=== PATIENT | female | born 1950 | race Caucasian/White ===

== ENCOUNTER 2017-01-19 21:18 | Emergency (ER) | payer BC ==
[2017-01-19 21:37] VITALS: BP 122/60
[2017-01-19] MEDS ORDERED: BSS OPTH.SOL* BTL OPHTHALMIC ONE (21:44)
[2017-01-19] MEDS ORDERED: Fluorescein Sodium TOPICAL* 1 MG TEST OPHTHALMIC ONE (21:44)
--- NOTE | 2017-01-19 21:54 | UC ---
Eye Complaint HPI - HPI Summary HPI Summary: left eye irritation, after working out in the garden today feels like a fb in eye - History of Current Complaint Chief Complaint: UCEye Stated Complaint: EYE IRRITATION Time Seen by Provider: 01/19/17 21:43 Hx Obtained From: Patient Hx Last Menstrual Period: n/a ?: No Onset/Duration: Sudden Onset, Lasting Hours, Still Present Timing: Constant Severity Initially: Moderate Severity Currently: Mild Location of Injury: Conjunctiva, Eye Lid (upper) Character: Foreign Body Sensation Aggravating Factor(s): Nothing Alleviating Factor(s): Nothing Associated Signs And Symptoms: Positive: Drainage (Clear) - Allergies/Home Medications Allergies/Adverse Reactions: Allergies Allergy/AdvReac Type Severity Reaction Status Date / Time Penicillins Allergy Intermediate Rash Verified 01/19/17 21:28 Sulfamethoxazole Allergy Intermediate Rash Verified 01/19/17 21:28 w/Trimethoprim [From Bactrim] Sulfa Antibiotics Allergy Unknown Verified 01/19/17 21:28 Reaction Details PMH/Surg Hx/FS Hx/Imm Hx Previously Healthy: No Endocrine History Of: Reports: Diabetes Denies: Thyroid Disease Cardiovascular History Of: Reports: Hypertension Denies: Cardiac Disorders Respiratory History Of: Reports: COPD Denies: Asthma GI/ History Of: Denies: Ulcer Cancer History Of: Denies: Breast Cancer - Surgical History Surgical History: Yes Surgery Procedure, Year, and Place: Knee Replacement X3Neck Fusion Hysterectomy 1986. Thyroid surgery - Family History Known Family History: Positive: None Family History: no cardio vascular issues in family lineage - Social History Occupation: Retired Lives: With Family Alcohol Use: None Substance Use Type: None Smoking Status (MU): Never Smoked Tobacco Household Exposure Type: Cigarettes - Immunization History Most Recent Influenza Vaccination: 2016 Most Recent Tetanus Shot: 07/02/14 [facility] [place] Review of Systems Constitutional: Negative Skin: Negative Eyes: Drainage - clae OS, Eye Redness - OS ENT: Negative Respiratory: Negative Cardiovascular: Negative Gastrointestinal: Negative Genitourinary: Negative Motor: Negative Neurovascular: Negative Musculoskeletal: Negative Neurological: Negative Psychological: Negative All Other Systems Reviewed And Are Negative: Yes Physical Exam Triage Information Reviewed: Yes Appearance: Well-Appearing, No Pain Distress, Well-Nourished Vital Signs: Initial Vital Signs Temp 98.2 F 01/19/17 21:30 Pulse 66 01/19/17 21:30 Resp 18 01/19/17 21:30 BP 122/60 01/19/17 21:30 Pulse Ox 97 01/19/17 21:30 Vital Signs Reviewed: Yes Eye Exam: Normal, Other Eyes: Positive: Conjunctiva Inflamed - os, Discharge - clear os ENT Exam: Normal ENT: Positive: Normal ENT inspection, Hearing grossly normal, Pharynx normal, TMs normal. Negative: Nasal congestion, Nasal drainage, Tonsillar swelling, Tonsillar exudate, Trismus, Other: Dental Exam: Normal Neck exam: Normal Neck: Positive: Supple, Nontender, No Lymphadenopathy Respiratory Exam: Normal Respiratory: Positive: Chest non-tender, Lungs clear, Normal breath sounds, No respiratory distress, No accessory muscle use Cardiovascular Exam: Normal Cardiovascular: Positive: RRR, No Murmur, Pulses Normal, Brisk Capillary Refill Musculoskeletal Exam: Normal Musculoskeletal: Positive: Strength Intact, ROM Intact, No Edema Neurological Exam: Normal Neurological: Positive: Alert, Muscle Tone Normal Psychological Exam: Normal Skin Exam: Normal Re-Evaluation - Re-Evaluation First Eval Change: Unchanged - small Laceration about 1 o'clock Eye Complaint Course/Dx - Course Course Of Treatment: erythromycin ointment, follow with pcp/opthom. prn - Differential Dx/Diagnosis Differential Diagnosis/HQI/PQRI: Corneal Abrasion, Periorbital Cellulitis, Orbital Cellulitis Provider Diagnoses: OS Corneal Abrasion Discharge - Discharge Plan Condition: Stable Disposition: HOME Patient Education Materials: Erythromycin (Into the eye), Corneal Abrasion (ED ) Referrals: Sarkis Oh MD [Medical Doctor] - If Needed
[2017-01-19] MEDS ORDERED: Erythromycin OPTH OINT* APPLIC OINT LEFT EYE ONE (21:55)
== END 2017-01-19 22:10 | disposition home or self-care (01) ==
LOC: UCCORT 21:18
DX: S05.02XA Injury of conjunctiva and corneal abrasion without foreign body, left eye, initial encounter (principal); X58.XXXA Exposure to other specified factors, initial encounter; Y93.9 Activity, unspecified; Y92.9 Unspecified place or not applicable; Y99.9 Unspecified external cause status
CPT/HCPCS: 99212; A9270-GY; G0463

== ENCOUNTER 2017-02-26 14:26 | Emergency (ER) | payer BC ==
[2017-02-26] MEDS ORDERED: NS 0.9% 1000 ML* 2,000 ML IV ONE (17:51)
[2017-02-26] MEDS ORDERED: Pantoprazole IV* 40 MG IV ONE (17:51)
[2017-02-26] MEDS ORDERED: Morphine INJ* 4 MG/ML 1 ML SYRINGE IV ONE (17:51)
[2017-02-26] MEDS ORDERED: Ondansetron INJ* 2 MG/ML VIAL IV ONE (17:51)
[2017-02-26 18:41] LABS: Mean Platelet Volume 9 um3 (7.4-10.4); Red Cell Distribution Width 15 % (10.5-15)
--- NOTE | 2017-02-26 18:41 | RAD ---
Indication: Upper abdominal pain. Real-time sonography of the right upper quadrant was performed. The liver is normal in size. No focal lesions or intrahepatic ductal dilatation is noted. The gallbladder demonstrates 6 mm gallbladder polyp. No pericholecystic fluid or wall thickening is identified. The common duct measures 4 mm. The right kidney measures 11.7 x 5.3 x 4.9 cm with no hydronephrosis. The pancreatic head, neck and proximal body demonstrates no mass or pancreatic duct dilatation. Aorta and inferior vena cava are unremarkable. IMPRESSION: Gallbladder polyp. No biliary duct dilatation is noted.
[2017-02-26 18:45] LABS: Hematocrit 41 % (35-47); Hemoglobin 13.6 g/dl (12.0-16.0); Mean Corpuscular HGB Conc 33 g/dl (31-36); Mean Corpuscular Hemoglobin 28 pg (27-31); Mean Corpuscular Volume 85 fL (80-97); Red Blood Count 4.81 10^6/ul (4.0-5.4); White Blood Count 11.1 10^3/ul (3.5-10.8)
[2017-02-26 19:00] LABS: Albumin 4.1 g/dL (3.2-5.2); BUN/Creatinine Ratio 23.9 (8-20); C Reactive Protein 7.79 mg/L (< 5.00); Calcium 9.7 mg/dL (8.6-10.3); EGFR African American 106.3 (>60); EGFR Non-African American 82.6 (>60); Globulin 3.2 g/dL (2-4); Magnesium 1.9 mg/dL (1.9-2.7); Potassium 3.6 mmol/L (3.5-5.0); Total Bilirubin 0.6 mg/dL (0.2-1.0); Total Protein 7.3 g/dL (6.4-8.9)
--- NOTE | 2017-02-26 19:08 | RAD ---
Indication: Epigastric pain. Single frontal view of the chest performed at 1830 hours was reviewed. Comparison is made with previous exam dated August 13, 2012. No mediastinal shift is noted. Heart is of normal size and configuration. Lung blanton appear clear. IMPRESSION: NO ACTIVE CARDIOPULMONARY DISEASE IS NOTED.
[2017-02-26] MEDS ORDERED: Al Hydrox/Mg Hydrox/Simet LIQ* 30 ML UDC PO ONE (19:16)
[2017-02-26] MEDS ORDERED: Lidocaine 2% VISCOUS* 15 ML UDC PO ONE (19:16)
[2017-02-26] MEDS ORDERED: Iodixanol* (CONTRAST) 320 MG/ML 100 ML SDV IV ONE (19:39)
--- NOTE | 2017-02-26 20:20 | RAD ---
Indication: Upper abdominal pain. Contrast: Administered 99.9 ml of VISAPAQUE 320 mgi/ml CT of the abdomen and pelvis was performed after oral and IV contrast demonstration. Coronal and sagittal reconstructed images were obtained. The lung bases demonstrate no pleural fluid, nodules or masses. Heart is of normal size without evidence of pericardial effusion. Liver is normal in size. No focal lesions or intrahepatic ductal dilatation is noted. The gallbladder demonstrates no calcific gallstones. No pericholecystic fluid or wall thickening is identified. The spleen is normal in size. The common duct is not dilated. The pancreas demonstrates no mass or pancreatic duct dilatation. No adrenal masses are noted. The kidneys demonstrate symmetric nephrograms without focal lesions or hydronephrosis. Aorta demonstrates no aneurysmal dilatation. Mild calcifications from atherosclerosis is noted. There is moderate degree of wall thickening in the gastric antrum. This is suspicious for antral gastritis. Clinical correlation is suggested. Small bowel demonstrates no abnormal dilatation. Colon is filled with stool. CT of the pelvis demonstrates no retroperitoneal or pelvic adenopathy. Scattered 5 to 7 mm common iliac and external iliac lymph nodes are scattered throughout the pelvis. The patient appears to be status post hysterectomy. A structure resembling the left ovary is noted. The urinary bladder demonstrates no focal thickening. No hernias are noted. IMPRESSION: THERE IS DIFFUSE SUBMUCOSAL EDEMA IN THE GASTRIC ANTRUM SUSPICIOUS FOR ANTRAL GASTRITIS. CLINICAL CORRELATION IS SUGGESTED. PATIENT IS STATUS POST HYSTERECTOMY. NO OTHER MASSES OR FLUID COLLECTIONS ARE NOTED.
[2017-02-26 20:33] LABS: TSH (Thyroid Stimulating Horm) 2.02 mcIU/mL (0.34-5.60)
[2017-02-27 07:37] VITALS: BP 177/65
--- NOTE | 2017-03-03 22:36 | ED ---
Shabana Schuster Alfonso, scribed for Joaquin Kasper MD on 02/26/17 at 1752 . Abdominal Pain/Female - HPI Summary HPI Summary: This patient is a 67 year old female presenting to [facility] c/o sharp upper abdominal pain since two days ago. The pain has been constant and does not radiate. She states I think I got a hernia at the top of my ribs. She rates the pain 8/10 in severity. Sx aggravated and alleviated by nothing. She reports loss of appetite and N/V. She denies heart burn, diarrhea, constipation, melena , urinary symptoms, and SOB. PMHx of hysterectomy. - History of Current Complaint Chief Complaint: EDAbdPain Stated Complaint: STOMACH PAIN Time Seen by Provider: 02/26/17 17:33 Hx Obtained From: Patient Onset/Duration: Sudden Onset, Lasting Days - 2 days, Still Present Pain Intensity: 8 Pain Scale Used: 0-10 Numeric Location: Other - Upper Radiates: No Character: Sharp Aggravating Factor(s): Nothing Alleviating Factor(s): Nothing Associated Signs and Symptoms: Positive: Other: - Positive loss of appetite and N/V; negative heart burn, diarrhea, constipation, melena, urinary symptoms, and SOB. Allergies/Adverse Reactions: Allergies Allergy/AdvReac Type Severity Reaction Status Date / Time Penicillins Allergy Intermediate Rash Verified 01/19/17 21:28 Sulfamethoxazole Allergy Intermediate Rash Verified 01/19/17 21:28 w/Trimethoprim [From Bactrim] Sulfa Antibiotics Allergy Unknown Verified 01/19/17 21:28 Reaction Details PMH/Surg Hx/FS Hx/Imm Hx Endocrine/Hematology History: Reports: Hx Diabetes Denies: Hx Thyroid Disease Cardiovascular History: Reports: Hx Angina, Hx Hypercholesterolemia, Hx Hypertension Respiratory History: Reports: Hx Chronic Obstructive Pulmonary Disease (COPD) Denies: Hx Asthma GI History: Denies: Hx Ulcer Musculoskeletal History: Reports: Hx Rheumatoid Arthritis - Cancer History Hx Radiation Therapy: No - Surgical History Surgery Procedure, Year, and Place: Knee Replacement X3Neck Fusion Hysterectomy 1986. Thyroid surgery Infectious Disease History: No Infectious Disease History: Denies: Hx Hepatitis, Hx Human Immunodeficiency Virus (HIV), History Other Infectious Disease, Traveled Outside the [place] in Last 30 Days - Family History Known Family History: Negative: Cardiac Disease Family History: no cardio vascular issues in family lineage - Social History Alcohol Use: None Substance Use Type: Reports: None Smoking Status (MU): Never Smoked Tobacco Review of Systems Positive: Other - Negative heart burn Negative: Shortness Of Breath Positive: Abdominal Pain - Sharp upper abd pain, Vomiting, Nausea, Other - Positive loss of appetite; negative constipation and melena. Negative: Diarrhea Positive: no symptoms reported All Other Systems Reviewed And Are Negative: Yes Physical Exam Triage Information Reviewed: Yes Vital Signs On Initial Exam: Initial Vitals Temp Pulse Resp BP Pulse Ox 98.8 F 63 18 168/105 99 02/26/17 14:45 02/26/17 14:45 02/26/17 14:45 02/26/17 14:45 02/26/17 14:45 Vital Signs Reviewed: Yes Appearance: Positive: Well-Appearing, Pain Distress - Moderate, Obese Skin: Positive: Warm, Skin Color Reflects Adequate Perfusion, Dry Head/Face: Positive: Normal Head/Face Inspection Eyes: Positive: EOMI, MEME ENT: Positive: Normal ENT inspection Neck: Positive: Supple, Nontender Respiratory/Lung Sounds: Positive: Clear to Auscultation, Breath Sounds Present Cardiovascular: Positive: RRR Abdomen Description: Positive: Other: - Tender in epigastrium Bowel Sounds: Positive: Hypoactive Musculoskeletal: Positive: Normal, Strength/ROM Intact Neurological: Positive: Normal, Sensory/Motor Intact, Alert, Oriented to Person Place, Time Psychiatric: Positive: Affect/Mood Appropriate - Joleen Coma Scale Coma Scale Total: 15 Diagnostics - Vital Signs Vital Signs Temp Pulse Resp BP Pulse Ox 02/26/17 17:24 98.1 F 58 18 161/56 98 02/26/17 16:24 98.7 F 68 16 171/85 99 02/26/17 14:45 98.8 F 63 18 168/105 99 - Laboratory Lab Results: Lab Results 02/26/17 02/26/17 02/26/17 Range/Units 18:32 18:32 18:32 WBC 11.1 H (3.5-10.8) 10^3/ul RBC 4.81 (4.0-5.4) 10^6/ul Hgb 13.6 (12.0-16.0) g/dl Hct 41 (35-47) % MCV 85 (80-97) fL MCH 28 (27-31) pg MCHC 33 (31-36) g/dl RDW 15 (10.5-15) % Plt Count 258 (150-450) 10^3/ul MPV 9 (7.4-10.4) um3 Neut % (Auto) 74.2 (38-83) % Lymph % (Auto) 18.1 L (25-47) % Clayton % (Auto) 6.2 (1-9) % Eos % (Auto) 0.7 (0-6) % Baso % (Auto) 0.8 (0-2) % Absolute Neuts (auto) 8.3 H (1.5-7.7) 10^3/ul Absolute Lymphs (auto) 2.0 (1.0-4.8) 10^3/ul Absolute Monos (auto) 0.7 (0-0.8) 10^3/ul Absolute Eos (auto) 0.1 (0-0.6) 10^3/ul Absolute Basos (auto) 0.1 (0-0.2) 10^3/ul Absolute Nucleated RBC 0 10^3/ul Nucleated RBC % 0 INR (Anticoag Therapy) 0.94 (0.89-1.11) APTT 28.4 (26.0-36.3) seconds Sodium 136 (133-145) mmol/L Potassium 3.6 (3.5-5.0) mmol/L Chloride 104 (101-111) mmol/L Carbon Dioxide 23 (22-32) mmol/L Anion Gap 9 (2-11) mmol/L BUN 17 (6-24) mg/dL Creatinine 0.71 (0.51-0.95) mg/dL Est GFR ( Amer) 106.3 (>60) Est GFR (Non-Af Amer) 82.6 (>60) BUN/Creatinine Ratio 23.9 H (8-20) Glucose 238 H (70-100) mg/dL Lactic Acid (0.5-2.0) mmol/L Calcium 9.7 (8.6-10.3) mg/dL Magnesium 1.9 (1.9-2.7) mg/dL Total Bilirubin 0.60 (0.2-1.0) mg/dL AST 12 L (13-39) U/L ALT 11 (7-52) U/L Alkaline Phosphatase 70 (34-104) U/L Total Creatine Kinase 30 (10-223) U/L CK-MB (CK-2) 0.9 (0.6-6.3) ng/mL Troponin I 0.00 (<0.04) ng/mL C-Reactive Protein 7.79 H (< 5.00) mg/L B-Natriuretic Peptide ( - 100) pg/mL Total Protein 7.3 (6.4-8.9) g/dL Albumin 4.1 (3.2-5.2) g/dL Globulin 3.2 (2-4) g/dL Albumin/Globulin Ratio 1.3 (1-3) Lipase 16 (11.0-82.0) U/L TSH 2.02 (0.34-5.60) mcIU/mL 02/26/17 02/26/17 Range/Units 18:32 18:32 WBC (3.5-10.8) 10^3/ul RBC (4.0-5.4) 10^6/ul Hgb (12.0-16.0) g/dl Hct (35-47) % MCV (80-97) fL MCH (27-31) pg MCHC (31-36) g/dl RDW (10.5-15) % Plt Count (150-450) 10^3/ul MPV (7.4-10.4) um3 Neut % (Auto) (38-83) % Lymph % (Auto) (25-47) % Clayton % (Auto) (1-9) % Eos % (Auto) (0-6) % Baso % (Auto) (0-2) % Absolute Neuts (auto) (1.5-7.7) 10^3/ul Absolute Lymphs (auto) (1.0-4.8) 10^3/ul Absolute Monos (auto) (0-0.8) 10^3/ul Absolute Eos (auto) (0-0.6) 10^3/ul Absolute Basos (auto) (0-0.2) 10^3/ul Absolute Nucleated RBC 10^3/ul Nucleated RBC % INR (Anticoag Therapy) (0.89-1.11) APTT (26.0-36.3) seconds Sodium (133-145) mmol/L Potassium (3.5-5.0) mmol/L Chloride (101-111) mmol/L Carbon Dioxide (22-32) mmol/L Anion Gap (2-11) mmol/L BUN (6-24) mg/dL Creatinine (0.51-0.95) mg/dL Est GFR ( Amer) (>60) Est GFR (Non-Af Amer) (>60) BUN/Creatinine Ratio (8-20) Glucose (70-100) mg/dL Lactic Acid 1.1 (0.5-2.0) mmol/L Calcium (8.6-10.3) mg/dL Magnesium (1.9-2.7) mg/dL Total Bilirubin (0.2-1.0) mg/dL AST (13-39) U/L ALT (7-52) U/L Alkaline Phosphatase (34-104) U/L Total Creatine Kinase (10-223) U/L CK-MB (CK-2) (0.6-6.3) ng/mL Troponin I (<0.04) ng/mL C-Reactive Protein (< 5.00) mg/L B-Natriuretic Peptide 79 ( - 100) pg/mL Total Protein (6.4-8.9) g/dL Albumin (3.2-5.2) g/dL Globulin (2-4) g/dL Albumin/Globulin Ratio (1-3) Lipase (11.0-82.0) U/L TSH (0.34-5.60) mcIU/mL Result Diagrams: 02/26/17 18:32 02/26/17 18:32 Lab Statement: Any lab studies that have been ordered have been reviewed, and results considered in the medical decision making process. - Radiology CXR Radiology Interpretation Completed By: Radiologist - Pending official radiologist interpretation. - CT CT A/P CT Interpretation Completed By: Radiologist - Pending official radiologist interpretation. - Additional Comments Diagnostic Additional Comments: US Gallbladder : Gallbladder polyp. No biliary duct dilatation is noted. Abdominal Pain Fem Course/Dx - Diagnoses Provider Diagnoses: Abdominal pain Discharge - Discharge Plan Condition: Stable Disposition: HOME Prescriptions: Famotidine TAB* [Pepcid 20 MG TAB*] 20 mg PO BID #20 tab Patient Education Materials: Famotidine (By mouth), Gastritis (ED), Abdominal Pain (ED) Referrals: Nikita Fairbanks MD [Primary Care Provider] - 2 Days The documentation as recorded by the Shabana goncalves Alfonso accurately reflects the service I personally performed and the decisions made by me, Joaquin Kasper MD.
--- NOTE | 2017-03-07 04:43 | ED ---
Geovany Schuster Claudia, scribed for Sarbjit Cruz MD on 02/26/17 at 1901 . Progress - Progress Note Progress Note: Sign-out received at [address] Kasper awaiting CXR and CT A/P. CXR: 1917 NO ACUTE CARDIOPULMONARY DISEASE IS NOTED. CT Abdomen/Pelvis: THERE IS DIFFUSE SUBMUCOSAL EDEMA IN THE GASTRIC ANTRUM SUSPICIOUS FOR ANTRAL GASTRITIS. CLINICAL CORRELATION IS SUGGESTED. PATIENT IS STATUS POST HYSTERECTOMY. NO OTHER MASSES OR FLUID COLLECTIONS ARE NOTED. Pt is informed of imaging. The pt is agreeable with the plan to be d/c home and follow-up instructions. Course/Dx - Diagnoses Provider Diagnoses: Abdominal pain The documentation as recorded by the Geovany goncalves Claudia accurately reflects the service I personally performed and the decisions made by Anthony silva David, MD.
== END 2017-02-26 21:11 | disposition home or self-care (01) ==
LOC: ED 14:26
DX: R10.9 Unspecified abdominal pain (principal)
CPT/HCPCS: 36415; 71010; 74177; 76705; 80053; 82550; 82553; 83605; 83690; 83735; 83880; 84443; 84484; 85025; 85610; 85730; 86140; 96374; 96375; 99283; A9270-GY; J2270; J2405; Q9967

== ENCOUNTER 2017-03-08 18:50 | Inpatient (IN) | payer BC, MEDICARE ==
[2017-03-08 19:37] LABS: Hematocrit 38 % (35-47); Hemoglobin 12.2 g/dl (12.0-16.0); Mean Corpuscular HGB Conc 32 g/dl (31-36); Mean Corpuscular Hemoglobin 28 pg (27-31); Mean Corpuscular Volume 86 fL (80-97); Mean Platelet Volume 9 um3 (7.4-10.4); Red Blood Count 4.35 10^6/ul (4.0-5.4); Red Cell Distribution Width 16 % (10.5-15); White Blood Count 11.4 10^3/ul (3.5-10.8)
[2017-03-08 19:47] LABS: BUN/Creatinine Ratio 26.5 (8-20); Calcium 9.2 mg/dL (8.6-10.3); EGFR African American 111.7 (>60); EGFR Non-African American 86.8 (>60); Globulin 2.7 g/dL (2-4); Magnesium 1.8 mg/dL (1.9-2.7); Potassium 3.2 mmol/L (3.5-5.0); Total Bilirubin 0.4 mg/dL (0.2-1.0); Total Protein 6.7 g/dL (6.4-8.9)
[2017-03-08] MEDS ORDERED: NS 0.9% 1000 ML* 1,000 ML IV ONE (20:38)
[2017-03-08] MEDS ORDERED: Dextrose 50% Syringe 50 ML* 25 GM/50 ML SYRINGE IV PUSH PRN (20:42)
[2017-03-08] MEDS ORDERED: Potassium Chlor TAB* 20 MEQ TAB.ER PO ONE (20:43)
[2017-03-08 20:54] LABS: TSH (Thyroid Stimulating Horm) 2.55 mcIU/mL (0.34-5.60)
[2017-03-08 21:03] LABS: Urine Bilirubin Negative (Negative); Urine Glucose 1+(50 mg/dL) (Negative); Urine Nitrite Negative (Negative)
[2017-03-08] MEDS: Enoxaparin(*) 40 MG/0.4 ML SYR SUBCUT SCH (22:19)
[2017-03-08] MEDS: Insulin LISPRO* 1 UNITS UNIT SUBCUT SCH (22:36)
[2017-03-09] MEDS: Magnesium Oxide TAB* 400 MG PO SCH ×3 (00:08→17:05)
[2017-03-09 01:30] LABS: Benzodiazepine Urine Screen None Detected (None Detect)
[2017-03-09 05:25] LABS: Hematocrit 36 % (35-47); Hemoglobin 11.6 g/dl (12.0-16.0); Mean Corpuscular HGB Conc 33 g/dl (31-36); Mean Corpuscular Hemoglobin 28 pg (27-31); Mean Corpuscular Volume 87 fL (80-97); Mean Platelet Volume 10 um3 (7.4-10.4); Red Blood Count 4.08 10^6/ul (4.0-5.4); Red Cell Distribution Width 16 % (10.5-15); White Blood Count 10.7 10^3/ul (3.5-10.8)
[2017-03-09 05:31] LABS: Anion Gap 4 mmol/L (2-11); BUN/Creatinine Ratio 20.3 (8-20); Blood Urea Nitrogen 13 mg/dL (6-24); CO2 Carbon Dioxide 27 mmol/L (22-32); Calcium 8.9 mg/dL (8.6-10.3); Chloride 108 mmol/L (101-111); EGFR African American 119.8 (>60); EGFR Non-African American 93.1 (>60); Glucose 150 mg/dL (70-100); Potassium 3.2 mmol/L (3.5-5.0); Sodium 139 mmol/L (133-145)
[2017-03-09] MEDS: Insulin LISPRO* 1 UNITS UNIT SUBCUT SCH ×4 (08:11→21:57)
[2017-03-09] MEDS: Valsartan TAB* 160 MG PO SCH (08:23)
[2017-03-09] MEDS: Repaglinide TAB* 1 MG PO SCH ×3 (08:24→17:05)
[2017-03-09] MEDS: Atenolol TAB* 25 MG PO SCH (08:24)
[2017-03-09] MEDS: Cholecalciferol TAB* 1000 UNITS PO SCH (08:24)
[2017-03-09] MEDS: amLODIPine TAB* 5 MG PO SCH (08:24)
[2017-03-09] MEDS: Hydroxychloroquine TAB* 200 MG PO SCH ×2 (08:25→21:46)
[2017-03-09] MEDS: CMCS:OMEGA-3 FATTY ACIDS (NF) 1,000 MG CAP PO SCH ×2 (08:25→21:46)
[2017-03-09] MEDS: Insulin GLARGINE(*) 1 UNITS UNIT SUBCUT SCH (08:25)
[2017-03-09] MEDS ORDERED: Prochlorperazine TAB* 10 MG ONE (09:04)
[2017-03-09] MEDS ORDERED: Prochlorperazine TAB* 10 MG PO PRN (09:28)
--- NOTE | 2017-03-09 09:55 | RAD ---
Indication: Syncope. Single frontal view of the chest performed at 2354 hours was reviewed. Comparison is made with previous exam dated February 26, 2017. Hyperinflated lung barber are noted. The heart is at the upper limits of normal size. No pleural fluid or pneumonia is identified. IMPRESSION: NO ACTIVE CARDIOPULMONARY DISEASE IS NOTED. LUNG BARBER APPEAR HYPERINFLATED.
[2017-03-09 10:39] LABS: Vitamin B12 > 1450 pg/mL (180-914)
[2017-03-09] MEDS: KCL 20 MEQ/100 ML IVPREMIX* 20 MEQ/100 ML BAG IV SCH ×2 (11:16→15:32)
[2017-03-09] MEDS ORDERED: Diazepam TAB(*) 5 MG PO ONE (13:00)
--- NOTE | 2017-03-09 13:22 | HP ---
CC: Dr. Fairbanks * ADMISSION HISTORY AND PHYSICAL: DATE OF ADMISSION: 03/09/17 CHIEF COMPLAINT: Syncope. HISTORY OF PRESENT ILLNESS: Ms. Diane is a 67-year-old woman with history of diabetes, who went through a parade today with her son and family. After the parade, she remembers being seated on her lawn in front of her house watching some of the people return from the parade. The sequence of events remain murky to her at this point, but she does remember being on the lawn and vomiting. She apparently was alone at this point. Then, she remembers waking up in the bathroom of her house on the floor. She could hear her son calling her name, but she could not get up. The son who came to look for her did find her in the bathroom unconscious for unclear amount of time. She has no memory of how she got from the front lawn of her house when she was vomiting into the bathroom. There was no injury. No apparent fall. No seizure activity is reported. No tongue biting or urinary incontinence. She denies the similar issues in the past. She denies any palpitations during this episode. PAST MEDICAL HISTORY: Includes type 2 diabetes and rheumatoid arthritis. She also has hypertension and vitamin B12 deficiency. PAST SURGICAL HISTORY: Hysterectomy, thyroglossal cyst removal, total knee replacement on 4 occasions, 2 on each side. MEDICATIONS ON ADMISSION: 1. Amlodipine 10 mg p.o. daily. 2. Atenolol 25 mg p.o. daily q.a.m. 3. Candesartan 32 mg p.o. daily. 4. Vitamin D 1000 units p.o. daily. 5. Cyanocobalamin 2500 mcg p.o. daily. 6. Plaquenil 200 mg p.o. b.i.d. 7. Insulin glargine 38 units subcutaneous daily. 8. Fish oil 1000 mg p.o. b.i.d. 9. Repaglinide 1 mg p.o. q.a.c. t.i.d. ALLERGIES: PENICILLIN, BACTRIM, AND SULFA. 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 The patient is , but then remarried. She has 3 kids from her first marriage. The patient never smoked. She drinks alcohol occasionally. No recreational drugs. FAMILY HISTORY: Notable for mother of heart disease, but also had diabetes. Father is unknown. REVIEW OF SYSTEMS: The patient denies any fevers, anorexia, or weight loss. The patient denies any chest pain or palpitations. The patient denies any shortness of breath, cough, or hemoptysis. The patient denies any diarrhea or abdominal pain, but she does remember vomiting. Remainder of her 14-point review of systems is negative other than that mentioned in the HPI. PHYSICAL EXAMINATION GENERAL: She is alert and in no acute distress. VITAL SIGNS: Her temperature is 95.5, pulse 64, respirations 14, blood pressure is 160/64, O2 saturation is 96%. HEENT: Head is normocephalic, atraumatic. Sclerae anicteric. Pupils are equal , round and reactive to light and accommodation. Oropharynx is moist, no lesions. NECK: No JVD. No carotid bruit. No thyromegaly. LUNGS: Clear to auscultation and percussion bilaterally. HEART: Regular rate and rhythm. No murmurs or gallops. ABDOMEN: Soft, nontender, positive bowel sounds. No hepatosplenomegaly. EXTREMITIES: No peripheral edema. Dorsalis pedis pulses are 1+ bilaterally. NEUROLOGIC: Cranial nerves II through XII are intact. Motor strength is 5/5 throughout. Deep tendon reflexes are symmetric. PSYCHIATRIC: She is alert and oriented x3. LABORATORY DATA: Sodium 138, potassium 3.2, chloride 106, bicarb 23, BUN 18, creatinine 0.68, glucose 139, calcium 9.2, magnesium 1.8. Lactic acid 2.9. Troponin 0.00 on 2 occasions. D-dimer is negative. White count is 11.4, hemoglobin 12.2, hematocrit is 38%, and platelets 256. DIAGNOSTIC DATA: EKG shows sinus bradycardia, ectopic pacemaker, diffuse T- wave flattening, inferior Q waves. Q waves are old compared with an EKG from June of 2015. Chest x-ray is pending. ASSESSMENT AND PLAN: A 67-year-old woman presenting with episode of alteration in consciousness and possible syncope. The differential would include seizure, hypoglycemic episode, cardiac arrhythmia, or less likely a transient ischemic attack. The patient will be admitted to the hospital and observed overnight on telemetry for arrhythmias and have serial troponins to look for cardiac ischemia. The patient should have as an outpatient MRI and EEG to look for possible seizure focus and seizure activity. She also may need an outpatient Holter monitor to look for cardiac arrhythmia if nothing is seen on telemetry. The patient does have low magnesium and low potassium. These will be repleted and rechecked. These low electrolyte abnormalities could lead to cardiac arrhythmias or could lead to weakness. Code status is full. Deep venous thrombosis prophylaxis will be with subcutaneous Lovenox while she is here in the hospital. [id number]/[facility] #: [id number] ROMA
--- NOTE | 2017-03-09 21:27 | ED ---
Jaswinder Schuster Alok, scribed for Sudarshan Borges MD on 03/08/17 at 1929 . Syncope/Near Syncope - HPI Summary HPI Summary: 67F presents to the ED BIBA following syncope event earlier today. Pt was reportedly sitting by the side of the road after participating in a memorial bike ride she does every year when she lost consciousness. Pt has not memory of the event and notes weakness/shakiness currently. PMHx includes IDDM. Pt's blood sugar was measured to be 144 by EMS [facility]. - History Of Current Complaint Chief Complaint: EDSyncope Time Seen by Provider: 03/08/17 18:55 Hx Obtained From: Patient Onset/Duration: Sudden Onset, Still Present Context: Witnessed Activity At Onset: At Rest Associated Head Trauma: No Aggravating Factor(s): Nothing Alleviating Factor(s): Nothing Associated Signs And Symptoms: Weakness - Allergies/Home Medications Allergies/Adverse Reactions: Allergies Allergy/AdvReac Type Severity Reaction Status Date / Time Penicillins Allergy Intermediate Rash Verified 01/19/17 21:28 Sulfamethoxazole Allergy Intermediate Rash Verified 01/19/17 21:28 w/Trimethoprim [From Bactrim] Sulfa Antibiotics Allergy Unknown Verified 01/19/17 21:28 Reaction Details Home Medications: Home Medications Cholecalciferol [D 1000] 1,000 unit PO DAILY 03/08/17 [History Confirmed ] Cyanocobalamin [B12] 2,500 mcg PO DAILY 03/08/17 [History Confirmed 03/08/17] Hydroxychloroquine TAB* [Plaquenil TAB*] 200 mg PO BID 03/08/17 [History Confirmed 03/08/17] [place]-3 Fatty Acids [Fish Oil] 1,000 mg PO BID 03/08/17 [History Confirmed 03/08] Repaglinide TAB* [Prandin TAB*] 1 mg PO AC 03/08/17 [History Confirmed 03/08/17] PMH/Surg Hx/FS Hx/Imm Hx Endocrine/Hematology History: Reports: Hx Diabetes Denies: Hx Thyroid Disease Cardiovascular History: Reports: Hx Angina, Hx Hypercholesterolemia, Hx Hypertension Respiratory History: Reports: Hx Chronic Obstructive Pulmonary Disease (COPD) Denies: Hx Asthma GI History: Denies: Hx Ulcer History: Denies: Hx Renal Disease Musculoskeletal History: Reports: Hx Rheumatoid Arthritis - Cancer History Hx Radiation Therapy: No - Surgical History Surgery Procedure, Year, and Place: Knee Replacement X3Neck Fusion Hysterectomy 1986. Thyroid surgery Infectious Disease History: No Infectious Disease History: Denies: Hx Hepatitis, Hx Human Immunodeficiency Virus (HIV), History Other Infectious Disease, Traveled Outside the [place] in Last 30 Days - Family History Known Family History: Negative: Cardiac Disease Family History: no cardio vascular issues in family lineage - Social History Occupation: Retired Lives: With Family Alcohol Use: None Substance Use Type: Reports: None Smoking Status (MU): Never Smoked Tobacco Review of Systems Negative: Fever Positive: Weakness, Syncope All Other Systems Reviewed And Are Negative: Yes Physical Exam Triage Information Reviewed: Yes Vital Signs On Initial Exam: Initial Vitals Temp Pulse Resp BP Pulse Ox 96 F 64 16 160/64 99 03/08/17 18:53 03/08/17 18:53 03/08/17 18:53 03/08/17 18:53 03/08/17 18:53 Vital Signs Reviewed: Yes Appearance: Positive: Well-Appearing, No Pain Distress Skin: Positive: Warm, Skin Color Reflects Adequate Perfusion, Dry Head/Face: Positive: Normal Head/Face Inspection Eyes: Positive: Normal ENT: Positive: Normal ENT inspection Neck: Positive: Supple, Nontender Respiratory/Lung Sounds: Positive: Clear to Auscultation, Breath Sounds Present Cardiovascular: Positive: RRR Abdomen Description: Positive: Nontender, Soft Bowel Sounds: Positive: Present Musculoskeletal: Positive: Normal Neurological: Positive: Normal Psychiatric: Positive: Normal, Affect/Mood Appropriate Diagnostics - Vital Signs Vital Signs Temp Pulse Resp BP Pulse Ox 03/08/17 18:53 96 F 64 16 160/64 99 - Laboratory Lab Results: Lab Results 03/08/17 03/08/17 03/08/17 Range/Units 19:20 19:20 19:20 WBC 11.4 H (3.5-10.8) 10^3/ul RBC 4.35 (4.0-5.4) 10^6/ul Hgb 12.2 (12.0-16.0) g/dl Hct 38 (35-47) % MCV 86 (80-97) fL MCH 28 (27-31) pg MCHC 32 (31-36) g/dl RDW 16 H (10.5-15) % Plt Count 256 (150-450) 10^3/ul MPV 9 (7.4-10.4) um3 Neut % (Auto) 76.4 (38-83) % Lymph % (Auto) 14.4 L (25-47) % [place] % (Auto) 6.5 (1-9) % Eos % (Auto) 2.1 (0-6) % Baso % (Auto) 0.6 (0-2) % Absolute Neuts (auto) 8.7 H (1.5-7.7) 10^3/ul Absolute Lymphs (auto) 1.7 (1.0-4.8) 10^3/ul Absolute Monos (auto) 0.7 (0-0.8) 10^3/ul Absolute Eos (auto) 0.2 (0-0.6) 10^3/ul Absolute Basos (auto) 0.1 (0-0.2) 10^3/ul Absolute Nucleated RBC 0.01 10^3/ul Nucleated RBC % 0.1 D-Dimer, Quantitative (Less Than 230) ng/mL Sodium 138 (133-145) mmol/L Potassium 3.2 L (3.5-5.0) mmol/L Chloride 106 (101-111) mmol/L Carbon Dioxide 23 (22-32) mmol/L Anion Gap 9 (2-11) mmol/L BUN 18 (6-24) mg/dL Creatinine 0.68 (0.51-0.95) mg/dL Est GFR ( Amer) 111.7 (>60) Est GFR (Non-Af Amer) 86.8 (>60) BUN/Creatinine Ratio 26.5 H (8-20) Glucose 139 H (70-100) mg/dL POC Glucose (mg/dL) (74-106) mg/dL Lactic Acid 2.9 H* (0.5-2.0) mmol/L Calcium 9.2 (8.6-10.3) mg/dL Magnesium 1.8 L (1.9-2.7) mg/dL Total Bilirubin 0.40 (0.2-1.0) mg/dL AST 13 (13-39) U/L ALT 12 (7-52) U/L Alkaline Phosphatase 54 (34-104) U/L Troponin I 0.00 (<0.04) ng/mL C-Reactive Protein (< 5.00) mg/L Total Protein 6.7 (6.4-8.9) g/dL Albumin 4.0 (3.2-5.2) g/dL Globulin 2.7 (2-4) g/dL Albumin/Globulin Ratio 1.5 (1-3) Vitamin B12 (180-914) pg/mL TSH 2.55 (0.34-5.60) mcIU/mL Urine Color Urine Appearance Urine pH (5-9) Ur Specific [place] (1.010-1.030) Urine Protein (Negative) Urine Ketones (Negative) Urine Blood (Negative) Urine Nitrate (Negative) Urine Bilirubin (Negative) Urine Urobilinogen (Negative) Ur Leukocyte Esterase (Negative) Urine Glucose (Negative) Urine Opiates Screen (None Detect) Ur Barbiturates Screen (None Detect) Ur Phencyclidine Scrn (None Detect) Ur Amphetamines Screen (None Detect) U Benzodiazepines Scrn (None Detect) Urine Cocaine Screen (None Detect) U Cannabinoids Screen (None Detect) 03/08/17 03/08/17 03/08/17 Range/Units 19:20 20:50 22:12 WBC (3.5-10.8) 10^3/ul RBC (4.0-5.4) 10^6/ul Hgb (12.0-16.0) g/dl Hct (35-47) % MCV (80-97) fL MCH (27-31) pg MCHC (31-36) g/dl RDW (10.5-15) % Plt Count (150-450) 10^3/ul MPV (7.4-10.4) um3 Neut % (Auto) (38-83) % Lymph % (Auto) (25-47) % Emery % (Auto) (1-9) % Eos % (Auto) (0-6) % Baso % (Auto) (0-2) % Absolute Neuts (auto) (1.5-7.7) 10^3/ul Absolute Lymphs (auto) (1.0-4.8) 10^3/ul Absolute Monos (auto) (0-0.8) 10^3/ul Absolute Eos (auto) (0-0.6) 10^3/ul Absolute Basos (auto) (0-0.2) 10^3/ul Absolute Nucleated RBC 10^3/ul Nucleated RBC % D-Dimer, Quantitative < 200 (Less Than 230) ng/mL Sodium (133-145) mmol/L Potassium (3.5-5.0) mmol/L Chloride (101-111) mmol/L Carbon Dioxide (22-32) mmol/L Anion Gap (2-11) mmol/L BUN (6-24) mg/dL Creatinine (0.51-0.95) mg/dL Est GFR ( Amer) (>60) Est GFR (Non-Af Amer) (>60) BUN/Creatinine Ratio (8-20) Glucose (70-100) mg/dL POC Glucose (mg/dL) 129 H (74-106) mg/dL Lactic Acid (0.5-2.0) mmol/L Calcium (8.6-10.3) mg/dL Magnesium (1.9-2.7) mg/dL Total Bilirubin (0.2-1.0) mg/dL AST (13-39) U/L ALT (7-52) U/L Alkaline Phosphatase (34-104) U/L Troponin I (<0.04) ng/mL C-Reactive Protein (< 5.00) mg/L Total Protein (6.4-8.9) g/dL Albumin (3.2-5.2) g/dL Globulin (2-4) g/dL Albumin/Globulin Ratio (1-3) Vitamin B12 (180-914) pg/mL TSH (0.34-5.60) mcIU/mL Urine Color Yellow Urine Appearance Clear Urine pH 5.0 (5-9) Ur Specific [place] 1.012 (1.010-1.030) Urine Protein Negative (Negative) Urine Ketones Negative (Negative) Urine Blood Negative (Negative) Urine Nitrate Negative (Negative) Urine Bilirubin Negative (Negative) Urine Urobilinogen Negative (Negative) Ur Leukocyte Esterase Negative (Negative) Urine Glucose 1+(50 mg/dl) H (Negative) Urine Opiates Screen (None Detect) Ur Barbiturates Screen (None Detect) Ur Phencyclidine Scrn (None Detect) Ur Amphetamines Screen (None Detect) U Benzodiazepines Scrn (None Detect) Urine Cocaine Screen (None Detect) U Cannabinoids Screen (None Detect) 03/08/17 03/09/1717 Range/Units 22:45 00:35 01:52 WBC (3.5-10.8) 10^3/ul RBC (4.0-5.4) 10^6/ul Hgb (12.0-16.0) g/dl Hct (35-47) % MCV (80-97) fL MCH (27-31) pg MCHC (31-36) g/dl RDW (10.5-15) % Plt Count (150-450) 10^3/ul MPV (7.4-10.4) um3 Neut % (Auto) (38-83) % Lymph % (Auto) (25-47) % [place]y % (Auto) (1-9) % Eos % (Auto) (0-6) % Baso % (Auto) (0-2) % Absolute Neuts (auto) (1.5-7.7) 10^3/ul Absolute Lymphs (auto) (1.0-4.8) 10^3/ul Absolute Monos (auto) (0-0.8) 10^3/ul Absolute Eos (auto) (0-0.6) 10^3/ul Absolute Basos (auto) (0-0.2) 10^3/ul Absolute Nucleated RBC 10^3/ul Nucleated RBC % D-Dimer, Quantitative (Less Than 230) ng/mL Sodium (133-145) mmol/L Potassium (3.5-5.0) mmol/L Chloride (101-111) mmol/L Carbon Dioxide (22-32) mmol/L Anion Gap (2-11) mmol/L BUN (6-24) mg/dL Creatinine (0.51-0.95) mg/dL Est GFR ( Amer) (>60) Est GFR (Non-Af Amer) (>60) BUN/Creatinine Ratio (8-20) Glucose (70-100) mg/dL POC Glucose (mg/dL) (74-106) mg/dL Lactic Acid (0.5-2.0) mmol/L Calcium (8.6-10.3) mg/dL Magnesium (1.9-2.7) mg/dL Total Bilirubin (0.2-1.0) mg/dL AST (13-39) U/L ALT (7-52) U/L Alkaline Phosphatase (34-104) U/L Troponin I 0.00 0.00 (<0.04) ng/mL C-Reactive Protein (< 5.00) mg/L Total Protein (6.4-8.9) g/dL Albumin (3.2-5.2) g/dL Globulin (2-4) g/dL Albumin/Globulin Ratio (1-3) Vitamin B12 (180-914) pg/mL TSH (0.34-5.60) mcIU/mL Urine Color Urine Appearance Urine pH (5-9) Ur Specific [place] (1.010-1.030) Urine Protein (Negative) Urine Ketones (Negative) Urine Blood (Negative) Urine Nitrate (Negative) Urine Bilirubin (Negative) Urine Urobilinogen (Negative) Ur Leukocyte Esterase (Negative) Urine Glucose (Negative) Urine Opiates Screen None detected (None Detect) Ur Barbiturates Screen None detected (None Detect) Ur Phencyclidine Scrn None detected (None Detect) Ur Amphetamines Screen None detected (None Detect) U Benzodiazepines Scrn None detected (None Detect) Urine Cocaine Screen None detected (None Detect) U Cannabinoids Screen Presumptive positive H (None Detect) 03/09/17 03/09/17 03/09/17 Range/Units 04:46 04:46 07:49 WBC 10.7 (3.5-10.8) 10^3/ul RBC 4.08 (4.0-5.4) 10^6/ul Hgb 11.6 L (12.0-16.0) g/dl Hct 36 (35-47) % MCV 87 (80-97) fL MCH 28 (27-31) pg MCHC 33 (31-36) g/dl RDW 16 H (10.5-15) % Plt Count 247 (150-450) 10^3/ul MPV 10 (7.4-10.4) um3 Neut % (Auto) 56.7 (38-83) % Lymph % (Auto) 31.4 (25-47) % [place]y % (Auto) 8.7 (1-9) % Eos % (Auto) 2.6 (0-6) % Baso % (Auto) 0.6 (0-2) % Absolute Neuts (auto) 6.1 (1.5-7.7) 10^3/ul Absolute Lymphs (auto) 3.4 (1.0-4.8) 10^3/ul Absolute Monos (auto) 0.9 H (0-0.8) 10^3/ul Absolute Eos (auto) 0.3 (0-0.6) 10^3/ul Absolute Basos (auto) 0.1 (0-0.2) 10^3/ul Absolute Nucleated RBC 0.01 10^3/ul Nucleated RBC % 0.1 D-Dimer, Quantitative (Less Than 230) ng/mL Sodium 139 (133-145) mmol/L Potassium 3.2 L (3.5-5.0) mmol/L Chloride 108 (101-111) mmol/L Carbon Dioxide 27 (22-32) mmol/L Anion Gap 4 (2-11) mmol/L BUN 13 (6-24) mg/dL Creatinine 0.64 (0.51-0.95) mg/dL Est GFR ( Amer) 119.8 (>60) Est GFR (Non-Af Amer) 93.1 (>60) BUN/Creatinine Ratio 20.3 H (8-20) Glucose 150 H (70-100) mg/dL POC Glucose (mg/dL) 103 (74-106) mg/dL Lactic Acid (0.5-2.0) mmol/L Calcium 8.9 (8.6-10.3) mg/dL Magnesium (1.9-2.7) mg/dL Total Bilirubin (0.2-1.0) mg/dL AST (13-39) U/L ALT (7-52) U/L Alkaline Phosphatase (34-104) U/L Troponin I (<0.04) ng/mL C-Reactive Protein 5.60 H (< 5.00) mg/L Total Protein (6.4-8.9) g/dL Albumin (3.2-5.2) g/dL Globulin (2-4) g/dL Albumin/Globulin Ratio (1-3) Vitamin B12 > 1450 H (180-914) pg/mL TSH (0.34-5.60) mcIU/mL Urine Color Urine Appearance Urine pH (5-9) Ur Specific [place] (1.010-1.030) Urine Protein (Negative) Urine Ketones (Negative) Urine Blood (Negative) Urine Nitrate (Negative) Urine Bilirubin (Negative) Urine Urobilinogen (Negative) Ur Leukocyte Esterase (Negative) Urine Glucose (Negative) Urine Opiates Screen (None Detect) Ur Barbiturates Screen (None Detect) Ur Phencyclidine Scrn (None Detect) Ur Amphetamines Screen (None Detect) U Benzodiazepines Scrn (None Detect) Urine Cocaine Screen (None Detect) U Cannabinoids Screen (None Detect) Result Diagrams: 03/09/17 04:46 03/09/17 04:46 Lab Statement: Any lab studies that have been ordered have been reviewed, and results considered in the medical decision making process. - EKG 1924 Cardiac Rate: Bradycardia - 52 bpm EKG Rhythm: Sinus Bradycardia Course/Dx Course Of Treatment: Ms. Diane had a sudden syncopal episode with no warning today while sitting on the grass. Her W/U and monitoring is WNL here and she will be admitted overnight for monitoring. - Diagnoses Provider Diagnoses: Syncope - Physician Notifications Discussed Care of Patient With: He Hunter - Will admit pt [place] [facility] [place] Time Discussed With Above Provider: 20:31 - Critical Care Time Critical Care Time: 30-74 min Discharge - Discharge Plan Condition: Stable Disposition: ADMITTED TO [facility] The documentation as recorded by the Jaswinder goncalves Alok accurately reflects the service I personally performed and the decisions made by me, Sudarshan Borges MD.
[2017-03-09] MEDS: Enoxaparin(*) 40 MG/0.4 ML SYR SUBCUT SCH (21:59)
[2017-03-10] MEDS: Magnesium Oxide TAB* 400 MG PO SCH ×2 (00:06→08:05)
[2017-03-10 05:57] LABS: Hematocrit 37 % (35-47); Hemoglobin 11.8 g/dl (12.0-16.0); Mean Corpuscular HGB Conc 32 g/dl (31-36); Mean Corpuscular Hemoglobin 28 pg (27-31); Mean Corpuscular Volume 87 fL (80-97); Mean Platelet Volume 9 um3 (7.4-10.4); Red Blood Count 4.19 10^6/ul (4.0-5.4); Red Cell Distribution Width 16 % (10.5-15); White Blood Count 9.2 10^3/ul (3.5-10.8)
[2017-03-10 06:12] LABS: BUN/Creatinine Ratio 17.5 (8-20); Calcium 8.8 mg/dL (8.6-10.3); EGFR African American 136.9 (>60); EGFR Non-African American 106.4 (>60); Magnesium 2.1 mg/dL (1.9-2.7); Potassium 3.6 mmol/L (3.5-5.0)
--- NOTE | 2017-03-10 07:25 | PN ---
Subjective - Subjective Reason for Note: Progress Note History: DISCHARGE SUMMARY I reviewed her presentation with the patient and her . I also reviewed Dr. He Hunter's H and P and discussed her case with Dr. Yuly Garza. She had an episode of nausea, vomiting, followed by syncope. She also had a few bowel movements with diarrhea. She had been to a parade. Today she is feeling recovered. She has had no further nausea, vomiting or diarrhea. She is walking independently. Her telemetry shows bradycardia. Her and the patient are concerned about a 1 year history of worsening memory. This morning she is oriented place/person, Time 2016, Summer, February ? date or day. Her states this is characteristic. She repeats the same stories repeatedly. Active Problems: Active Problems Electrolyte disturbance (Acute) E87.8 Vasovagal syncope (Acute) R55 Vomiting (Acute) R11.10 Essential hypertension (Chronic) I10 Gastritis (Chronic) K29.70 Hyperlipidemia (Chronic) E78.5 Memory impairment (Chronic) R41.3 Rheumatoid arthritis (Chronic) M06.9 Type 2 diabetes mellitus with insulin therapy (Chronic) E11.9, Z79.4 Current Medications: Current Medications Amlodipine Besylate (Norvasc Tab*) 10 mg PO DAILY PENDING SALE TO [facility] Last Admin: 03/09/17 08:24 Dose: 10 mg Atenolol (Tenormin Tab*) 25 mg PO QAM PENDING SALE TO [facility] Last Admin: 03/09/17 08:24 Dose: 25 mg Cholecalciferol (Vitamin D Tab*) 1,000 units PO DAILY PENDING S[facility] TO [facility] Last Admin: 03/09/17 08:24 Dose: 1,000 units Dextrose (D50w Syringe 50 Ml*) 12.5 gm IV PUSH .FOR FS < 60 - SS PRN PRN Reason: FS < 60 Enoxaparin Sodium (Lovenox(*)) 40 mg SUBCUT Q24H PENDING SALE TO [facility] Last Admin: 03/09/17 21:59 Dose: 40 mg Fish Oil (Fish Oil (Nf)) 1,000 mg PO BID PENDING SALE TO [facility] PRN Reason: Protocol Last Admin: 03/09/17 21:46 Dose: 1,000 mg Hydroxychloroquine Sulfate (Plaquenil Tab*) 200 mg PO BID PENDING SALE TO [facility] Last Admin: 03/09/17 21:46 Dose: 200 mg Insulin Glargine (Lantus(*)) 38 units SUBCUT QAM PENDING SALE TO [facility] Last Admin: 03/09/17 08:25 Dose: 38 units Insulin Human Lispro (Humalog*) 0 units SUBCUT ACHS PENDING SALE TO [facility] PRN Reason: Protocol Last Admin: 03/09/17 21:57 Dose: 2 units Magnesium Oxide (Magox 400 Tab*) 400 mg PO Q8H PENDING SALE TO [facility] Last Admin: 03/10/17 00:06 Dose: 400 mg Prochlorperazine (Compazine Tab*) 10 mg PO Q6H PRN PRN Reason: NAUSEA Last Admin: 03/09/17 09:30 Dose: 10 mg Repaglinide (Prandin Tab*) 1 mg PO AC PENDING SALE TO [facility] Last Admin: 03/09/17 17:05 Dose: 1 mg Valsartan (Diovan Tab*) 160 mg PO DAILY PEND[facility] S[facility] Last Admin: 03/09/17 08:23 Dose: 160 mg Home Medications: Home Medications Medication Instructions Recorded Confirmed Type Atenolol TAB* [Tenormin TAB* 50 MG] 25 mg PO [facility] 04/08/13 03/08/17 History Insulin Glargine [Lantus] 38 units SUBCUT [facility] 04/08/13 03/08/17 History Amlodipine Besylate [Norvasc-] 10 mg PO DAILY 02/07/15 03/08/17 History Candesartan Cilexetil [Atacand] 32 mg PO DAILY 02/07/15 03/08/17 History Cholecalciferol [D 1000] 1,000 unit PO DAILY 03/08/17 03/08/17 History Cyanocobalamin [B12] 2,500 mcg PO DAILY 03/08/17 03/08/17 History Hydroxychloroquine TAB* [Plaquenil 200 mg PO BID 03/08/17 03/08/17 History TAB*] [place]-3 Fatty Acids [Fish Oil] 1,000 mg PO BID 03/08/17 03/08/17 History Repaglinide TAB* [Prandin TAB*] 1 mg PO AC 03/08/17 03/08/17 History Allergies: Allergies Allergy/AdvReac Type Severity Reaction Status Date / Time Penicillins Allergy Intermediate Rash Verified 01/19/17 21:28 Sulfamethoxazole Allergy Intermediate Rash Verified 01/19/17 21:28 w/Trimethoprim [From Bactrim] Sulfa Antibiotics Allergy Unknown Verified 01/19/17 21:28 Reaction Details Objective - Vital Signs Vital Signs: Vital Signs 03/09/17 03/09/17 03/09/17 10:05 13:31 16:48 Temperature 98.0 F 97.9 F Pulse Rate 56 55 65 Respiratory 16 18 Rate Blood Pressure 151/71 140/69 140/68 (mmHg) O2 Sat by Pulse 96 95 Oximetry 03/09/17 03/09/17 03/10/17 20:00 20:02 00:23 Temperature 97.9 F 97.8 F Pulse Rate 56 62 Respiratory 16 16 20 Rate Blood Pressure 141/61 141/51 (mmHg) O2 Sat by Pulse 96 98 Oximetry 03/10/17 03:10 Temperature 97.8 F Pulse Rate 56 Respiratory 20 Rate Blood Pressure 121/53 (mmHg) O2 Sat by Pulse 99 Oximetry - Intake and Output Intake and Output: Intake & Output 03/07/17 03/08/17 03/09/17 03/10/17 11:59 11:59 11:59 11:59 Intake Total 110 1864 Output Total 1500 Balance 110 364 Intake: IV Fluids 110 663 NS (0.9%) 414 potassium chloride 249 IVPB 101 potassium chloride 101 Oral 1100 Output: Urine 1500 Other: # Bowel Movements 0 # Voids 1 ADLs: Meal Record Start: 03/08/17 21: 05 Freq: DAILY@0900,1400,1800 Status: Active Document 03/09/17 09:00 [id number] (Rec: 03/09/17 17:24 [id number] [id number]) Document 03/09/17 14:00 [id number] (Rec: 03/09/17 17:26 [id number] TELE-C01) Document 03/09/17 18:00 [id number] (Rec: 03/09/17 18:46 [id number] [id number]) Intake and Output Start: 03/08/17 21: 05 Freq: DAILY@0600,1400,2200 Status: Active Document 03/08/17 22:00 [id number] (Rec: 03/08/17 22:46 [id number] TELE-C10) Document 03/09/17 06:00 [id number] (Rec: 03/09/17 06:18 [id number] TELE-C32) Document 03/09/17 14:00 [id number] (Rec: 03/09/17 17:26 [id number] TELE-C01) Document 03/09/17 14:00 [id number] (Rec: 03/09/17 17:13 [id number] TELE-C11) Document 03/09/17 21:34 [id number] (Rec: 03/09/17 21:36 [id number] TELE-C08) Document 03/10/17 06:00 [id number] (Rec: 03/10/17 06:10 [id number] TELE-C32) - Physical Exam General Physical Exam Comment: Warm and well perfused and in no distress General: No Cyanosis, No Anemia, No Jaundice, No Clubbing Eye Exam: bilateral: PERRLA, EOMI Skin: Normal: Rash Lungs and Chest: Yes: Chest Expansion Full, Chest Expansion Symetrica, Percussion Note Resonant, Vessicular Breath Sounds. No: Crackles, Wheezes Heart Rate and Rhythm: Regular JVP: Not Elevated Additional Cardiovascular: Yes: Normal Heart Sounds. No: Heart Murmur, Pedal Edema Abdominal Exam: Yes: Soft, Abdominal Tenderness - mild generalize tenderness central abdo, Bowel Sounds Present. No: Distention, Abdominal Mass, Hepatomegaly, Guarding, Rebound Tenderness - Extremities Cranial Nerves II-XII Intact: Yes Limbs: Normal Power, Normal Tone, Normal Coordination - Neuro Orientation: Other - Place/person - time - 2016, Summer, February Psychiatric: Normal Speech: Normal Results - Results Lab Results: Laboratory Results - last 24 hr 03/09/17 03/09/17 03/09/17 11:50 16:45 20:35 WBC RBC Hgb Hct MCV MCH MCHC RDW Plt Count MPV Neut % (Auto) Lymph % (Auto) [place] % (Auto) Eos % (Auto) Baso % (Auto) Absolute Neuts (auto) Absolute Lymphs (auto) Absolute Monos (auto) Absolute Eos (auto) Absolute Basos (auto) Absolute Nucleated RBC Nucleated RBC % Sodium Potassium Chloride Carbon Dioxide Anion Gap BUN Creatinine Est GFR ( Amer) Est GFR (Non-Af Amer) BUN/Creatinine Ratio Glucose POC Glucose (mg/dL) 104 107 H 172 H Calcium Magnesium 03/10/17 03/10/17 05:16 05:16 WBC 9.2 RBC 4.19 Hgb 11.8 L Hct 37 MCV 87 MCH 28 MCHC 32 RDW 16 H Plt Count 245 MPV 9 Neut % (Auto) 50.2 Lymph % (Auto) 36.6 [place] % (Auto) 8.4 Eos % (Auto) 4.0 Baso % (Auto) 0.8 Absolute Neuts (auto) 4.6 Absolute Lymphs (auto) 3.4 Absolute Monos (auto) 0.8 Absolute Eos (auto) 0.4 Absolute Basos (auto) 0.1 Absolute Nucleated RBC 0 Nucleated RBC % 0 Sodium 140 Potassium 3.6 Chloride 110 Carbon Dioxide 25 Anion Gap 5 BUN 10 Creatinine 0.57 Est GFR ( Amer) 136.9 Est GFR (Non-Af Amer) 106.4 BUN/Creatinine Ratio 17.5 Glucose 92 POC Glucose (mg/dL) Calcium 8.8 Magnesium 2.1 Assessment - Problem List Assessment: Patient Problems Electrolyte disturbance (Acute) Vasovagal syncope (Acute) Vomiting (Acute) Essential hypertension (Chronic) Gastritis (Chronic) Hyperlipidemia (Chronic) Memory impairment (Chronic) Rheumatoid arthritis (Chronic) Type 2 diabetes mellitus with insulin therapy (Chronic) Plan: Electrolyte disturbance (Acute)Vasovagal syncope (Acute)Vomiting (Acute) I think she developed acute food poisoning at the [facility]. This was associated with nausea and vomiting. She had a vasovagal episode. Her telemetry, BP, electrolytes are all now normal. She has had no indication of hypoglycemia being part of this presentation. Other possibilities include seizure. I will check an EEG as an outpatient. Essential hypertension (Chronic) I will stop atenolol as she has a bradycardia and atenolol shows no use as an antihypertensive agent. This is a heritage medication Gastritis (Chronic) She had an episode February 25. It was associated with severe epigastric pain. I will continue her on ranitidine for 1 month or so Hyperlipidemia (Chronic) continue current Rx Memory impairment (Chronic) This is a chronic, but worsening problem. Her is very concerned. I will obtain an MRI brain with contrast as an outpatient Rheumatoid arthritis (Chronic) ongoing secondary diagnosis Type 2 diabetes mellitus with insulin therapy (Chronic) controlled I explained the above with the patient and her and they agree with the plan Action items as an outpatient: MRI brain and EEG.
[2017-03-10 08:04] VITALS: BP 156/71
[2017-03-10] MEDS: Repaglinide TAB* 1 MG PO SCH (08:04)
[2017-03-10] MEDS: amLODIPine TAB* 5 MG PO SCH (08:05)
[2017-03-10] MEDS: Hydroxychloroquine TAB* 200 MG PO SCH (08:06)
[2017-03-10] MEDS: Valsartan TAB* 160 MG PO SCH (08:06)
[2017-03-10] MEDS: CMCS:OMEGA-3 FATTY ACIDS (NF) 1,000 MG CAP PO SCH (08:06)
[2017-03-10] MEDS: Insulin GLARGINE(*) 1 UNITS UNIT SUBCUT SCH (08:06)
[2017-03-10] MEDS: Cholecalciferol TAB* 1000 UNITS PO SCH (08:06)
[2017-03-10] MEDS: Atenolol TAB* 25 MG PO SCH (08:07)
[2017-03-10] MEDS: Insulin LISPRO* 1 UNITS UNIT SUBCUT SCH (08:09)
[2017-03-10] MEDS ORDERED: Famotidine TAB* 20 MG PO SCH (09:00)
== END 2017-03-10 10:30 | disposition home or self-care (01) | DRG 425 ==
LOC: ED 18:50 → MEDTELE 20:40 → OBSVTOIN 03-09 09:00
PROVIDERS: ADMIT Internal Medicine; ATTEND Internal Medicine
DX: E87.6 Hypokalemia (principal); E83.42 Hypomagnesemia; I10 Essential (primary) hypertension; T62.91XA Toxic effect of unspecified noxious substance eaten as food, accidental (unintentional), initial encounter; Y92.009 Unspecified place in unspecified non-institutional (private) residence as the place of occurrence of the external cause; X58.XXXA Exposure to other specified factors, initial encounter; M06.9 Rheumatoid arthritis, unspecified; E11.9 Type 2 diabetes mellitus without complications; E78.5 Hyperlipidemia, unspecified; E53.8 Deficiency of other specified B group vitamins; K29.50 Unspecified chronic gastritis without bleeding; Z79.4 Long term (current) use of insulin; Z79.899 Other long term (current) drug therapy; Z88.1 Allergy status to other antibiotic agents; Z88.0 Allergy status to penicillin; Z88.2 Allergy status to sulfonamides; Z82.49 Family history of ischemic heart disease and other diseases of the circulatory system; Z83.3 Family history of diabetes mellitus
CPT/HCPCS: 36415; 71010; 80048; 80053; 80307; 81003; 82607; 83605; 83735; 83921; 84443; 84484; 85025; 85379; 86140; 93005; 93306; A9270-GY; J1650; J3480; Q0164

== ENCOUNTER 2018-05-26 06:16 | Day surgery (SDC) | payer MEDICARE, BC ==
[~2018-05-26 06:16] MED LIST: Buffered Lidocaine 0.9% SYRIN* 5 ML/SYR SYRINGE INTRADERM ONE; DiMENhydriNATE IV* 50 MG/ML VIAL IV PUSH PRN; Famotidine IV* 10 MG/ML 2 ML (20 mg) IV ONE; Naloxone* 0.4 MG/ML 1 ML VIAL IV PRN; Ondansetron TAB* 4 MG PO ONE; PROCHLORPERAZINE INJ 5 MG/ML 2 ML VIAL IV PRN; oxyCODONE/Acetamin 5/325 MG* TAB PO PRN
[2018-05-26] MEDS ORDERED: Lidocain 1% EPI 1:100,000 * 30 ML MDV ONE (06:56)
[2018-05-26] MEDS ORDERED: Bacitracin IV* 50,000 UNITS INJ ONE (06:57)
[2018-05-26] MEDS ORDERED: Famotidine IV* 10 MG/ML 2 ML (20 mg) ONE (07:03)
[2018-05-26] MEDS ORDERED: Ondansetron ODT TAB* 4 MG ONE (07:03)
[2018-05-26] MEDS ORDERED: Clindamycin 900 MG/D5W BAG(*) 900 MG/50 ML BAG IVPB ONE (07:04)
[2018-05-26] MEDS ORDERED: Lidocaine 1% INJ* 10 MG/ML 30 ML SDV ONE (07:09)
[2018-05-26] MEDS ORDERED: fentaNYL* 50 MCG/ML 2 ML VIAL (100 MCG VIAL) ONE (07:16)
[2018-05-26] MEDS ORDERED: Midazolam* 1 MG/ML 5 ML VIAL (5 MG) ONE (07:16)
[2018-05-26] MEDS ORDERED: hydrALAZINE IV* 20 MG/ML VIAL ONE (08:00)
[2018-05-26] MEDS ORDERED: Clindamycin 900 MG IVPREMIX(* 900 MG/50 ML SDV IV ONE (08:00)
[2018-05-26] MEDS ORDERED: Labetalol IV* 5 MG/ML 20 ML VIAL ONE (08:00)
[2018-05-26] MEDS ORDERED: Lidocaine 2% PF * 5 ML VIAL ONE (08:00)
[2018-05-26] MEDS ORDERED: Insulin REGULAR(*) 1 UNITS UNIT ONE (09:43)
[2018-05-26 10:05] VITALS: BP 157/96
--- NOTE | 2018-06-01 08:01 | OP ---
DATE OF OPERATION: 05/26/18 - SDS DATE OF : 54 SURGEON: Sorin Thakur MD ANESTHESIA: Local with monitored anesthesia care. PRE-OP DIAGNOSIS: Right carpal tunnel syndrome. POST-OP DIAGNOSIS: Right carpal tunnel syndrome. OPERATIVE PROCEDURE: Right carpal tunnel release. DESCRIPTION OF PROCEDURE: After satisfactory IV sedation had been obtained, the right upper extremity was clipped, prepped and draped in a sterile manner for carpal tunnel release. A skin incision was outlined beginning at the transverse carpal crease and extending into the palm approximately 3 cm. At the transverse carpal crease, this was turned in an ulnar direction for 1 cm and then turned approximately for an additional centimeter making a Z-shaped incision. This incision was infiltrated with 1% Xylocaine plain after which it was turned down sharply to the subcutaneous tissues. The palmaris brevis muscle was divided identification of the transverse carpal ligament. The transverse carpal ligament was then divided sharply utilizing a 15-blade scalpel. After an open wound was made in the transverse carpal ligament, a Helix 4 dissector was used to protect the nerve and sharp dissection carried out on top of the Helix 4 dissector until palmar fat was encountered. The proximal portion of the transverse carpal ligament was then dissected free and divided utilizing Metzenbaum scissors. Hemostasis was obtained with a bipolar forceps. After assuring adequate hemostasis, the wound was thoroughly irrigated after which the subcutaneous tissues were reapproximated with 3-0 Vicryl suture and the skin closed in a running locking nylon suture. The estimated blood loss was less than 10 cc. The final sponge, padding, and needle counts were correct. The patient was taken to the recovery room in stable condition. [id number]/[facility] #: [id number] MTDD
== END 2018-05-26 10:16 | disposition home or self-care (01) ==
LOC: OR 06:16
PROVIDERS: ATTEND Neurological Surgery
DX: G56.01 Carpal tunnel syndrome, right upper limb (principal); I10 Essential (primary) hypertension; E11.9 Type 2 diabetes mellitus without complications; M06.9 Rheumatoid arthritis, unspecified; Z79.4 Long term (current) use of insulin
CPT/HCPCS: 36415; 86803; A9270-GY; J0360; J2250; J3010

== ENCOUNTER 2018-06-04 10:32 | Emergency (ER) | payer BC, MEDICARE ==
--- OUTSIDE RECORDS SUMMARY | 2018-06-04 10:39 | XMS REPORT ---
:1950 External Reference #:[id number] Author Organization [facility] Address [address] [place] [address] Phone [phone] Care Team Providers Name Role Phone Nikita Fairbanks MD Primary Care Physician Unavailable Payers Type Date Identification Numbers Payment Provider Subscriber Health Maintenance Policy Number: Medicare Blue o Stacia Winn Mancuso Organization (O) [id number] PayID: [id number] [address] [address] [place] [address] Medigap Part B Effective: 11/24/2011 Policy Number: Jeniffer Corky Mancuso [id number] Expires: 04/24/2018 PayID: [id number] [address] [address] [place] [address] Medigap Part B Expires: 04/24/2018 Policy Number: Medicare Staciamarilou Mancuso [id number] PayID: [id number] [address] [place] [address] Problems Date Description Provider Status Onset: 11/02/2012 Rheumatoid arthritis Kwasi Lind M.D. Active Onset: 11/02/2012 Immunological Findings Nonspec Other Kwasi Lind M.D. 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 Active Encounter Onset: 02/09/2013 Inflammatory spondylopathy Kwasi Lind M.D. Active Onset: 05/05/2013 Osteomyelitis of lower leg Kwasi Lind M.D. Active Onset: 04/19/2015 Taking medication JOAO Marx Active Onset: 05/09/2017 Amnesia Fredrick Tijerina M.D. Active Onset: 05/09/2017 Altered mental status Fredrick Tijerina M.D. Active Onset: 04/23/2018 Carpal tunnel syndrome of right wrist Fredrick Tijerina M.D. Active Onset: 02/09/2018 Skin sensation disturbance Fredrick Tijerina M.D. Active Onset: 10/30/2017 Hypersomnia Fredrick Tijerina M.D. Active Onset: 10/30/2017 Chronic fatigue syndrome Fredrick Tijerina M.D. Active Onset: 10/30/2017 Minimal cognitive impairment Fredrick Tijerina M.D. Active Family History Date Family Member(s) Problem(s) Comments Father Hypertension Father Coronary Artery Disease (CAD) Mother Arthritis Siblings 4 Social History Type Date Description Comments Marital Status Lives With Occupation Currently Working Has [employer] ETOH Use Rarely consumes alcohol Smoking Patient has never smoked Daily Caffeine Consumes on average 1 cup of hot tea per day Exercise Type/Frequency Exercises regularly Allergies, Adverse Reactions, Alerts Date Description Reaction Status Severity Comments 11/02/2012 Sulfa Antibiotics active 11/02/2012 Bactrim active 01/31/2016 Penicillin active 01/31/2016 Clonazepam active Medications Medication Date Status Form Strength Qnty SIG Indications Ordering Provider Rivastigmine 04/23 Active Capsules 3mg 180ca 1 by asha ps mouth Thea Tijerina twice a day Memantine HCL 01/09 Active Tablets 10mg 60tab one s tablet Thea Tijerina twice a day Hydroxychloroquin 10/27 Active Tablets 200mg 180ta Take One bs Tablet By Thea Riley Mouth Two Times A Day Sertraline HCL 08/14 Active Tablets 50mg 30tab 1 by s mouth Thea Riley bid every day D3 High Potency 08/14 Active Capsules 2000Unit 90cap take one s capsule/t Thea Riley ablet daily by mouth Voltaren 08/14 Active Gel 1% 200un apply 2 its grams Thea Riley twice daily as needed for pain to the hands Insulin 07/28 Active Misc 28G X 12uni sc weekly Kwasi Syringe/1ML/28G X 08/26" 1 ML ts for mtx Endo, M.D. 08/26" as directed Amlodipine Active Tablets 10mg 1 by Unknown Besylate /0000 mouth every day Repaglinide Active Tablets 1mg 1 by Unknown /0000 mouth before all meals Candesartan Active Tablets 32mg 1 by Unknown Cilexetil /0000 mouth every day Fish Oil Active Capsules 1000mg bid by Unknown /0000 mouth every day B Complete Active Tablets once a Unknown /0000 day Gabapentin Active Capsules 300mg 1 by Martín, /0000 mouth two JOAO Nuñez times a day.. Basaglar Kwikpen Active Solution 100Unit/M As Nikita Fairbanks, / Pen-Injec L directed MD cowan Rivastigmine 02/09 Hx Capsules 1.5mg 60cap take one G31.84 Christopher Tartrate s capsule Thea Tijerina - by mouth 04/23 twice a day Donepezil HCL 10/30 Hx Tablets 10mg 30tab take 1 G31.84 Christopher s pill by Thea Tijerina - mouth in 01/07 in the morning Hydroxxchloroquin 10/27 Hx 200mg one tab by mouth Thea Riley - twice a Enbrel 04/22 Hx Soln 50mg/ml 4unit 50mg sq M05.79 Prefill s every Thea Riley - Syringe week 07/01 Cyanocobalamin 02/06 Hx Tablets 2500mcg 60tab take one Sub s capsule/chapo Riley M.D. - ablet 05/08 daily 2017 sublingua l Plaquenil 01/30 Hx Tablets 200mg 180ta Take one Z79.899 bs capsule/chapo Riley M.D. - ablet by 05/08 twice daily Methotrexate 07/21 Hx Solution 25mg/ml 4cc 0.4cc/wee 714.0 Kwasi Sodium roger Lind M.D. - 01/19 Methotrexate 06/15 Hx Tablets 2.5mg 3 tbs po 714.0 Zsofia /2012 JOAO Mercer - week 07/21 Voltaren 06/15 Hx Gel 1% 1tube apply to M05.79 Zsofi s affected Ke [employer] - area bid, 02/12 prn Methotrexate 12/14 Hx Tablets 2.5mg 20tab 4 tabs 1x 714.0 s per week Thea Lind - 06/15 Folic Acid 12/14 Hx Tablets 1mg 90tab 1 po qd 714.0 matt Lind M.D. - 01/19 Atenolol 11/02 Hx Tablets 50mg 30tab 1/2 po s qd Ordering - Provider 05/08 Atacand 11/02 Hx Tablets 32mg 90tab 1 po qd s Ordering - Provider 01/30 Diltiazem CD 11/02 Hx Caps ER 240mg 90cap 1 po qd 24HR s Ordering - Provider 01/30 Vitamin D 11/02 Hx Tablets 2000Unit 1 tab by mouth Ordering - daily Provider 11/12 Lantus 11/02 Hx Solution 100Unit/M 6Vial sliding L s scale Ordering - Provider 01/30 Diclofenac Sodium 11/02 Hx Tablets 75mg 60tab 1 tab by 714.[address] matt Lind M.D. - twice a Sertraline HCL Hx Tablets 50mg 1 by Unknown /0000 mouth - every day 05/08 B12 Fast Dissolve Hx Tablets 5000mcg sl daily / Dispers - 10/29 Famotidine Hx Tablets 10mg one by Unknown /0000 mouth - twice a Lantus Hx Solution 38-40Unit inject Unknown /0000 s 38-40 - units 04/22 subQ /2017 every day in in the morning Hydroxxchloroquin Hx 200mg one tab Sarkis e /0000 by mouth Thea Riley - twice a Vital Signs Date Vital Result Comment 05/11/2018 Height 68 inches 5'8" Weight 200.00 lb BP Systolic Sitting 126 mmHg BP Diastolic Sitting 78 mmHg Pain Level 1 BMI (Body Mass Index) 30.4 kg/m2 04/23/2018 Height 68 inches 5'8" Weight 200.00 lb Heart Rate 76 /min BP Systolic 128 mmHg BP Diastolic 74 mmHg Respiratory Rate 16 /min BMI (Body Mass Index) 30.4 kg/m2 02/19/2018 Height 68 inches 5'8" Weight 202.38 lb Heart Rate 90 /min BP Systolic Sitting 150 mmHg BP Diastolic Sitting 72 mmHg Respiratory Rate 14 /min Pain Level 1 BMI (Body Mass Index) 30.8 kg/m2 02/09/2018 Height 68 inches 5'8" Weight 192.00 lb Heart Rate 80 /min BP Systolic Sitting 124 mmHg BP Diastolic Sitting 68 mmHg Respiratory Rate 16 /min BMI (Body Mass Index) 29.2 kg/m2 01/09/2018 Height 68 inches 5'8" Weight 197.00 lb Heart Rate 74 /min BP Systolic 128 mmHg BP Diastolic 72 mmHg Respiratory Rate 16 /min BMI (Body Mass Index) 30.0 kg/m2 10/30/2017 Height 68 inches 5'8" Weight 202.50 lb Heart Rate 84 /min BP Systolic 136 mmHg BP Diastolic 98 mmHg BMI (Body Mass Index) 30.8 kg/m2 08/14/2017 Height 68 inches 5'8" Weight 198.00 lb Heart Rate 68 /min BP Systolic Sitting 181 mmHg BP Diastolic Sitting 75 mmHg Respiratory Rate 14 /min Pain Level 3 BMI (Body Mass Index) 30.1 kg/m2 05/23/2017 Height 68 inches 5'8" Weight 190.00 lb Heart Rate 84 /min BP Systolic Sitting 140 mmHg BP Diastolic Sitting 78 mmHg Respiratory Rate 16 /min BMI (Body Mass Index) 28.9 kg/m2 05/09/2017 Height 68 inches 5'8" Weight 194.00 lb Heart Rate 84 /min BP Systolic 112 mmHg BP Diastolic 78 mmHg BMI (Body Mass Index) 29.5 kg/m2 02/12/2017 Height 68 inches 5'8" Weight 205.00 lb Heart Rate 58 /min BP Systolic Sitting 150 mmHg BP Diastolic Sitting 70 mmHg Respiratory Rate 14 /min Pain Level 6 BMI (Body Mass Index) 31.2 kg/m2 11/12/2016 Height 68 inches 5'8" Weight 209.00 lb Heart Rate 55 /min BP Systolic Sitting 142 mmHg BP Diastolic Sitting 80 mmHg Respiratory Rate 14 /min Body Temperature 97.2 F Pain Level 3 BMI (Body Mass Index) 31.8 kg/m2 08/12/2016 Height 68 inches 5'8" Weight 205.38 lb Heart Rate 68 /min BP Systolic Sitting 140 mmHg BP Diastolic Sitting 70 mmHg Respiratory Rate 14 /min Body Temperature 96.1 F Pain Level 2 BMI (Body Mass Index) 31.2 kg/m2 05/13/2016 Height 68 inches 5'8" Weight 203.00 lb Heart Rate 72 /min BP Systolic Sitting 130 mmHg BP Diastolic Sitting 74 mmHg Respiratory Rate 14 /min Body Temperature 96.4 F Pain Level 3 BMI (Body Mass Index) 30.9 kg/m2 04/22/2016 Height 68 inches 5'8" Weight 202.38 lb Heart Rate 64 /min BP Systolic Sitting 134 mmHg BP Diastolic Sitting 70 mmHg Respiratory Rate 14 /min Body Temperature 97.1 F Pain Level 3 BMI (Body Mass Index) 30.8 kg/m2 02/21/2016 Height 68 inches 5'8" Weight 203.50 lb Heart Rate 80 /min BP Systolic Sitting 130 mmHg BP Diastolic Sitting 70 mmHg Respiratory Rate 14 /min Body Temperature 96.3 F Pain Level 0 BMI (Body Mass Index) 30.9 kg/m2 01/31/2016 Height 68 inches 5'8" Weight 206.00 lb Heart Rate 60 /min BP Systolic Sitting 140 mmHg BP Diastolic Sitting 70 mmHg Respiratory Rate 14 /min Body Temperature 96.5 F Pain Level 2 BMI (Body Mass Index) 31.3 kg/m2 07/21/2013 Height 68 inches 5'8" Weight 209.00 lb Heart Rate 82 /min BP Systolic Sitting 146 mmHg BP Diastolic Sitting 84 mmHg BMI (Body Mass Index) 31.8 kg/m2 06/15/2013 Height 68 inches 5'8" Weight 212.25 lb Heart Rate 80 /min BP Systolic Sitting 156 mmHg BP Diastolic Sitting 88 mmHg BMI (Body Mass Index) 32.3 kg/m2 05/05/2013 Height 68 inches 5'8" Weight 215.00 lb Heart Rate 84 /min BP Systolic Sitting 130 mmHg BP Diastolic Sitting 70 mmHg BMI (Body Mass Index) 32.7 kg/m2 02/09/2013 Height 68 inches 5'8" Weight 211.00 lb Heart Rate 80 /min BP Systolic Sitting 132 mmHg BP Diastolic Sitting 70 mmHg BMI (Body Mass Index) 32.1 kg/m2 12/14/2012 Height 68 inches 5'8" Weight 207.00 lb Heart Rate 77 /min BP Systolic Sitting 136 mmHg BP Diastolic Sitting 72 mmHg BMI (Body Mass Index) 31.5 kg/m2 11/02/2012 Height 68 inches 5'8" Weight 213.00 lb Heart Rate 82 /min BP Systolic Sitting 127 mmHg BP Diastolic Sitting 71 mmHg BMI (Body Mass Index) 32.4 kg/m2 Results Test Date Test Result H/L Range Note Comp Metabolic Panel 01/06/2018 Sodium 139 mmol/L 139-145 Potassium 4.1 mmol/L 3.5-5.0 Chloride 109 mmol/L 101-111 Co2 Carbon Dioxide 22 mmol/L 22-32 Anion Gap 8 mmol/L 2-11 Glucose 188 mg/dL High 70-100 Blood Urea Nitrogen 25 mg/dL High 6-24 Creatinine 0.68 mg/dL 0.51-0.95 BUN/Creatinine Ratio 36.8 High 8-20 Calcium 9.6 mg/dL 8.6-10.3 Total Protein 6.3 g/dL Low 6.4-8.9 Albumin 3.9 g/dL 3.2-5.2 Globulin 2.4 g/dL 2-4 Albumin/Globulin Ratio 1.6 1-3 Total Bilirubin 0.30 mg/dL 0.2-1.0 Alkaline Phosphatase 75 U/L 34-104 Alt 24 U/L 7-52 Ast 25 U/L 13-39 Egfr Non- 86.8 >60 Egfr 111.7 >60 1 Laboratory test finding 01/06/2018 Vitamin B12 695 pg/mL 180-914 2 Folic Acid (Folate) 8.47 ng/mL >3.99 3 C Reactive Protein 6.50 mg/L High < 5.00 4 TSH (Thyroid Stim Horm) 3.83 mcIU/mL 0.34-5.60 5 Free T4 (Free Thyroxine) 0.77 ng/dL 0.61-1.12 6 Laboratory test finding 08/08/2017 C Reactive Protein 8.18 mg/L High < 5.00 7 Erythrocyte Sed Rate 29 mm/Hr 0-40 8 CBC Auto Diff 08/08/2017 White Blood Count 6.5 10^3/uL 3.5-10.8 Red Blood Count 4.40 10^6/uL 4.0-5.4 Hemoglobin 12.3 g/dL 12.0-16.0 Hematocrit 37 % 35-47 Mean Corpuscular Volume 84 fL 80-97 Mean Corpuscular Hemoglobin 28 pg 27-31 Mean Corpuscular HGB Conc 33 g/dL 31-36 Red Cell Distribution Width 16 % High 10.5-15 Platelet Count 278 10^3/uL 150-450 Mean Platelet Volume 9 um3 7.4-10.4 Abs Neutrophils 3.4 10^3/uL 1.5-7.7 Abs Lymphocytes 1.8 10^3/uL 1.0-4.8 Abs Monocytes 0.8 10^3/uL 0-0.8 Abs Eosinophils 0.3 10^3/uL 0-0.6 Abs Basophils 0.1 10^3/uL 0-0.2 Abs Nucleated RBC 0 10^3/uL Granulocyte % 53.3 % 38-83 Lymphocyte % 28.4 % 25-47 Monocyte % 12.9 % High 1-9 Eosinophil % 4.5 % 0-6 Basophil % 0.9 % 0-2 Nucleated Red Blood Cells % 0 Comp Metabolic Panel 08/08/2017 Sodium 137 mmol/L 133-145 Potassium 4.3 mmol/L 3.5-5.0 Chloride 108 mmol/L 101-111 Co2 Carbon Dioxide 25 mmol/L 22-32 Anion Gap 4 mmol/L 2-11 Glucose 167 mg/dL High 70-100 Blood Urea Nitrogen 22 mg/dL 6-24 Creatinine 0.69 mg/dL 0.51-0.95 BUN/Creatinine Ratio 31.9 High 8-20 Calcium 9.5 mg/dL 8.6-10.3 Total Protein 6.4 g/dL 6.4-8.9 Albumin 4.0 g/dL 3.2-5.2 Globulin 2.4 g/dL 2-4 Albumin/Globulin Ratio 1.7 1-3 Total Bilirubin 0.30 mg/dL 0.2-1.0 Alkaline Phosphatase 74 U/L 34-104 Alt 14 U/L 7-52 Ast 17 U/L 13-39 Egfr Non- 85.4 >60 Egfr 109.8 >60 9 Laboratory test finding 02/10/2017 Erythrocyte Sed Rate 26 mm/Hr 0-40 10 C Reactive Protein 8.96 mg/L High < 5.00 11 CBC Auto Diff 02/10/2017 White Blood Count 9.1 10^3/uL 3.5-10.8 Red Blood Count 4.63 10^6/uL 4.0-5.4 Hemoglobin 12.6 g/dL 12.0-16.0 Hematocrit 39 % 35-47 Mean Corpuscular Volume 83 fL 80-97 Mean Corpuscular Hemoglobin 27 pg 27-31 Mean Corpuscular HGB Conc 33 g/dL 31-36 Red Cell Distribution Width 15 % 10.5-15 Platelet Count 262 10^3/uL 150-450 Mean Platelet Volume 10 um3 7.4-10.4 Abs Neutrophils 5.2 10^3/uL 1.5-7.7 Abs Lymphocytes 2.7 10^3/uL 1.0-4.8 Abs Monocytes 0.7 10^3/uL 0-0.8 Abs Eosinophils 0.4 10^3/uL 0-0.6 Abs Basophils 0.1 10^3/uL 0-0.2 Abs Nucleated RBC 0 10^3/uL Granulocyte % 57.1 % 38-83 Lymphocyte % 29.9 % 25-47 Monocyte % 7.8 % 1-9 Eosinophil % 4.5 % 0-6 Basophil % 0.7 % 0-2 Nucleated Red Blood Cells % 0 Comp Metabolic Panel 02/10/2017 Sodium 138 mmol/L 133-145 Potassium 3.9 mmol/L 3.5-5.0 Chloride 108 mmol/L 101-111 Co2 Carbon Dioxide 26 mmol/L 22-32 Anion Gap 4 mmol/L 2-11 Glucose 162 mg/dL High 70-100 Blood Urea Nitrogen 13 mg/dL 6-24 Creatinine 0.63 mg/dL 0.51-0.95 BUN/Creatinine Ratio 20.6 High 8-20 Calcium 9.2 mg/dL 8.6-10.3 Total Protein 6.3 g/dL Low 6.4-8.9 Albumin 3.8 g/dL 3.2-5.2 Globulin 2.5 g/dL 2-4 Albumin/Globulin Ratio 1.5 1-3 Total Bilirubin 0.50 mg/dL 0.2-1.0 Alkaline Phosphatase 66 U/L 34-104 Alt 10 U/L 7-52 Ast 12 U/L Low 13-39 Egfr Non- 94.8 >60 Egfr 122.0 >60 12 Laboratory test finding 08/29/2016 C Reactive Protein 12.85 mg/L High < 5.00 13 Erythrocyte Sed Rate 27 mm/Hr 0-30 14 CBC Auto Diff 08/29/2016 White Blood Count 10.4 10^3/uL 3.5-10.8 Red Blood Count 4.40 10^6/uL 4.0-5.4 Hemoglobin 12.6 g/dL 12.0-16.0 Hematocrit 38 % 35-47 Mean Corpuscular Volume 86 fL 80-97 Mean Corpuscular Hemoglobin 29 pg 27-31 Mean Corpuscular HGB Conc 33 g/dL 31-36 Red Cell Distribution Width 14 % 10.5-15 Platelet Count 259 10^3/uL 150-450 Mean Platelet Volume 9 um3 7.4-10.4 Abs Neutrophils 6.9 10^3/uL 1.5-7.7 Abs Lymphocytes 2.3 10^3/uL 1.0-4.8 Abs Monocytes 0.9 10^3/uL High 0-0.8 Abs Eosinophils 0.2 10^3/uL 0-0.6 Abs Basophils 0.1 10^3/uL 0-0.2 Abs Nucleated RBC 0 10^3/uL Granulocyte % 65.7 % 38-83 Lymphocyte % 22.5 % Low 25-47 Monocyte % 9.1 % High 1-9 Eosinophil % 2.1 % 0-6 Basophil % 0.6 % 0-2 Nucleated Red Blood Cells % 0 Quantiferon Gold TB 04/22/2016 M tuberculosis by Quantiferon Negative Negative 15 TB Ag minus Nil Result 0 IU/mL TB Mitogen minus Nil Result > 10.00 IU/mL TB Nil Result 0.02 IU/mL 16 Laboratory test finding 02/01/2016 C Reactive Protein 10.54 mg/L High < 5.00 17 Erythrocyte Sed Rate 35 mm/Hr High 0-30 18 Rheumatoid Factor 16 IU/mL <15 19 Cyclic Citrullinated Pep Igg 75.0 U 20 CBC Auto Diff 02/01/2016 White Blood Count 8.6 10^3/uL 3.5-10.8 Red Blood Count 4.70 10^6/uL 4.0-5.4 Hemoglobin 13.0 g/dL 12.0-16.0 Hematocrit 40 % 35-47 Mean Corpuscular Volume 84 fL 80-97 Mean Corpuscular Hemoglobin 28 pg 27-31 Mean Corpuscular HGB Conc 33 g/dL 31-36 Red Cell Distribution Width 16 % High 10.5-15 Platelet Count 250 10^3/uL 150-450 Mean Platelet Volume 9 um3 7.4-10.4 Abs Neutrophils 5.6 10^3/uL 1.5-7.7 Abs Lymphocytes 2.1 10^3/uL 1.0-4.8 Abs Monocytes 0.7 10^3/uL 0-0.8 Abs Eosinophils 0.1 10^3/uL 0-0.6 Abs Basophils 0 10^3/uL 0-0.2 Abs Nucleated RBC 0.01 10^3/uL Granulocyte % 65.3 % 38-83 Lymphocyte % 24.8 % Low 25-47 Monocyte % 8.0 % 1-9 Eosinophil % 1.4 % 0-6 Basophil % 0.5 % 0-2 Nucleated Red Blood Cells % 0.1 Comp Metabolic Panel 02/01/2016 Sodium 138 mmol/L 133-145 Potassium 3.9 mmol/L 3.5-5.0 Chloride 107 mmol/L 101-111 Co2 Carbon Dioxide 25 mmol/L 22-32 Anion Gap 6 mmol/L 2-11 Glucose 178 mg/dL High 70-100 Blood Urea Nitrogen 17 mg/dL 6-24 Creatinine 0.61 mg/dL 0.51-0.95 BUN/Creatinine Ratio 27.9 High 8-20 Calcium 9.5 mg/dL 8.6-10.3 Total Protein 6.6 g/dL 6.4-8.9 Albumin 3.9 g/dL 3.2-5.2 Globulin 2.7 g/dL 2-4 Albumin/Globulin Ratio 1.4 1-3 Total Bilirubin 0.40 mg/dL 0.2-1.0 Alkaline Phosphatase 85 U/L 34-104 Alt 10 U/L 7-52 Ast 11 U/L Low 13-39 Egfr Non- 99.1 >60 Egfr 127.4 >60 21 Laboratory test finding 02/01/2016 Creatine Kinase(CK) 35 U/L 10-223 22 TSH (Thyroid Stim Horm) 1.74 ?IU/mL 0.34-5.60 23 Vitamin B12 233 pg/mL 180-914 24 Vitamin D 1,25 And Vitamin 02/01/2016 Vitamin D Total 25(Oh) 19.0 ng/mL Low 30-50 25 D,2 Vitamin D, 1,25 Dihydroxy 88 pg/mL 18-78 26 CBC Auto Diff 04/11/2015 White Blood Count 8.6 10^3/uL 4.8-10.8 Red Blood Count 4.79 10^6/uL 4.0-5.4 Hemoglobin 13.8 g/dL 12.0-16.0 Hematocrit 42 % 35-47 Mean Corpuscular Volume 88 fL 80-97 Mean Corpuscular Hemoglobin 29 pg 27-31 Mean Corpuscular HGB Conc 33 g/dL 31-36 Red Cell Distribution Width 15 % 10.5-15 Platelet Count 232 10^3/uL 150-450 Mean Platelet Volume 9 um3 7.4-10.4 Abs Neutrophils 5.3 10^3/uL 1.5-7.7 Abs Lymphocytes 2.4 10^3/uL 1.0-4.8 Abs Monocytes 0.6 10^3/uL 0-0.8 Abs Eosinophils 0.2 10^3/uL 0-0.6 Abs Basophils 0.1 10^3/uL 0-0.2 Abs Nucleated RBC 0.01 10^3/uL Granulocyte % 61.1 % 38-83 Lymphocyte % 28.5 % 25-47 Monocyte % 7.5 % 1-9 Eosinophil % 1.8 % 0-6 Basophil % 1.1 % 0-2 Nucleated Red Blood Cells % 0.1 Laboratory test finding 04/11/2015 C Reactive Protein 9.02 mg/L High < 5.00 27 Erythrocyte Sed Rate 17 mm/Hr 0-30 28 Comp Metabolic Panel 04/11/2015 Sodium 135 mmol/L 133-145 Potassium 4.4 mmol/L 3.5-5.0 Chloride 104 mmol/L 101-111 Co2 Carbon Dioxide 26 mmol/L 22-32 Anion Gap 5 mmol/L 2-11 Glucose 298 mg/dL High 70-100 Blood Urea Nitrogen 16 mg/dL 6-24 Creatinine 0.61 mg/dL 0.51-0.95 BUN/Creatinine Ratio 26.2 High 8-20 Calcium 9.2 mg/dL 8.6-10.3 Total Protein 6.3 g/dL Low 6.4-8.9 Albumin 3.9 g/dL 3.2-5.2 Globulin 2.4 g/dL 2-4 Albumin/Globulin Ratio 1.6 1-3 Total Bilirubin 0.40 mg/dL 0.2-1.0 Alkaline Phosphatase 131 U/L High 34-104 Alt 74 U/L High 7-52 Ast 64 U/L High 13-39 Egfr Non- 99.1 >60 Egfr 127.4 >60 29 CBC Auto Diff 02/24/2014 White Blood Count 9.8 10^3/uL 4.8-10.8 Red Blood Count 4.63 10^6/uL 4.0-5.4 Hemoglobin 13.5 g/dL 12.0-16.0 Hematocrit 40 % 35-47 Mean Corpuscular Volume 86 fL 80-97 Mean Corpuscular Hemoglobin 29 pg 27-31 Mean Corpuscular HGB Conc 34 g/dL 31-36 Red Cell Distribution Width 15 % 10.5-15 Platelet Count 250 10^3/uL 150-450 Mean Platelet Volume 10 um3 7.4-10.4 Abs Neutrophils 6.4 10^3/uL 1.5-7.7 Abs Lymphocytes 2.6 10^3/uL 1.0-4.8 Abs Monocytes 0.6 10^3/uL 0-0.8 Abs Eosinophils 0 10^3/uL 0-0.6 Abs Basophils 0 10^3/uL 0-0.2 Abs Nucleated RBC 0.01 10^3/uL Granulocyte % 65.9 % 38-83 Lymphocyte % 26.7 % 25-47 Monocyte % 6.5 % 1-9 Eosinophil % 0.5 % 0-6 Basophil % 0.4 % 0-2 Nucleated Red Blood Cells % 0.1 Laboratory test finding 02/24/2014 C Reactive Protein 7.23 mg/L High < 5.00 30 Erythrocyte Sed Rate 20 mm/Hr 0-30 Comp Metabolic Panel 02/24/2014 Sodium 140 mmol/L 133-145 Potassium 3.7 mmol/L 3.7-5.6 Chloride 108 mmol/L 101-111 Co2 Carbon Dioxide 26 mmol/L 22-32 Anion Gap 6 mmol/L 2-11 Glucose 103 mg/dL High 70-100 Blood Urea Nitrogen 12 mg/dL 6-24 Creatinine 0.60 mg/dL 0.51-0.95 BUN/Creatinine Ratio 20.0 8-20 Calcium 9.4 mg/dL 8.6-10.3 Total Protein 6.2 g/dL Low 6.4-8.9 Albumin 3.9 g/dL 3.2-5.2 Globulin 2.3 g/dL 2-4 Albumin/Globulin Ratio 1.7 1-3 Total Bilirubin 0.50 mg/dL 0.2-1.0 Alkaline Phosphatase 97 U/L 34-104 Alt 11 U/L 7-52 Ast 13 U/L 13-39 Egfr Non- 101.3 >60 Egfr 130.3 >60 31 Comp Metabolic Panel 10/06/2013 Sodium 135 mmol/L 133-145 Potassium 4.3 mmol/L 3.7-5.6 Chloride 104 mmol/L 101-111 Co2 Carbon Dioxide 24 mmol/L 22-32 Anion Gap 7 mmol/L 2-11 Glucose 328 mg/dL High 70-100 Blood Urea Nitrogen 12 mg/dL 6-24 Creatinine 0.63 mg/dL 0.51-0.95 BUN/Creatinine Ratio 19.0 8-20 Calcium 9.3 mg/dL 8.6-10.3 Total Protein 6.4 g/dL 6.4-8.9 Albumin 4.0 g/dL 3.2-5.2 Globulin 2.4 g/dL 2-4 Albumin/Globulin Ratio 1.7 1-3 Total Bilirubin 0.20 mg/dL 0.2-1.0 Alkaline Phosphatase 125 U/L High 34-104 Alt 20 U/L 7-52 Ast 19 U/L 13-39 Egfr Non- 96.1 >60 Egfr 123.6 >60 32 Lipid Profile (Trig/Chol/HDL) 10/06/2013 Triglycerides 103 mg/dL 33 Cholesterol 225 mg/dL 34 HDL Cholesterol 56.9 mg/dL 35 LDL Cholesterol 148 mg/dL 36 Lipid Profile (Trig/Chol/HDL) 06/30/2013 Triglycerides 62 mg/dL 40-200 Cholesterol 213 mg/dL High Less than 200 HDL Cholesterol 53 mg/dL 40-60 37 Cholesterol/HDL Ratio 4.0 Average 1-4.44 LDL Cholesterol 147.6 High Less Than 100 38 Liver Function Panel 06/30/2013 Total Protein 5.6 g/dL Low 6.2-8.1 Albumin 3.6 g/dL 3.2-5.2 Globulin 2.0 g/dL 2-4 Albumin/Globulin Ratio 1.8 1-3 Total Bilirubin 0.5 mg/dL 0.4-1.5 Direct Bilirubin 0.1 mg/dL 0.1-0.5 Indirect Bilirubin 0.4 mg/dL 0.3-1.0 Alkaline Phosphatase 90 U/L 30-110 Alt 18 U/L 14-54 Ast 18 U/L 12-42 Urine Microalbumin Random 06/30/2013 Ur Microalbumin (mg/L) 18.0 mg/L 39 Urine Creatinine 85.8 mg/dL Urine Microalbumin/Creatinine 21.0 Less Than 31 Comp Metabolic Panel 06/30/2013 Sodium 137 mmol/L 133-145 Potassium 4.1 mmol/L 3.5-5.0 Chloride 107 mmol/L 101-111 Co2 Carbon Dioxide 24.0 mmol/L 22-32 Anion Gap 6.0 mmol/L 2-11 Glucose 193 mg/dL High 70-100 Blood Urea Nitrogen 16 mg/dL 6-24 Creatinine 0.60 mg/dL 0.50-1.40 BUN/Creatinine Ratio 26.7 High 8-20 Calcium 9.1 mg/dL 8.1-9.9 Total Protein 6.3 g/dL 6.2-8.1 Albumin 3.6 g/dL 3.2-5.2 Globulin 2.7 g/dL 2-4 Albumin/Globulin Ratio 1.3 1-3 Total Bilirubin 0.6 mg/dL 0.4-1.5 Alkaline Phosphatase 87 U/L 30-110 Alt 17 U/L 14-54 Ast 18 U/L 12-42 Egfr Non- 101.6 >60 Egfr 130.7 >60 40 Laboratory test 06/30/2013 C Reactive Protein 1.0 mg/dL High Less than 0.5 finding CBC Auto Diff 06/30/2013 White Blood Count 7.7 10^3/uL 4.8-10.8 Red Blood Count 4.46 10^6/uL 4.0-5.4 Hemoglobin 13.7 g/dL 12.0-16.0 Hematocrit 40 % 35-47 Mean Corpuscular Volume 89 fL 80-97 Mean Corpuscular Hemoglobin 31 pg 27-31 Mean Corpuscular HGB Conc 35 g/dL 31-36 Red Cell Distribution Width 15 % 10.5-15 Platelet Count 256 10^3/uL 150-450 Mean Platelet Volume 10 um3 7.4-10.4 Abs Neutrophils 4.7 10^3/uL 1.5-7.7 Abs Lymphocytes 2.3 10^3/uL 1.0-4.8 Abs Monocytes 0.5 10^3/uL 0-0.8 Abs Eosinophils 0.1 10^3/uL 0-0.6 Abs Basophils 0.1 10^3/uL 0-0.2 Abs Nucleated RBC 0.01 10^3/uL Granulocyte % 60.8 % 38-83 Lymphocyte % 29.6 % 25-47 Monocyte % 7.1 % 1-9 Eosinophil % 1.7 % 0-6 Basophil % 0.8 % 0-2 Nucleated Red Blood Cells % 0.1 Laboratory test finding 06/30/2013 Erythrocyte Sed Rate 23 mm/Hr 0-30 CBC W/Auto Diff 06/09/2013 White Blood Count 9.0 10^3/uL 4.8-10.8 Red Blood Count 4.67 10^6/uL 4.0-5.4 Hemoglobin 14.2 g/dL 12.0-16.0 Hematocrit 42 % 35-47 Mean Corpuscular Volume 90 fL 80-97 Mean Corpuscular Hemoglobin 30 pg 27-31 Mean Corpuscular HGB Conc 34 g/dL 31-36 Red Cell Distribution Width 16 % High 10.5-15 Platelet Count 265 10^3/uL 150-450 Mean Platelet Volume 10 um3 7.4-10.4 Abs Neutrophils 5.6 10^3/uL 1.5-7.7 Abs Lymphocytes 2.6 10^3/uL 1.0-4.8 Abs Monocytes 0.7 10^3/uL 0-0.8 Abs Eosinophils 0.1 10^3/uL 0-0.6 Abs Basophils 0.1 10^3/uL 0-0.2 Abs Nucleated RBC 0 10^3/uL Granulocyte % 61.7 % 38-83 Lymphocyte % 28.7 % 25-47 Monocyte % 7.9 % 1-9 Eosinophil % 1.0 % 0-6 Basophil % 0.7 % 0-2 Nucleated Red Blood Cells % 0 Laboratory test finding 06/09/2013 C Reactive Protein 1.7 mg/dL High Less than 0.5 Erythrocyte Sed Rate 25 mm/Hr 0-30 CMP Panel 06/09/2013 Sodium 139 mmol/L 133-145 Potassium 3.8 mmol/L 3.5-5.0 Chloride 106 mmol/L 101-111 Co2 Carbon Dioxide 25.0 mmol/L 22-32 Anion Gap 8.0 mmol/L 2-11 Glucose 195 mg/dL High 70-100 Blood Urea Nitrogen 13 mg/dL 6-24 Creatinine 0.70 mg/dL 0.50-1.40 BUN/Creatinine Ratio 18.6 8-20 Calcium 9.6 mg/dL 8.1-9.9 Total Protein 6.7 g/dL 6.2-8.1 Albumin 3.8 g/dL 3.2-5.2 Globulin 2.9 g/dL 2-4 Albumin/Globulin Ratio 1.3 1-3 Total Bilirubin 0.8 mg/dL 0.4-1.5 Alkaline Phosphatase 93 U/L 30-110 Alt 16 U/L 14-54 Ast 18 U/L 12-42 Egfr Non- 85.1 >60 Egfr 109.4 >60 41 Comp Metabolic Panel 05/26/2013 Sodium 138 mmol/L 133-145 Potassium 4.0 mmol/L 3.5-5.0 Chloride 106 mmol/L 101-111 Co2 Carbon Dioxide 28.0 mmol/L 22-32 Anion Gap 4.0 mmol/L 2-11 Glucose 132 mg/dL High 70-100 Blood Urea Nitrogen 13 mg/dL 6-24 Creatinine 0.80 mg/dL 0.50-1.40 BUN/Creatinine Ratio 16.3 8-20 Calcium 9.6 mg/dL 8.1-9.9 Total Protein 5.8 g/dL Low 6.2-8.1 Albumin 3.6 g/dL 3.2-5.2 Globulin 2.2 g/dL 2-4 Albumin/Globulin Ratio 1.6 1-3 Total Bilirubin 0.8 mg/dL 0.4-1.5 Alkaline Phosphatase 96 U/L 30-110 Alt 20 U/L 14-54 Ast 21 U/L 12-42 Egfr Non- 72.9 >60 Egfr 93.8 >60 42 Laboratory test 05/26/2013 C Reactive Protein 1.7 mg/dL High Less than 0.5 finding CBC Auto Diff 05/26/2013 White Blood Count 10.5 10^3/uL 4.8-10.8 Red Blood Count 4.72 10^6/uL 4.0-5.4 Hemoglobin 13.5 g/dL 12.0-16.0 Hematocrit 43 % 35-47 Mean Corpuscular Volume 91 fL 80-97 Mean Corpuscular Hemoglobin 29 pg 27-31 Mean Corpuscular HGB Conc 32 g/dL 31-36 Red Cell Distribution Width 15 % 10.5-15 Platelet Count 283 10^3/uL 150-450 Mean Platelet Volume 10 um3 7.4-10.4 Abs Neutrophils 6.2 10^3/uL 1.5-7.7 Abs Lymphocytes 3.1 10^3/uL 1.0-4.8 Abs Monocytes 0.9 10^3/uL High 0-0.8 Abs Eosinophils 0.2 10^3/uL 0-0.6 Abs Basophils 0.1 10^3/uL 0-0.2 Abs Nucleated RBC 0.01 10^3/uL Granulocyte % 59.5 % 38-83 Lymphocyte % 29.9 % 25-47 Monocyte % 8.4 % 1-9 Eosinophil % 1.5 % 0-6 Basophil % 0.7 % 0-2 Nucleated Red Blood Cells % 0.1 Laboratory test finding 05/26/2013 Erythrocyte Sed Rate 24 mm/Hr 0-30 Comp Metabolic Panel 04/14/2013 Sodium 138 mmol/L 133-145 Potassium 4.4 mmol/L 3.5-5.0 Chloride 106 mmol/L 101-111 Co2 Carbon Dioxide 27.0 mmol/L 22-32 Anion Gap 5.0 mmol/L 2-11 Glucose 352 mg/dL High 70-100 Blood Urea Nitrogen 15 mg/dL 6-24 Creatinine 0.70 mg/dL 0.50-1.40 BUN/Creatinine Ratio 21.4 High 8-20 Calcium 9.3 mg/dL 8.1-9.9 Total Protein 6.2 g/dL 6.2-8.1 Albumin 3.5 g/dL 3.2-5.2 Globulin 2.7 g/dL 2-4 Albumin/Globulin Ratio 1.3 1-3 Total Bilirubin 0.6 mg/dL 0.4-1.5 Alkaline Phosphatase 85 U/L 30-110 Alt 17 U/L 14-54 Ast 18 U/L 12-42 Egfr Non- 85.1 >60 Egfr 109.4 >60 43 Laboratory test 04/14/2013 C Reactive Protein 0.9 mg/dL High Less than 0.5 finding CBC Auto Diff 04/14/2013 White Blood Count 9.1 10^3/uL 4.8-10.8 Red Blood Count 4.25 10^6/uL 4.0-5.4 Hemoglobin 12.7 g/dL 12.0-16.0 Hematocrit 38 % 35-47 Mean Corpuscular Volume 90 fL 80-97 Mean Corpuscular Hemoglobin 30 pg 27-31 Mean Corpuscular HGB Conc 33 g/dL 31-36 Red Cell Distribution Width 15 % 10.5-15 Platelet Count 249 10^3/uL 150-450 Mean Platelet Volume 9 um3 7.4-10.4 Abs Neutrophils 5.6 10^3/uL 1.5-7.7 Abs Lymphocytes 2.6 10^3/uL 1.0-4.8 Abs Monocytes 0.7 10^3/uL 0-0.8 Abs Eosinophils 0.1 10^3/uL 0-0.6 Abs Basophils 0.1 10^3/uL 0-0.2 Abs Nucleated RBC 0.01 10^3/uL Granulocyte % 61.5 % 38-83 Lymphocyte % 29.0 % 25-47 Monocyte % 7.7 % 1-9 Eosinophil % 1.2 % 0-6 Basophil % 0.6 % 0-2 Nucleated Red Blood Cells % 0.1 Laboratory test finding 04/14/2013 Erythrocyte Sed Rate 21 mm/Hr 0-30 Comp Metabolic Panel 03/17/2013 Sodium 133 mmol/L 133-145 Potassium 4.2 mmol/L 3.5-5.0 Chloride 105 mmol/L 101-111 Co2 Carbon Dioxide 24.0 mmol/L 22-32 Anion Gap 4.0 mmol/L 2-11 Glucose 365 mg/dL High 70-100 Blood Urea Nitrogen 13 mg/dL 6-24 Creatinine 0.70 mg/dL 0.50-1.40 BUN/Creatinine Ratio 18.6 8-20 Calcium 9.2 mg/dL 8.1-9.9 Total Protein 5.6 g/dL Low 6.2-8.1 Albumin 3.6 g/dL 3.2-5.2 Globulin 2.0 g/dL 2-4 Albumin/Globulin Ratio 1.8 1-3 Total Bilirubin 0.9 mg/dL 0.4-1.5 Alkaline Phosphatase 118 U/L High 30-110 Alt 42 U/L 14-54 Ast 24 U/L 12-42 Egfr Non- 85.1 >60 Egfr 109.4 >60 44 Laboratory test 03/17/2013 C Reactive Protein 1.5 mg/dL High Less than 0.5 finding CBC Auto Diff 03/17/2013 White Blood Count 9.2 10^3/uL 4.8-10.8 Red Blood Count 4.23 10^6/uL 4.0-5.4 Hemoglobin 13.0 g/dL 12.0-16.0 Hematocrit 38 % 35-47 Mean Corpuscular Volume 89 fL 80-97 Mean Corpuscular Hemoglobin 31 pg 27-31 Mean Corpuscular HGB Conc 35 g/dL 31-36 Red Cell Distribution Width 15 % 10.5-15 Platelet Count 256 10^3/uL 150-450 Mean Platelet Volume 9 um3 7.4-10.4 Abs Neutrophils 6.4 10^3/uL 1.5-7.7 Abs Lymphocytes 2.0 10^3/uL 1.0-4.8 Abs Monocytes 0.6 10^3/uL 0-0.8 Abs Eosinophils 0.1 10^3/uL 0-0.6 Abs Basophils 0.1 10^3/uL 0-0.2 Abs Nucleated RBC 0 10^3/uL Granulocyte % 69.6 % 38-83 Lymphocyte % 21.6 % Low 25-47 Monocyte % 7.0 % 1-9 Eosinophil % 1.1 % 0-6 Basophil % 0.7 % 0-2 Nucleated Red Blood Cells % 0 Laboratory test finding 03/17/2013 Erythrocyte Sed Rate 22 mm/Hr 0-30 Comp Metabolic Panel 02/12/2013 Sodium 139 mmol/L 133-145 Potassium 4.3 mmol/L 3.5-5.0 Chloride 108 mmol/L 101-111 Co2 Carbon Dioxide 25.0 mmol/L 22-32 Anion Gap 6.0 mmol/L 2-11 Glucose 218 mg/dL High 70-100 Blood Urea Nitrogen 12 mg/dL 6-24 Creatinine 0.50 mg/dL 0.50-1.40 BUN/Creatinine Ratio 24.0 High 8-20 Calcium 9.8 mg/dL 8.1-9.9 Total Protein 6.2 g/dL 6.2-8.1 Albumin 3.8 g/dL 3.2-5.2 Globulin 2.4 g/dL 2-4 Albumin/Globulin Ratio 1.6 1-3 Total Bilirubin 0.7 mg/dL 0.4-1.5 Alkaline Phosphatase 83 U/L 30-110 Alt 16 U/L 14-54 Ast 18 U/L 12-42 Egfr Non- 125.4 >60 Egfr 161.3 >60 45 Laboratory test 02/12/2013 C Reactive Protein 0.8 mg/dL High Less than 0.5 finding CBC Auto Diff 02/12/2013 White Blood Count 11.2 10^3/uL High 4.8-10.8 Red Blood Count 4.60 10^6/uL 4.0-5.4 Hemoglobin 13.7 g/dL 12.0-16.0 Hematocrit 41 % 35-47 Mean Corpuscular Volume 88 fL 80-97 Mean Corpuscular Hemoglobin 30 pg 27-31 Mean Corpuscular HGB Conc 34 g/dL 31-36 Red Cell Distribution Width 16 % High 10.5-15 Platelet Count 270 10^3/uL 150-450 Mean Platelet Volume 10 um3 7.4-10.4 Abs Neutrophils 7.6 10^3/uL 1.5-7.7 Abs Lymphocytes 2.8 10^3/uL 1.0-4.8 Abs Monocytes 0.7 10^3/uL 0-0.8 Abs Eosinophils 0 10^3/uL 0-0.6 Abs Basophils 0.1 10^3/uL 0-0.2 Abs Nucleated RBC 0.01 10^3/uL Granulocyte % 68.1 % 38-83 Lymphocyte % 24.7 % Low 25-47 Monocyte % 6.3 % 1-9 Eosinophil % 0.3 % 0-6 Basophil % 0.6 % 0-2 Nucleated Red Blood Cells % 0.1 Laboratory test finding 02/12/2013 Erythrocyte Sed Rate 24 mm/Hr 0-30 CBC Auto Diff 01/13/2013 White Blood Count 9.3 10^3/uL 4.8-10.8 Red Blood Count 4.49 10^6/uL 4.0-5.4 Hemoglobin 13.1 g/dL 12.0-16.0 Hematocrit 40 % 35-47 Mean Corpuscular Volume 88 fL 80-97 Mean Corpuscular Hemoglobin 29 pg 27-31 Mean Corpuscular HGB Conc 33 g/dL 31-36 Red Cell Distribution Width 16 % High 10.5-15 Platelet Count 256 10^3/uL 150-450 Mean Platelet Volume 10 um3 7.4-10.4 Abs Neutrophils 5.9 10^3/uL 1.5-7.7 Abs Lymphocytes 2.6 10^3/uL 1.0-4.8 Abs Monocytes 0.7 10^3/uL 0-0.8 Abs Eosinophils 0.1 10^3/uL 0-0.6 Abs Basophils 0.1 10^3/uL 0-0.2 Abs Nucleated RBC 0.01 10^3/uL Granulocyte % 63.6 % 38-83 Lymphocyte % 27.5 % 25-47 Monocyte % 7.4 % 1-9 Eosinophil % 0.9 % 0-6 Basophil % 0.6 % 0-2 Nucleated Red Blood Cells % 0.1 Laboratory test finding 01/13/2013 C Reactive Protein 1.2 mg/dL High Less than 0.5 Erythrocyte Sed Rate 29 mm/Hr 0-30 Comp Metabolic Panel 01/13/2013 Sodium 138 mmol/L 133-145 Potassium 4.2 mmol/L 3.5-5.0 Chloride 107 mmol/L 101-111 Co2 Carbon Dioxide 23.0 mmol/L 22-32 Anion Gap 8.0 mmol/L 2-11 Glucose 288 mg/dL High 70-100 Blood Urea Nitrogen 20 mg/dL 6-24 Creatinine 0.90 mg/dL 0.50-1.40 BUN/Creatinine Ratio 22.2 High 8-20 Calcium 9.5 mg/dL 8.1-9.9 Total Protein 6.0 g/dL Low 6.2-8.1 Albumin 3.5 g/dL 3.2-5.2 Globulin 2.5 g/dL 2-4 Albumin/Globulin Ratio 1.4 1-3 Total Bilirubin 0.6 mg/dL 0.4-1.5 Alkaline Phosphatase 103 U/L 30-110 Alt 25 U/L 14-54 Ast 24 U/L 12-42 Egfr Non- 63.9 >60 Egfr 82.1 >60 46 CBC With Manual Diff 11/30/2012 White Blood Count 8.8 10^3/uL 4.8-10.8 Red Blood Count 4.98 10^6/uL 4.0-5.4 Hemoglobin 14.0 g/dL 12.0-16.0 Hematocrit 43 % 35-47 Mean Corpuscular Volume 87 fL 80-97 Mean Corpuscular Hemoglobin 28 pg 27-31 Mean Corpuscular HGB Conc 32 g/dL 31-36 Red Cell Distribution Width 15 % 10.5-15 Platelet Count 241 10^3/uL 150-450 Mean Platelet Volume 9 um3 7.4-10.4 Abs Neutrophils 5.3 10^3/uL 1.5-7.7 Abs Lymphocytes 2.7 10^3/uL 1.0-4.8 Abs Monocytes 0.6 10^3/uL 0-0.8 Abs Eosinophils 0.1 10^3/uL 0-0.6 Abs Basophils 0.1 10^3/uL 0-0.2 Abs Nucleated RBC 0 10^3/uL Neutrophil % 56 % 38-83 Lymphocytes % 34 % 25-47 Monocytes % 8 % 0-13 Eosinophils % 1 % 0-6 Reactive Lymph % 1 % 0-6 RBC Morphology Normal Normal Comp Metabolic Panel 11/30/2012 Sodium 139 mmol/L 133-145 Potassium 4.6 mmol/L 3.5-5.0 Chloride 109 mmol/L 101-111 Co2 Carbon Dioxide 23.0 mmol/L 22-32 Anion Gap 7.0 mmol/L 2-11 Glucose 212 mg/dL High 70-100 Blood Urea Nitrogen 13 mg/dL 6-24 Creatinine 0.60 mg/dL 0.50-1.40 BUN/Creatinine Ratio 21.7 High 8-20 Calcium 9.8 mg/dL 8.1-9.9 Total Protein 6.6 g/dL 6.2-8.1 Albumin 3.7 g/dL 3.2-5.2 Globulin 2.9 g/dL 2-4 Albumin/Globulin Ratio 1.3 1-3 Total Bilirubin 0.7 mg/dL 0.4-1.5 Alkaline Phosphatase 122 U/L High 30-110 Alt 33 U/L 14-54 Ast 22 U/L 12-42 Egfr Non- 102.0 >60 Egfr 131.1 >60 47 Laboratory test finding 11/30/2012 Erythrocyte Sed Rate 22 mm/Hr 0-30 Cyclic Citrullinated Pept IgG 78.6 U 48 C Reactive Protein 0.6 mg/dL High Less than 0.5 Rheumatoid Factor <15 IU/mL <15 49 Hla B27 11/30/2012 Hla B27 Positive 50 Hla B27 Interp See Comment 51 Basic Metabolic Panel 07/19/2008 Sodium 141 mmol/L 135-145 52 Potassium 4.3 mmol/L 3.5-5.0 52 Chloride 107 mmol/L 101-111 52 Co2 (Carbon Dioxide) 29.0 mmol/L 22-32 52 Anion Gap 5.0 mmol/L 2-11 52, 53 Glucose 227 mg/dL High 70-100 52, 54 BUN 5 mg/dL Low 6-24 52 Creatinine 0.60 mg/dL 0.50-1.40 52 One Over Creatinine 1.60 52 BUN/Creatinine Ratio 8.3 8-20 52 Calcium 8.9 mg/dL 8.1-9.9 52, 55 CBC With Manual Diff 07/19/2008 White Blood Count 14.3 CUMM High 4.8-10.8 52 Red Cell Count 4.44 CUMM 4.2-5.4 52 Hemoglobin 12.4 g/dL 12.0-16.0 52 Hematocrit 37 % 35-47 52 Mean Corpuscular Volume 84 um3 79-97 52 Mean Corpuscular Hemoglob 28 pg 27-31 52 Mean Corpuscular HGB Cone 33 g/dL 32-36 52 Redcell Distribution WDTH 16 % High 10.5-15 52 Platelet Count 272 CUMM 150-450 52 Mean Platelet Volume 9.3 um3 7.4-10.4 52 Polysegmented Neutrophil 82 % 38-83 52 Band Neutrophil 3 % 0-8 52 Lymphocyte 11 % Low 25-47 52 Monocyte 3 % 0-13 52 Atypical Lymph 1 % 0-6 52 Absolute Neutrophil Count 12.1 52 Anisocytosis SLIGHT 52 Ovalocytes FEW 52 Surgical Pathology 07/18/2008 Surgical Pathology <SEE 56 NOTE> Basic Metabolic 07/13/2008 Sodium 137 mmol/L 135-145 Panel Potassium 3.9 mmol/L 3.5-5.0 Chloride 104 mmol/L 101-111 Co2 (Carbon Dioxide) 25.0 mmol/L 22-32 Anion Gap 8.0 mmol/L 2-11 57 Glucose 218 mg/dL High 70-100 58 BUN 11 mg/dL 6-24 Creatinine 0.60 mg/dL 0.50-1.40 One Over Creatinine 1.60 BUN/Creatinine Ratio 18.3 8-20 Calcium 9.5 mg/dL 8.1-9.9 59 Type And Screen 07/13/2008 Patient Blood Type A NEGATIVE Antibody Screen NEGATIVE Specimen Discard Date 07/27/08 60 Laboratory test finding 07/13/2008 PTT (Aptt) 21.1 20.1-28.2 61 CBC With Electronic Diff 07/13/2008 White Blood Count 10.9 CUMM High 4.8- 10.8 Red Cell Count 4.90 CUMM 4.2-5.4 Hemoglobin 13.8 g/dL 12.0-16.0 Hematocrit 41 % 35-47 Mean Corpuscular Volume 84 um3 79-97 Mean Corpuscular Hemoglob 28 pg 27-31 Mean Corpuscular HGB Cone 34 g/dL 32-36 Redcell Distribution WDTH 16 % High 10.5-15 Platelet Count 317 CUMM 150-450 Mean Platelet Volume 9.3 um3 7.4-10.4 Gran % 64.6 % 38-83 Lymph % 27.8 % 25-47 Mononuclear % 6.2 % 1-9 Eosinophil % 0.8 % 0-6 Basophil % 0.6 % 0-2 Abs Lymphs 3.0 1.0-4.8 Abs Mononuclear 0.7 0-0.8 Absolute Neutrophil Count 7.1 1.5-7.7 Abs Eosinophils 0.1 0-0.6 Abs Basophils 0.1 0-0.2 1 Because ethnic data is not always readily available, this report includes an eGFR for both -Americans and non- Americans. The National Kidney Disease Education Program (NKDEP) does not endorse the use of the MDRD equation for patients that are not between the ages of 18 and 70, are , have extremes of body size, muscle mass, or nutritional status, or are non- or non-. According to the National Kidney Foundation, irrespective of diagnosis, the stage of the disease is based on the level of kidney function: Stage Description GFR(mL/min/1.73 m(2)) 1 Kidney damage with normal or decreased GFR 90 2 Kidney damage with mild decrease in GFR 60-89 3 Moderate decrease in GFR 30-59 4 Severe decrease in GFR 15-29 5 Kidney failure <15 (or dialysis) 2 Normal Range 180 to 914 Indeterminate Range 145 to 180 Deficient Range <145 3 Copy Result to: NIKITA FAIRBANKS ([id number]) 4 Acute inflammation: >10.00 5 Copy Result to: NIKITA FAIRBANKS ([id number]) 6 Copy Result to: NIKITA FAIRBANKS ([id number]) 7 Acute inflammation: >10.00 8 Please check labs one week before follow up 9 Because ethnic data is not always readily available, this report includes an eGFR for both -Americans and non- Americans. The National Kidney Disease Education Program (NKDEP) does not endorse the use of the MDRD equation for patients that are not between the ages of 18 and 70, are , have extremes of body size, muscle mass, or nutritional status, or are non- or non-. According to the National Kidney Foundation, irrespective of diagnosis, the stage of the disease is based on the level of kidney function: Stage Description GFR(mL/min/1.73 m(2)) 1 Kidney damage with normal or decreased GFR 90 2 Kidney damage with mild decrease in GFR 60-89 3 Moderate decrease in GFR 30-59 4 Severe decrease in GFR 15-29 5 Kidney failure <15 (or dialysis) 10 Please check labs one week before follow up 11 Acute inflammation: >10.00 12 Because ethnic data is not always readily available, this report includes an eGFR for both -Americans and non- Americans. The National Kidney Disease Education Program (NKDEP) does not endorse the use of the MDRD equation for patients that are not between the ages of 18 and 70, are , have extremes of body size, muscle mass, or nutritional status, or are non- or non-. According to the National Kidney Foundation, irrespective of diagnosis, the stage of the disease is based on the level of kidney function: Stage Description GFR(mL/min/1.73 m(2)) 1 Kidney damage with normal or decreased GFR 90 2 Kidney damage with mild decrease in GFR 60-89 3 Moderate decrease in GFR 30-59 4 Severe decrease in GFR 15-29 5 Kidney failure <15 (or dialysis) 13 Acute inflammation: >10.00 14 Please check labs this month 15 No interferon-gamma response to M. tuberculosis antigens was detected. Infection with M. tuberculosis is unlikely. A negative result alone does not exclude infection with M. tuberculosis. For detailed information regarding test interpretation see: [email or web address]/test-catalog/ [email or web address] 16 Test Performed by: [place] [address] Technical Professional: Joaquin Desir II, M.D., Ph.D. 17 Acute inflammation: >10.00 18 Please check this week 19 Test Performed by: [facility] [address] [place] [address] Technical Professional: Joaquin Desir II, M.D., Ph.D. 20 Interpretation: Strong Positive (>=60.0) REFERENCE VALUE <20.0 (Negative) Test Performed by: [facility] [address] [place] [address] Technical Professional: Joaquin Desir II, M.D., Ph.D. 21 Because ethnic data is not always readily available, this report includes an eGFR for both -Americans and non- Americans. The National Kidney Disease Education Program (NKDEP) does not endorse the use of the MDRD equation for patients that are not between the ages of 18 and 70, are , have extremes of body size, muscle mass, or nutritional status, or are non- or non-. According to the National Kidney Foundation, irrespective of diagnosis, the stage of the disease is based on the level of kidney function: Stage Description GFR(mL/min/1.73 m(2)) 1 Kidney damage with normal or decreased GFR 90 2 Kidney damage with mild decrease in GFR 60-89 3 Moderate decrease in GFR 30-59 4 Severe decrease in GFR 15-29 5 Kidney failure <15 (or dialysis) 22 Please check this week 23 Please check this week 24 Normal Range 180 to 914 Indeterminate Range 145 to 180 Deficient Range <145 25 Please check this week 26 Test Performed by: [facility] [address] [place] [address] Technical Professional: Joaquin Desir II, M.D., Ph.D. 27 Acute inflammation: >10.00 28 Standing orders q6-8 weeks or as directed 29 Because ethnic data is not always readily available, this report includes an eGFR for both -Americans and non- Americans. The National Kidney Disease Education Program (NKDEP) does not endorse the use of the MDRD equation for patients that are not between the ages of 18 and 70, are , have extremes of body size, muscle mass, or nutritional status, or are non- or non-. According to the National Kidney Foundation, irrespective of diagnosis, the stage of the disease is based on the level of kidney function: Stage Description GFR(mL/min/1.73 m(2)) 1 Kidney damage with normal or decreased GFR 90 2 Kidney damage with mild decrease in GFR 60-89 3 Moderate decrease in GFR 30-59 4 Severe decrease in GFR 15-29 5 Kidney failure <15 (or dialysis) 30 Acute inflammation: >10.00 31 Because ethnic data is not always readily available, this report includes an eGFR for both -Americans and non- Americans. The National Kidney Disease Education Program (NKDEP) does not endorse the use of the MDRD equation for patients that are not between the ages of 18 and 70, are , have extremes of body size, muscle mass, or nutritional status, or are non- or non-. According to the National Kidney Foundation, irrespective of diagnosis, the stage of the disease is based on the level of kidney function: Stage Description GFR(mL/min/1.73 m(2)) 1 Kidney damage with normal or decreased GFR 90 2 Kidney damage with mild decrease in GFR 60-89 3 Moderate decrease in GFR 30-59 4 Severe decrease in GFR 15-29 5 Kidney failure <15 (or dialysis) 32 Because ethnic data is not always readily available, this report includes an eGFR for both -Americans and non- Americans. The National Kidney Disease Education Program (NKDEP) does not endorse the use of the MDRD equation for patients that are not between the ages of 18 and 70, are , have extremes of body size, muscle mass, or nutritional status, or are non- or non-. According to the National Kidney Foundation, irrespective of diagnosis, the stage of the disease is based on the level of kidney function: Stage Description GFR(mL/min/1.73 m(2)) 1 Kidney damage with normal or decreased GFR 90 2 Kidney damage with mild decrease in GFR 60-89 3 Moderate decrease in GFR 30-59 4 Severe decrease in GFR 15-29 5 Kidney failure <15 (or dialysis) 33 Desirable <150 Borderline high 150-199 High 200-499 Very High >500 34 Desirable <200 Borderline high 200-239 High >239 35 Low <40 Desirable: 40-60 High: >60 36 Desirable <100 Near Optimal 100-129 Borderline high 130-159 High 160-189 Very High >189 37 HDL Interpretation: Undesirable: High Risk: Less than 40 mg/dL Desirable: Low Risk: Greater than 60 mg/dL 38 LDL Interpretation: Low Risk Optimal Level: LDL Less than 100 mg/dL Near or Above Optimal: LDL 100-129 mg/dL Borderline High Risk: LDL 130-159 mg/dL High Risk: LDL 160-189 mg/dL Very High Risk: LDL Greater than 189 mg/dL 39 Microalbuminuria in a random sample is defined as: Microalbumin/Creatinine ratio of 30-299 ug/mg. 40 Because ethnic data is not always readily available, this report includes an eGFR for both -Americans and non- Americans. The National Kidney Disease Education Program (NKDEP) does not endorse the use of the MDRD equation for patients that are not between the ages of 18 and 70, are , have extremes of body size, muscle mass, or nutritional status, or are non- or non-. According to the National Kidney Foundation, irrespective of diagnosis, the stage of the disease is based on the level of kidney function: Stage Description GFR(mL/min/1.73 m(2)) 1 Kidney damage with normal or decreased GFR 90 2 Kidney damage with mild decrease in GFR 60-89 3 Moderate decrease in GFR 30-59 4 Severe decrease in GFR 15-29 5 Kidney failure <15 (or dialysis) 41 Because ethnic data is not always readily available, this report includes an eGFR for both -Americans and non- Americans. The National Kidney Disease Education Program (NKDEP) does not endorse the use of the MDRD equation for patients that are not between the ages of 18 and 70, are , have extremes of body size, muscle mass, or nutritional status, or are non- or non-. According to the National Kidney Foundation, irrespective of diagnosis, the stage of the disease is based on the level of kidney function: Stage Description GFR(mL/min/1.73 m(2)) 1 Kidney damage with normal or decreased GFR 90 2 Kidney damage with mild decrease in GFR 60-89 3 Moderate decrease in GFR 30-59 4 Severe decrease in GFR 15-29 5 Kidney failure <15 (or dialysis) 42 Because ethnic data is not always readily available, this report includes an eGFR for both -Americans and non- Americans. The National Kidney Disease Education Program (NKDEP) does not endorse the use of the MDRD equation for patients that are not between the ages of 18 and 70, are , have extremes of body size, muscle mass, or nutritional status, or are non- or non-. According to the National Kidney Foundation, irrespective of diagnosis, the stage of the disease is based on the level of kidney function: Stage Description GFR(mL/min/1.73 m(2)) 1 Kidney damage with normal or decreased GFR 90 2 Kidney damage with mild decrease in GFR 60-89 3 Moderate decrease in GFR 30-59 4 Severe decrease in GFR 15-29 5 Kidney failure <15 (or dialysis) 43 Because ethnic data is not always readily available, this report includes an eGFR for both -Americans and non- Americans. The National Kidney Disease Education Program (NKDEP) does not endorse the use of the MDRD equation for patients that are not between the ages of 18 and 70, are , have extremes of body size, muscle mass, or nutritional status, or are non- or non-. According to the National Kidney Foundation, irrespective of diagnosis, the stage of the disease is based on the level of kidney function: Stage Description GFR(mL/min/1.73 m(2)) 1 Kidney damage with normal or decreased GFR 90 2 Kidney damage with mild decrease in GFR 60-89 3 Moderate decrease in GFR 30-59 4 Severe decrease in GFR 15-29 5 Kidney failure <15 (or dialysis) 44 Because ethnic data is not always readily available, this report includes an eGFR for both -Americans and non- Americans. The National Kidney Disease Education Program (NKDEP) does not endorse the use of the MDRD equation for patients that are not between the ages of 18 and 70, are , have extremes of body size, muscle mass, or nutritional status, or are non- or non-. According to the National Kidney Foundation, irrespective of diagnosis, the stage of the disease is based on the level of kidney function: Stage Description GFR(mL/min/1.73 m(2)) 1 Kidney damage with normal or decreased GFR 90 2 Kidney damage with mild decrease in GFR 60-89 3 Moderate decrease in GFR 30-59 4 Severe decrease in GFR 15-29 5 Kidney failure <15 (or dialysis) 45 Because ethnic data is not always readily available, this report includes an eGFR for both -Americans and non- Americans. The National Kidney Disease Education Program (NKDEP) does not endorse the use of the MDRD equation for patients that are not between the ages of 18 and 70, are , have extremes of body size, muscle mass, or nutritional status, or are non- or non-. According to the National Kidney Foundation, irrespective of diagnosis, the stage of the disease is based on the level of kidney function: Stage Description GFR(mL/min/1.73 m(2)) 1 Kidney damage with normal or decreased GFR 90 2 Kidney damage with mild decrease in GFR 60-89 3 Moderate decrease in GFR 30-59 4 Severe decrease in GFR 15-29 5 Kidney failure <15 (or dialysis) 46 Because ethnic data is not always readily available, this report includes an eGFR for both -Americans and non- Americans. The National Kidney Disease Education Program (NKDEP) does not endorse the use of the MDRD equation for patients that are not between the ages of 18 and 70, are , have extremes of body size, muscle mass, or nutritional status, or are non- or non-. According to the National Kidney Foundation, irrespective of diagnosis, the stage of the disease is based on the level of kidney function: Stage Description GFR(mL/min/1.73 m(2)) 1 Kidney damage with normal or decreased GFR 90 2 Kidney damage with mild decrease in GFR 60-89 3 Moderate decrease in GFR 30-59 4 Severe decrease in GFR 15-29 5 Kidney failure <15 (or dialysis) 47 Because ethnic data is not always readily available, this report includes an eGFR for both -Americans and non- Americans. The National Kidney Disease Education Program (NKDEP) does not endorse the use of the MDRD equation for patients that are not between the ages of 18 and 70, are , have extremes of body size, muscle mass, or nutritional status, or are non- or non-. According to the [employer], irrespective of diagnosis, the stage of the disease is based on the level of kidney function: Stage Description GFR(mL/min/1.73 m(2)) 1 Kidney damage with normal or decreased GFR 90 2 Kidney damage with mild decrease in GFR 60-89 3 Moderate decrease in GFR 30-59 4 Severe decrease in GFR 15-29 5 Kidney failure <15 (or dialysis) 48 Interpretation: Strong Positive (>=60.0) -- REFERENCE VALUE -- <20.0 (Negative) Test Performed by: [place] [address] Technical Professional: Ricardo Fernandez III, M.D. 49 Test Performed by: [place] [address] Technical Professional: Ricardo Fernandez III, M.D. 50 -- REFERENCE VALUE -- Not Applicable 51 HLA-B27 antigen was detected. Approximately 8% of the normal population carries the HLA-B27 antigen. HLA-B27 is present in approximately 89% of patients with ankylosing spondylitis, 79% of patients with Maria Luisa's syndrome and 42% of patients with juvenile rheumatoid arthritis. However, lacking other data, it is not diagnostic for these disorders. Method: Flow Cytometry Test Performed by: [place] [address] Technical Professional: Ricardo Fernandez III, M.D. 52 COMMENTS? N 53 Anion gap measurement may be of limited value in the presence of any alkalosis, especially in a combined acid base disorder. . 54 Note change in reference range as of 04/14/08. The change was based on recommendations from the [place] [employer]. 55 Please note change in reference range effective 08 . 56 ---- RUN DATE: 07/20/08 [facility] NMI LIVE PAGE 1 RUN TIME: 1556 Specimen Inquiry RUN USER: INTERFACE -- Name: STACIA MANCUSO Accchapo#: [id number] Status: 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 Sterilization Specialist sections, one cassette. 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 Signed Electronically by: SORAYA DAS 07/20/08 1556 -- -- DEPARTMENT OF PATHOLOGY, [address] [place] [address] [facility] Permit #[id number] Dhaval Horowitz M.D. Director Soraya Das M.D. Associate Financial Planner Dir kyung -- 57 Anion gap measurement may be of limited value in the presence of any alkalosis, especially in a combined acid base disorder. . 58 Note change in reference range as of 04/14/08. The change was based on recommendations from the [place] [employer]. 59 Please note change in reference range effective 08 . 60 PREADMISSION TESTING SAMPLES FOR BLOOD BANK WILL BE HELD FOR 14 DAYS FROM THE DATE OF COLLECTION *IF* THE FOLLOWING CRITERIA ARE MET: 1) THE PATIENT HAS *NOT* BEEN IN THE LAST 3 MONTHS. 2) THE PATIENT HAS *NOT* BEEN TRANSFUSED IN THE LAST 3 MONTHS. PREADMISSION TESTING SAMPLES WILL *NOT* BE HELD FOR 14 DAYS FROM PATIENTS WHO IN THE LAST 3 MONTHS: 1) HAVE BEEN 2) HAVE BEEN TRANSFUSED THESE PATIENTS *MUST* BE COLLECTED WITHIN 3 DAYS OF THE SURGERY DATE. 61 PLEASE NOTE NEW REFERENCE RANGE EFFECTIVE 08. Procedures Date CPT Code Description Status 03/13/2018 71942 Nerve Conduction 03-04 Studies Completed 05/12/2017 12781 EEG Recording Awake & Drowsy Completed 03/10/2017 31168 ECHO Transthorasic Realtime 2D W Doppler & Color Flow Completed Hosp 04/08/2013 55591 Treadmill Interp/Report Only Completed 04/08/2013 02079 Stress Test Supervsn W/Out I/R Completed 01/29/2011 92274 Treadmill Interp/Report Only Completed 01/29/2011 22124 Stress Test Supervsn W/Out I/R Completed 07/18/2008 33358 Discectomy,W/Decomp SP Cord/Nerve Root;Cervical Single Completed Interspace 07/18/2008 65330 Discectomy,W/Decomp SP Cord/Nerve Root;Cervical Single Completed Interspace 07/18/2008 45424 Application Of Spinal Device Completed 07/18/2008 49463 Arthrodesis, Anterior Cervical C2 And Below Completed 04/21/2007 25767 Stress ECHO Interpretation/Report Hospital Completed 04/21/2007 34602 Stress ECHO Interpretation/Report Hospital Completed 04/21/2007 65999 Treadmill Interp/Report Only Completed 04/21/2007 92065 Stress Test Supervsn W/Out I/R Completed 04/21/2007 61434 Stress Test Supervsn W/Out I/R Completed Encounters Type Date Location Provider CPT E/M Dx Office Visit 04/23/2018 Marcos Tijerina 72560 G56.01 10:00a Services Of Rubina Sidhu G31.84 Office Visit 02/19/2018 11:00a Rheumatology Services Sarkis Riley 90618 M05.79 Of Rubina Sidhu Z79.899 M17.0 R20.8 Office Visit 02/09/2018 3:30p Marcos Tijerina 62804 G31.84 Services Of Youth Support Worker M.D. G47.10 R20.2 Office Visit 01/09/2018 11:00a [facility] Fredrick Tijerina, 18815 G31.84 Services Of Youth Support Worker M.D. Office Visit 10/30/2017 10:15a [facility] Fredrick Tijerina, 38589 G31.84 M.D. R53.82 G47.10 Office Visit 08/14/2017 10:00a Rheumatology Services Sarkis Riley 45607 M05.79 Of Youth Support Worker M.D. Z79.899 M17.0 R20.8 Office Visit 05/23/2017 4:00p [facility] Fredrick Tijerina, 90890 R41.1 Services Of Youth Support Worker M.D. Office Visit 05/09/2017 11:15a [facility] Fredrick Tijerina, 22235 R41.1 Services Of Youth Support Worker M.D. R41.82 Office Visit 03/08/2017 2:30p [facility], He Hunter, 31961 R55 Hospitalists Thea,FACP E11.8 Z79.4 Office Visit 02/12/2017 10:00a Rheumatology Services Sarkis Riley 01489 M05.79 Of Youth Support Worker M.D. Z79.899 M46.90 M17.0 Office Visit 11/12/2016 9:40a Rheumatology Services Sarkis Riley 67025 M05.79 Of Youth Support Worker M.D. Z79.899 M46.90 M46.1 Office Visit 08/12/2016 9:40a Rheumatology Services Sarkis Riley 77728 M05.79 Of Youth Support Worker M.D. Z79.899 M46.90 Office Visit 05/13/2016 11:40a Rheumatology Services Sarkis Riley 11336 M05.79 Of Youth Support Worker M.D. Z79.899 M46.90 Office Visit 04/22/2016 9:40a Rheumatology Services Sarkis Riley 43391 M05.79 Of Youth Support Worker M.D. Z79.899 M46.1 M54.5 Office Visit 02/21/2016 11:40a Rheumatology Services Sarkis Riley 73472 M05.79 Of Youth Support Worker M.D. Z79.899 R20.8 Office Visit 01/31/2016 10:20a Rheumatology Services Sarkis Riley, 23301 M05.79 Of [facility] M.DJarett Z79.899 R20.8 M46.1 M54.5 M89.419 E11.9 Office Visit 07/21/2013 1:20p Rheumatology Services Kwasi Lind M.D. 09880 714.0 Of [facility] 730.26 720.9 V58.69 Office Visit 06/15/2013 9:40a Rheumatology Services Of Carlos Dempsey, [facility] 66656 714.0 Youth Support Worker 720.9 730.26 V58.69 Office Visit 05/05/2013 1:20p Rheumatology Services Kwasi Lind M.D. 30758 714.0 Of Youth Support Worker 720.9 V58.69 730.26 Office Visit 04/08/2013 1:30p [facility] Rei Santillan, 78411 786.50 MJarettDJarett 250.00 Office Visit 02/09/2013 1:40p Rheumatology Services Kwasi Lind M.D. 59809 714.0 Of Youth Support Worker 720.9 V58.69 Office Visit 12/14/2012 1:00p Rheumatology Services Kwasi Lind M.D. 01186 714.0 Of Youth Support Worker V58.69 Office Visit 11/02/2012 3:00p Rheumatology Services Kwasi Lind M.D. 53830 714.0 Of [facility] 795.79 V58.69 Office Visit 01/08/2012 1:40p Neurosurgery Services Gary Matias, 13042 724.2 Of [facility] AT Lilly Thea 724.3 Office Visit 01/30/2009 10:40a Neurosurgery Services Gary Matias, 22066 722.71 Of [facility] M.DJarett Office Visit 07/01/2008 11:00a Neurosurgery Services Gary Matias 53710 722.0 Of [facility] M.D. Office Visit 04/21/2007 11:00a [facility] Juliatalaxmi S. 78127 401.0 Thea Sauceda 272.4 V72.81 Plan of Care Future Appointment(s):06/03/2018 1:10 pm - Sorin Thakur M.D. at [facility]07/27/2018 9:15 am - Fredrick Tijerina M.D. at [facility]11/19/2018 10:00 am - Sarkis Riley M.D. at [facility]05/11/2018 - Sorin Thakur M.D.G56.01 Carpal tunnel syndrome, right upper limbG56.01 Carpal tunnel syndrome, right upper limb
--- OUTSIDE RECORDS SUMMARY | 2018-06-04 10:39 | XMS REPORT ---
:1950 External Reference #:[id number] Author Organization [facility] Address [address] [place] [address] Phone [phone] Care Team Providers Name Role Phone Fredrick Tijerina M.D. 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 Nikita Fairbanks MD Primary Care Physician Unavailable Payers Type Date Identification Payment Subscriber Numbers Provider Health Maintenance Effective: Policy Number: Medicare Blue Stacia Mancuso Organization (O) 03/25/2018 [id number] Pp PayID: [id number] [address] [address] MARSHA June [address] Medigap Part B Effective: 11/24/2011 Policy Number: Jeniffer Corky Mancuso [id number] Expires: 04/24/2018 PayID: [id number] [address] [place] [address] MARSHA June [address] Medigap Part B Expires: 04/24/2018 Policy Number: Medicare Stacia Mancuso [id number] PayID: [id number] [address] [place] [address] Problems Date Description Provider Status Onset: 11/02/2012 Rheumatoid arthritis Kwasi Lind M.D. Active Onset: 11/02/2012 Immunological Findings Nonspec Other Kwasi Lind M.D. Active & Unspec Onset: 11/02/2012 Medications Prison (Current) Use Kwasi Lind M.D. Active Encounter Onset: 02/09/2013 Inflammatory spondylopathy Kwasi Lind M.D. Active Onset: 05/05/2013 Osteomyelitis of lower leg Kwasi Lind M.D. Active Onset: 04/19/2015 Taking medication JOAO Marx Active Onset: 05/09/2017 Amnesia Fredrick Tijerina M.D. Active Onset: 05/09/2017 Altered mental status Fredrick Tijerina M.D. Active Onset: 10/30/2017 Minimal cognitive impairment Fredrick Tijerina M.D. Active Onset: 10/30/2017 Chronic fatigue syndrome Fredrick Tijerina M.D. Active Onset: 10/30/2017 Hypersomnia Fredrick Tijerina M.D. Active Onset: 02/09/2018 Skin sensation disturbance Fredrick Tijerina M.D. Active Onset: 04/23/2018 Carpal tunnel syndrome of right wrist Fredrick Tijerina M.D. Active Onset: 06/03/2018 Convalescence after surgery Sorin Thakur M.D. Active Family History Date Family Member(s) Problem(s) Comments Father Hypertension Father Coronary Artery Disease (CAD) Mother Arthritis Siblings 4 Social History Type Date Description Comments Marital Status Lives With Occupation Currently Working Has a [employer] ETOH Use Rarely consumes alcohol Smoking Patient has never smoked Daily Caffeine Consumes on average 1 cup of hot tea per day Exercise Type/Frequency Exercises regularly Allergies, Adverse Reactions, Alerts Date Description Reaction Status Severity Comments 11/02/2012 Sulfa Antibiotics active 11/02/2012 Bactrim active 01/31/2016 Penicillin active 01/31/2016 Clonazepam active Medications Medication Date Status Form Strength Qnty SIG Indications Ordering Provider Levofloxacin 06/03 Active Tablets 500mg 10tab 1 PO Z48.89 s daily x Ofe, 10 days M.DJarett Rivastigmine 04/23 Active Capsules 3mg 180ca 1 by Ruiz ps mouth Thea Tijerina twice a day Memantine HCL 01/09 Active Tablets 10mg 60tab one G384 s tablet Thea Tijerina twice a day Hydroxychloroquin 10/27 Active Tablets 200mg 180ta Take One bs Tablet By Thea Riley Mouth Two Times A Day Sertraline HCL 08/14 Active Tablets 50mg 30tab 1 by s mouth Thea Riley bid every day D3 High Potency 08/14 Active Capsules 2000Unit 90cap take one s capsule/chapo Riley M.D. ablet daily by mouth Voltaren 08/14 Active Gel 1% 200un apply 2 its grams Thea Riley twice daily as needed for pain to the hands Insulin 07/28 Active Misc 28G X 12uni sc weekly Kwasi Syringe/1ML/28G 08/26" 1 ML ts for mtx Thea Lind 08/26" as directed Amlodipine Active Tablets 10mg [...] Gabapentin Active Capsules 300mg 1 by Martín, / mouth two FAMILIA NuñezP times a day.. Basaglar Kwikpen Active Solution 100Unit/M As Nikita Fairbanks, / Pen-Injec L екатерина cowan Rivastigmine 02/09 Hx Capsules 1.5mg 60cap take one G31.84 Christopher Tartrate s capsule Thea Tijerina - by mouth 04/23 twice a day Donepezil HCL 10/30 Hx Tablets 10mg 30tab take 1 G31.84 Christoph s pill by Thea Tijerina - mouth in 01/07 in morning Hydroxxchloroquin 10/27 Hx 200mg one tab by mouth Thea Riley - twice a 2018 Enbrel 04/22 Hx Soln 50mg/ml 4unit 50mg sq M05.79 Prefill s every Thea Riley - Syringe week 07/01 Cyanocobalamin 02/06 Hx Tablets 2500mcg 60tab take one Sub s capsule/chapo Riley M.D. - ablet 05/08 sublingua l Plaquenil 01/30 Hx Tablets 200mg 180ta Take one Z79.899 bs capsule/chapo Riley M.D. - ablet by 05/08 twice daily Methotrexate 07/21 Hx Solution 25mg/ml 4cc 0.4cc/wee 714.0 Kwasi roger Lind M.D. - 01/19 Methotrexate 06/15 Hx Tablets 2.5mg 3 tbs po 714.0 Zsofi every JOAO Dempsey - week 07/21 Voltaren 06/15 Hx Gel 1% 1tube apply to M05.79 s affected JOAO Dempsey - area bid, 02/12 prn Methotrexate 12/14 Hx Tablets 2.5mg 20tab 4 tabs 1x 714.0 s per week Thea Lind - 06/15 Folic Acid 12/14 Hx Tablets 1mg 90tab 1 po qd 714.0 matt Lind M.D. - 01/19 Atenolol 11/02 Hx Tablets 50mg 30tab 1/2 po Other s qd Ordering - Provider 05/08 Atacand [...] Fast Dissolve Hx Tablets 5000mcg sl daily Unknown /0000 Dispers - 10/29 Famotidine Hx Tablets 10mg one by Unknown /0000 mouth - twice a Lantus Hx Solution 38-40Unit inject Unknown /0000 s 38-40 - units 04/22 sub every day in in the morning Hydroxxchloroquin 00/00 Hx 200mg one tab Sarkis e /0000 by rene Riley M.D. - twice a /2017 Vital Signs Date Vital Result Comment 06/03/2018 Height 68 inches 5'8" Weight 200.00 lb BP Systolic 150 mmHg BP Diastolic 80 mmHg Body Temperature 97.8 F Pain Level 6 BMI (Body Mass Index) 30.4 kg/m2 05/11/2018 Height 68 inches 5'8" Weight 200.00 [...] Test Date Test Result H/L Range Note Laboratory test finding 05/26/2018 Hepatitis C Antibody <pending> Hepatitis C Ab - Self Ref Nonreactive Nonreactive Laboratory test finding 05/26/2018 Point of Care Glucose 194 mg/dL High 70 -100 1 CBC No Diff 05/19/2018 White Blood Count 8.5 10^3/uL 3.5-10.8 Red Blood Count 4.53 10^6/uL 4.00-5.40 Hemoglobin 13.1 g/dL 12.0-16.0 Hematocrit 39 % 35-47 Mean Corpuscular Volume 87 fL 80-97 Mean Corpuscular Hemoglobin 29 pg 27-31 Mean Corpuscular HGB Conc 33 g/dL 31-36 Red Cell Distribution Width 15 % 10.5-15 Platelet Count 307 10^3/uL 150-450 Mean Platelet Volume 8.4 um3 7.4-10.4 Basic Metabolic Panel 05/19/2018 Sodium 141 mmol/L 135-145 Potassium 4.2 mmol/L 3.5-5.0 Chloride 109 mmol/L 101-111 Co2 Carbon Dioxide 25 mmol/L 22-32 Anion Gap 7 mmol/L 2-11 Glucose 141 mg/dL High 70-100 Blood Urea Nitrogen 17 mg/dL 6-24 Creatinine 0.64 mg/dL 0.51-0.95 BUN/Creatinine Ratio 26.6 High 8-20 Calcium 9.9 mg/dL 8.6-10.3 Egfr Non- 92.8 >60 Egfr 112.3 >60 2 Laboratory test finding 05/19/2018 TSH (Thyroid Stim Horm) 1.58 mcIU/mL 0.34-5.60 Comp Metabolic Panel 01/06/2018 Sodium 139 mmol/L [...] Egfr Non- 86.8 >60 Egfr 111.7 >60 3 Laboratory test finding 01/06/2018 Vitamin B12 695 pg/mL 180-914 4 Folic Acid (Folate) 8.47 ng/mL >3.99 5 C Reactive Protein 6.50 mg/L High < 5.00 6 TSH (Thyroid Stim Horm) 3.83 mcIU/mL 0.34-5.60 7 Free T4 (Free Thyroxine) 0.77 ng/dL 0.61-1.12 8 Laboratory test finding 08/08/2017 C Reactive Protein 8.18 mg/L High < 5.00 9 Erythrocyte Sed Rate 29 mm/Hr 0-40 10 CBC Auto Diff 08/08/2017 White Blood Count [...] Egfr Non- 85.4 >60 Egfr 109.8 >60 11 Laboratory test finding 02/10/2017 Erythrocyte Sed Rate 26 mm/Hr 0-40 12 C Reactive Protein 8.96 mg/L High < 5.00 13 CBC Auto Diff 02/10/2017 White Blood Count [...] Egfr Non- 94.8 >60 Egfr 122.0 >60 14 Laboratory test finding 08/29/2016 C Reactive Protein 12.85 mg/L High < 5.00 15 Erythrocyte Sed Rate 27 mm/Hr 0-30 16 CBC Auto Diff 08/29/2016 White Blood Count [...] 04/22/2016 M tuberculosis by Quantiferon Negative Negative 17 TB Ag minus Nil Result 0 IU/mL TB Mitogen minus Nil Result > 10.00 IU/mL TB Nil Result 0.02 IU/mL 18 Laboratory test finding 02/01/2016 C Reactive Protein 10.54 mg/L High < 5.00 19 Erythrocyte Sed Rate 35 mm/Hr High 0-30 20 Rheumatoid Factor 16 IU/mL <15 21 Cyclic Citrullinated Pep Igg 75.0 U 22 CBC Auto Diff 02/01/2016 White Blood Count [...] Egfr Non- 99.1 >60 Egfr 127.4 >60 23 Laboratory test finding 02/01/2016 Creatine Kinase(CK) 35 U/L 10-223 24 TSH (Thyroid Stim Horm) 1.74 ?IU/mL 0.34-5.60 25 Vitamin B12 233 pg/mL 180-914 26 Vitamin D 1,25 And Vitamin 02/01/2016 Vitamin D Total 25(Oh) 19.0 ng/mL Low 30-50 27 D,2 Vitamin D, 1,25 Dihydroxy 88 pg/mL 18-78 28 CBC Auto Diff 04/11/2015 White Blood Count [...] Reactive Protein 9.02 mg/L High < 5.00 29 Erythrocyte Sed Rate 17 mm/Hr 0-30 30 Comp Metabolic Panel 04/11/2015 Sodium 135 mmol/L [...] Egfr Non- 99.1 >60 Egfr 127.4 >60 31 CBC Auto Diff 02/24/2014 White Blood Count [...] Reactive Protein 7.23 mg/L High < 5.00 32 Erythrocyte Sed Rate 20 mm/Hr 0-30 Comp [...] Egfr Non- 101.3 >60 Egfr 130.3 >60 33 Comp Metabolic Panel 10/06/2013 Sodium 135 mmol/L [...] Egfr Non- 96.1 >60 Egfr 123.6 >60 34 Lipid Profile (Trig/Chol/HDL) 10/06/2013 Triglycerides 103 mg/dL 35 Cholesterol 225 mg/dL 36 HDL Cholesterol 56.9 mg/dL 37 LDL Cholesterol 148 mg/dL 38 Lipid Profile (Trig/Chol/HDL) 06/30/2013 Triglycerides 62 mg/dL 40-200 Cholesterol 213 mg/dL High Less than 200 HDL Cholesterol 53 mg/dL 40-60 39 Cholesterol/HDL Ratio 4.0 Average 1-4.44 LDL Cholesterol 147.6 High Less Than 100 40 Liver Function Panel 06/30/2013 Total Protein 5.6 g/dL Low 6.2-8.1 Albumin 3.6 g/dL 3.2-5.2 Globulin 2.0 g/dL 2-4 Albumin/Globulin Ratio 1.8 1-3 Total Bilirubin 0.5 mg/dL 0.4-1.5 Direct Bilirubin 0.1 mg/dL 0.1-0.5 Indirect Bilirubin 0.4 mg/dL 0.3-1.0 Alkaline Phosphatase 90 U/L 30-110 Alt 18 U/L 14-54 Ast 18 U/L 12-42 Urine Microalbumin Random 06/30/2013 Ur Microalbumin (mg/L) 18.0 mg/L 41 Urine Creatinine 85.8 mg/dL Urine Microalbumin/Creatinine 21.0 [...] Egfr Non- 101.6 >60 Egfr 130.7 >60 42 Laboratory test 06/30/2013 C Reactive Protein 1.0 [...] Non- 85.1 >60 Egfr 109.4 >60 43 Comp Metabolic Panel 05/26/2013 Sodium 138 mmol/L [...] Egfr Non- 72.9 >60 Egfr 93.8 >60 44 Laboratory test 05/26/2013 C Reactive Protein 1.7 [...] Egfr Non- 85.1 >60 Egfr 109.4 >60 45 Laboratory test 04/14/2013 C Reactive Protein 0.9 [...] Egfr Non- 85.1 >60 Egfr 109.4 >60 46 Laboratory test 03/17/2013 C Reactive Protein 1.5 [...] Egfr Non- 125.4 >60 Egfr 161.3 >60 47 Laboratory test 02/12/2013 C Reactive Protein 0.8 [...] Egfr Non- 63.9 >60 Egfr 82.1 >60 48 CBC With Manual Diff 11/30/2012 White Blood [...] Egfr Non- 102.0 >60 Egfr 131.1 >60 49 Laboratory test finding 11/30/2012 Erythrocyte Sed Rate 22 mm/Hr 0-30 Cyclic Citrullinated Pept IgG 78.6 U 50 C Reactive Protein 0.6 mg/dL High Less than 0.5 Rheumatoid Factor <15 IU/mL <15 51 Hla B27 11/30/2012 Hla B27 Positive 52 Hla B27 Interp See Comment 53 Basic Metabolic Panel 07/19/2008 Sodium 141 mmol/L 135-145 54 Potassium 4.3 mmol/L 3.5-5.0 54 Chloride 107 mmol/L 101-111 54 Co2 (Carbon Dioxide) 29.0 mmol/L 22-32 54 Anion Gap 5.0 mmol/L 2-11 54, 55 Glucose 227 mg/dL High 70-100 54, 56 BUN 5 mg/dL Low 6-24 54 Creatinine 0.60 mg/dL 0.50-1.40 54 One Over Creatinine 1.60 54 BUN/Creatinine Ratio 8.3 8-20 54 Calcium 8.9 mg/dL 8.1-9.9 54, 57 CBC With Manual Diff 07/19/2008 White Blood Count 14.3 CUMM High 4.8-10.8 54 Red Cell Count 4.44 CUMM 4.2-5.4 54 Hemoglobin 12.4 g/dL 12.0-16.0 54 Hematocrit 37 % 35-47 54 Mean Corpuscular Volume 84 um3 79-97 54 Mean Corpuscular Hemoglob 28 pg 27-31 54 Mean Corpuscular HGB Cone 33 g/dL 32-36 54 Redcell Distribution WDTH 16 % High 10.5-15 54 Platelet Count 272 CUMM 150-450 54 Mean Platelet Volume 9.3 um3 7.4-10.4 54 Polysegmented Neutrophil 82 % 38-83 54 Band Neutrophil 3 % 0-8 54 Lymphocyte 11 % Low 25-47 54 Monocyte 3 % 0-13 54 Atypical Lymph 1 % 0-6 54 Absolute Neutrophil Count 12.1 54 Anisocytosis SLIGHT 54 Ovalocytes FEW 54 Surgical Pathology 07/18/2008 Surgical Pathology <SEE 58 NOTE> Basic Metabolic 07/13/2008 Sodium 137 mmol/L 135-145 Panel Potassium 3.9 mmol/L 3.5-5.0 Chloride 104 mmol/L 101-111 Co2 (Carbon Dioxide) 25.0 mmol/L 22-32 Anion Gap 8.0 mmol/L 2-11 59 Glucose 218 mg/dL High 70-100 60 BUN 11 mg/dL 6-24 Creatinine 0.60 mg/dL 0.50-1.40 One Over Creatinine 1.60 BUN/Creatinine Ratio 18.3 8-20 Calcium 9.5 mg/dL 8.1-9.9 61 Type And Screen 07/13/2008 Patient Blood Type A NEGATIVE Antibody Screen NEGATIVE Specimen Discard Date 07/27/08 62 Laboratory test finding 07/13/2008 PTT (Aptt) 21.1 20.1-28.2 63 CBC With Electronic Diff 07/13/2008 White Blood [...] 0.1 0-0.6 Abs Basophils 0.1 0-0.2 1 Transit 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: [id number] 2 Because ethnic data is not always readily [...] 15-29 5 Kidney failure <15 (or dialysis) 3 Because ethnic data is not always readily [...] 15-29 5 Kidney failure <15 (or dialysis) 4 Normal Range 180 to 914 Indeterminate Range 145 to 180 Deficient Range <145 5 Copy Result to: NIKITA FAIRBANKS ([id number]) 6 Acute inflammation: >10.00 7 Copy Result to: NIKITA FAIRBANKS ([id number]) 8 Copy Result to: NIKITA FAIRBANKS ([id number]) 9 Acute inflammation: >10.00 10 Please check labs one week before follow up 11 Because ethnic data is not always readily [...] 15-29 5 Kidney failure <15 (or dialysis) 12 Please check labs one week before follow up 13 Acute inflammation: >10.00 14 Because ethnic data is not always readily [...] 15-29 5 Kidney failure <15 (or dialysis) 15 Acute inflammation: >10.00 16 Please check labs this month 17 No interferon-gamma response to M. tuberculosis antigens was detected. Infection with M. tuberculosis is unlikely. A negative result alone does not exclude infection with M. tuberculosis. For detailed information regarding test interpretation see: [email or web address] [email or web address] 18 Test Performed by: [place] [address] Page Designer: Joaquin Desir II, M.D., Ph.D. 19 Acute inflammation: >10.00 20 Please check this week 21 Test Performed by: [place] [address] Page Designer: Joaquin Desir II, M.D., Ph.D. 22 Interpretation: Strong Positive (>=60.0) REFERENCE VALUE <20.0 (Negative) Test Performed by: [place] [address] Page Designer: Joaquin Desir II, M.D., Ph.D. 23 Because ethnic data is not always readily [...] 15-29 5 Kidney failure <15 (or dialysis) 24 Please check this week 25 Please check this week 26 Normal Range 180 to 914 Indeterminate Range 145 to 180 Deficient Range <145 27 Please check this week 28 Test Performed by: [place] [address] Page Designer: Joaquin Desir II, M.D., Ph.D. 29 Acute inflammation: >10.00 30 Standing orders q6-8 weeks or as directed 31 Because ethnic data is not always [...] 5 Kidney failure <15 (or dialysis) 32 Acute inflammation: >10.00 33 Because ethnic data is not always readily [...] 15-29 5 Kidney failure <15 (or dialysis) 34 Because ethnic data is not always readily [...] 15-29 5 Kidney failure <15 (or dialysis) 35 Desirable <150 Borderline high 150-199 High 200-499 Very High >500 36 Desirable <200 Borderline high 200-239 High >239 37 Low <40 Desirable: 40-60 High: >60 38 Desirable <100 Near Optimal 100-129 Borderline high 130-159 High 160-189 Very High >189 39 HDL Interpretation: Undesirable: High Risk: Less than 40 mg/dL Desirable: Low Risk: Greater than 60 mg/dL 40 LDL Interpretation: Low Risk Optimal Level: LDL Less than 100 mg/dL Near or Above Optimal: LDL 100-129 mg/dL Borderline High Risk: LDL 130-159 mg/dL High Risk: LDL 160-189 mg/dL Very High Risk: LDL Greater than 189 mg/dL 41 Microalbuminuria in a random sample is defined as: Microalbumin/Creatinine ratio of 30-299 ug/mg. 42 Because ethnic data is not always [...] 5 Kidney failure <15 (or dialysis) 48 Because ethnic data is not always readily [...] 15-29 5 Kidney failure <15 (or dialysis) 49 Because ethnic data is not always readily [...] 15-29 5 Kidney failure <15 (or dialysis) 50 Interpretation: Strong Positive (>=60.0) -- REFERENCE VALUE -- <20.0 (Negative) Test Performed by: [place] [address] Page Designer: Ricardo Fernandez III, M.D. 51 Test Performed by: [place] [address] Page Designer: Ricardo Fernandez III, M.D. 52 -- REFERENCE VALUE -- Not Applicable 53 HLA-B27 antigen was detected. Approximately 8% of the normal population carries the HLA-B27 antigen. HLA-B27 is present in approximately 89% of patients with ankylosing spondylitis, 79% of patients with Maria Luisa's syndrome and 42% of patients with juvenile rheumatoid arthritis. However, lacking other data, it is not diagnostic for these disorders. Method: Flow Cytometry Test Performed by: [facility] - [address] [address] Page Designer: Ricardo Fernandez III, M.D. 54 COMMENTS? N 55 Anion gap measurement may be of limited value in the presence of any alkalosis, especially in a combined acid base disorder. . 56 Note change in reference range as of 04/14/08. The change was based on recommendations from the [place] [employer]. 57 Please note change in reference range effective 08 . 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 Caustic Purification Operator sections, one cassette. 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 Signed Electronically by: SORAYA DAS 07/20/08 1556 -- -- DEPARTMENT OF PATHOLOGY, [address] [place] [address] [facility] Permit #[id number] Dhaval Horowitz M.D. Director Soraya Das M.D. Geophysical Drafter Dir kyung -- 59 Anion gap measurement may be of limited value in the presence of any alkalosis, especially in a combined acid base disorder. . 60 Note change in reference range as of 04/14/08. The change was based on recommendations from the [employer]. 61 Please note change in reference range effective 08 . 62 PREADMISSION TESTING SAMPLES FOR BLOOD BANK WILL [...] WITHIN 3 DAYS OF THE SURGERY DATE. 63 PLEASE NOTE NEW REFERENCE RANGE EFFECTIVE 08. Procedures Date CPT Code Description Status 05/26/2018 39687 Carpal Tunnel Release Completed 03/13/2018 19069 Nerve Conduction 03-04 Studies Completed 05/12/2017 44884 EEG Recording Awake & Drowsy Completed 03/10/2017 96907 ECHO Transthorasic Realtime 2D W Doppler & Color Flow Completed Hosp 04/08/2013 63344 Treadmill Interp/Report Only Completed 04/08/2013 07358 Stress Test Supervsn W/Out I/R Completed 01/29/2011 00687 Treadmill Interp/Report Only Completed 01/29/2011 60361 Stress Test Supervsn W/Out I/R Completed 07/18/2008 65551 Arthrodesis, Anterior Cervical C2 And Below Completed 07/18/2008 67126 Application Of Spinal Device Completed 07/18/2008 34913 Discectomy,W/Decomp SP Cord/Nerve Root;Cervical Single Completed Interspace 07/18/2008 05074 Discectomy,W/Decomp SP Cord/Nerve Root;Cervical Single Completed Interspace 04/21/2007 28536 Stress ECHO Interpretation/Report Hospital Completed 04/21/2007 24473 Stress ECHO Interpretation/Report Hospital Completed 04/21/2007 53575 Treadmill Interp/Report Only Completed 04/21/2007 07169 Stress Test Supervsn W/Out I/R Completed 04/21/2007 05331 Stress Test Supervsn W/Out I/R Completed Encounters Type Date Location Provider CPT E/M Dx Office Visit 05/11/2018 [facility] Sorin Thakur M.D. 34318 G56.01 9:00a Of [place] [facility] G56.01 Office Visit 04/23/2018 10:00a [facility] Fredrick Tijerina, 95966 G56.01 Services Of [place] [facility] M.D. G31.84 Office Visit 02/19/2018 11:00a Rheumatology [facility] Sarkis Riley 23987 M05.79 Of [place] [facility] M.D. Z79.899 M17.0 R20.8 Office Visit 02/09/2018 3:30p [facility] Fredrick Tijerina 64773 G31.84 Services Of [place] [facility] M.DJarett G47.10 R20.2 Office Visit 01/09/2018 11:00a [facility] Fredrick Tijerina, 55689 G31.84 Services Of [place] [facility] M.D. Office Visit 10/30/2017 10:15a [facility] Fredrick Tijerina 91303 G31.84 M.DJarett R53.82 G47.10 Office Visit 08/14/2017 10:00a Rhe[facility]ology Services Sarkis Riley 16626 M05.79 Of [place] [facility] M.D. Z79.899 M17.0 R20.8 Office Visit 05/23/2017 4:00p [facility] Fredrick Tijerina, 83484 R41.1 Services Of [place] [facility] M.D. Office Visit 05/09/2017 11:15a [facility] Fredrick Tijerina, 08873 R41.1 Services Of [place] [facility] M.D. R41.82 Office Visit 03/08/2017 2:30p [facility] He [place], 05020 R55 Hospitalists Thea,FACP E11.8 Z79.4 Office Visit 02/12/2017 10:00a [facility]ology [facility] Sarkis Riley 43233 M05.79 Of [place] [facility] M.D. Z79.899 M46.90 M17.0 Office Visit 11/12/2016 9:40a [facility] Sarkis Riley 80356 M05.79 Of [place] [facility] M.D. Z79.899 M46.90 M46.1 Office Visit 08/12/2016 9:40a [facility] Services Sarkis Riley 36929 M05.79 Of [place] [facility] M.D. Z79.899 M46.90 Office Visit 05/13/2016 11:40a [facility] Services Sarkis Riley 32124 M05.79 Of [place] [facility] M.D. Z79.899 M46.90 Office Visit 04/22/2016 9:40a [facility] Services Sarkis Riley 75600 M05.79 Of [place] [facility] M.D. Z79.899 M46.1 M54.5 Office Visit 02/21/2016 11:40a Rheumatology Services Sarkis Riley 16980 M05.79 Of Rubina M.D. Z79.899 R20.8 Office Visit 01/31/2016 10:20a Rheumatology Services Sarkis Riley 45183 M05.79 Of [place] [facility] M.D. Z79.899 R20.8 M46.1 M54.5 M89.419 E11.9 Office Visit 07/21/2013 1:20p Rheumatology Services Kwasi Lind M.D. 69427 714.0 Of [place] [facility] 730.26 720.9 V58.69 Office Visit 06/15/2013 9:40a [facility] Services Of JOAO Marx 65415 714.0 [place] Operator 720.9 730.26 V58.69 Office Visit 05/05/2013 1:20p [facility] Services Kwasi Lind M.D. 30613 714.0 Of [place] [facility] 720.9 V58.69 730.26 Office Visit 04/08/2013 1:30p [facility] Rei Santillan, 78485 786.50 MGerman 250.00 Office Visit 02/09/2013 1:40p [facility] Kwasi Lind M.D. 30569 714.0 Of [place] [facility] 720.9 V58.69 Office Visit 12/14/2012 1:00p Rheumatology Services Kwasi Lind M.D. 85314 714.0 Of [place] [facility] V58.69 Office Visit 11/02/2012 3:00p Rheumatology Services Kwasi Lind M.D. 15517 714.0 Of [facility] 795.79 V58.69 Office Visit 01/08/2012 1:40p Neurosurgery Services Gary Matias, 03652 724.2 Of [facility] AT [place] Thea 724.3 Office Visit 01/30/2009 10:40a [facility] Gary Matias, 75495 722.71 Of [facility] M.Juancho Office Visit 07/01/2008 11:00a [facility] Gary Matias, 63154 722.0 Of [facility] Thea Office Visit 04/21/2007 11:00a [facility] Qutaybeh S. 74633 401.0 Thea Sauceda 272.4 V72.81 Plan of Care Future Appointment(s):06/10/2018 2:20 pm - Sorin Thakur M.D. at [facility] Of [facility]07/27/2018 9:15 am - Fredrick Tijerina M.D. at [facility]11/19/2018 10:00 am - Sarkis Riley M.D. at [facility] Of [facility]06/03/2018 - Sorin Thakur M.D.Z48.89 Encounter for other specified surgical aftercareNew Medication:Levofloxacin 500 mgFollow up:1 week
--- OUTSIDE RECORDS SUMMARY | 2018-06-04 10:40 | XMS REPORT ---
:1950 External Reference #:[id number] Author Organization [employer] Address [address] [facility] [place] [address] Phone [phone] Care Team Providers Name Role Phone Nikita Fairbanks MD Primary Care Physician Unavailable Payers Type Date Identification Numbers Payment Provider Subscriber Health Maintenance Policy Number: Medicare Blue o Stacia Winn Mancuso Organization (O) [id number] PayID: [id number] [address] [address] [place] June [address] Medigap Part B Effective: 11/24/2011 Policy Number: Jeniffer Corky Mancuso [id number] Expires: 04/24/2018 PayID: [id number] [address] [address] [place] [address] Medigap Part B Expires: 04/24/2018 Policy Number: Medicare Staciamarilou Mancuso [id number] PayID: [id number] [address] [place] [address] Problems Date Description Provider Status Onset: 11/02/2012 Rheumatoid arthritis Kwasi Lind M.D. Active Onset: 11/02/2012 Immunological Findings Nonspec Other Kwasi Lind M.D. Active & Unspec Onset: 11/02/2012 Medications Conductor Pullman (Current) Use Kwasi Lind M.D. 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 17 Acute inflammation: >10.00 18 Please check this week 19 Test Performed by: [facility] [address] [place] [address] Saw Boss: Joaquin Desir II, M.D., Ph.D. 20 Interpretation: Strong Positive (>=60.0) REFERENCE VALUE <20.0 (Negative) Test Performed by: [facility] [address] [place] [address] Saw Boss: Joaquin Desir II, M.D., Ph.D. 21 Because [...] check this week 26 Test Performed by: [facility] [address] [place] [address] Saw Boss: Joaquin Desir II, M.D., Ph.D. 27 Acute [...] VALUE -- <20.0 (Negative) Test Performed by: [place] [address] Saw Boss: Ricardo Fernandez III, M.D. 49 Test Performed by: [place] [address] Saw Boss: Ricardo Fernandez III, M.D. 50 -- REFERENCE [...] disorders. Method: Flow Cytometry Test Performed by: [place] [address] Saw Boss: Ricardo Fernandez III, M.D. 52 COMMENTS? N 53 Anion gap measurement may be of limited value in the presence of any alkalosis, especially in a combined acid base disorder. . 54 Note change in reference range as of 04/14/08. The change was based on recommendations from the [place] [employer]. 55 Please note change in reference range effective 08 . 56 ---- RUN DATE: 07/20/08 [facility] NMI LIVE PAGE 1 RUN TIME: 1556 Specimen Inquiry RUN USER: INTERFACE -- Name: STACIA MANCUSO Accchapo#: [id number] Status: [facility] Re07/18/08 Age/Sex: 58/F Unit#: [id number] Location: [facility] : 54 -- Specimen: [id number] SOUT Spec Date: 07/18/[address]: Gary leung MD Spec Type: SURGICAL P Received: 07/19/08-1329 Copies to: SPECIMEN C5-6 DISC HISTORY PRE-OP DIAGNOSIS: C5-6 cord compression GROSS DESCRIPTION The specimen is received in formalin labelled Stacia Mancuso, C5-6 Disc, and consists of several fragments of mcgrath-brothers tissue, measuring in aggregate 1.7 x 1.5 x 0.5 cm. Soils Technician sections, one cassette. 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 Signed Electronically by: SORAYA DAS 07/20/08 1556 -- -- DEPARTMENT OF PATHOLOGY, [address] [place] [address] [facility] Permit #[id number] Dhaval Horowitz M.D. Director Soraya Das M.D. Tobacco Sizer Dir kyung -- 57 Anion gap measurement may be of limited value in the presence of any alkalosis, especially in a combined acid base disorder. . 58 Note change in reference range as of 04/14/08. The change was based on recommendations from the [place] [employer]. 59 Please note change in [...] Procedures Date CPT Code Description Status 03/13/2018 01820 Nerve Conduction 03-04 Studies Completed 05/12/2017 92290 EEG Recording Awake & Drowsy Completed 03/10/2017 22964 ECHO Transthorasic Realtime 2D W Doppler & Color Flow Completed Hosp 04/08/2013 05994 Treadmill Interp/Report Only Completed 04/08/2013 37610 Stress Test Supervsn W/Out I/R Completed 01/29/2011 67706 Treadmill Interp/Report Only Completed 01/29/2011 87815 Stress Test Supervsn W/Out I/R Completed 07/18/2008 14982 Discectomy,W/Decomp SP Cord/Nerve Root;Cervical Single Completed Interspace 07/18/2008 55504 Discectomy,W/Decomp SP Cord/Nerve Root;Cervical Single Completed Interspace 07/18/2008 35453 Application Of Spinal Device Completed 07/18/2008 38887 Arthrodesis, Anterior Cervical C2 And Below Completed 04/21/2007 47369 Stress ECHO Interpretation/Report Hospital Completed 04/21/2007 89230 Stress ECHO Interpretation/Report Hospital Completed 04/21/2007 99879 Treadmill Interp/Report Only Completed 04/21/2007 54986 Stress Test Supervsn W/Out I/R Completed 04/21/2007 15508 Stress Test Supervsn W/Out I/R Completed Encounters Type Date Location Provider CPT E/M Dx Office Visit 05/11/2018 [facility] Sorin Thakur M.D. 65948 G56.01 9:00a Of Rubina G56.01 Office Visit 04/23/2018 10:00a [facility] Fredrick Tijerina, 61069 G56.01 Services Of Rubina Sidhu G31.84 Office Visit 02/19/2018 11:00a Rheumatology Services Sarkis Riley, 75783 M05.79 Of Rubina Sidhu Z79.899 M17.0 R20.8 Office Visit 02/09/2018 3:30p [facility] Fredrick Tijerina, 72012 G31.84 Services Of Information Technology Data Analyst M.D. G47.10 R20.2 Office Visit 01/09/2018 11:00a [facility] Fredrick Tijerina, 45528 G31.84 Services Of Information Technology Data Analyst M.D. Office Visit 10/30/2017 10:15a [facility] Fredrick Tijerina, 07698 G31.84 M.D. R53.82 G47.10 Office Visit 08/14/2017 10:00a [facility]ology Services Sarkis Riley 81419 M05.79 Of Information Technology Data Analyst M.D. Z79.899 M17.0 R20.8 Office Visit 05/23/2017 4:00p [facility] Fredrick Tijerina, 80683 R41.1 Services Of Information Technology Data Analyst M.D. Office Visit 05/09/2017 11:15a [facility] Fredrick Tijerina, 23427 R41.1 Services Of Information Technology Data Analyst M.D. R41.82 Office Visit 03/08/2017 2:30p [facility] He Hunter, [address] R55 Hospitalists M.Juancho,FACP E11.8 Z79.4 Office Visit 02/12/2017 10:00a [facility]ology Services Sarkis Riley 36521 M05.79 Of Information Technology Data Analyst M.D. Z79.899 M46.90 M17.0 Office Visit 11/12/2016 9:40a [facility] Services Sarkis Riley 08622 M05.79 Of Information Technology Data Analyst M.D. Z79.899 M46.90 M46.1 Office Visit 08/12/2016 9:40a [facility] Services Sarkis Riley 99712 M05.79 Of Information Technology Data Analyst M.D. Z79.899 M46.90 Office Visit 05/13/2016 11:40a Rhe[facility]ology Services Sarkis Riley 01041 M05.79 Of Information Technology Data Analyst M.D. Z79.899 M46.90 Office Visit 04/22/2016 9:40a [facility] Services Sarkis Riley 83123 M05.79 Of Information Technology Data Analyst M.D. Z79.899 M46.1 M54.5 Office Visit 02/21/2016 11:40a Rheumatology Services Sarkis Riley 64893 M05.79 Of [facility] M.D. Z79.899 R20.8 Office Visit 01/31/2016 10:20a Rheumatology Services Sarkis Qureshicarrol 82080 M05.79 Of Information Technology Data Analyst Hal.D. Z79.899 R20.8 M46.1 M54.5 M89.419 E11.9 Office Visit 07/21/2013 1:20p Rheumatology Services Kwasi Lind M.D. 33799 714.0 Of [facility] 730.26 720.9 V58.69 Office Visit 06/15/2013 9:40a Rheumatology Services Of Carlos Dempsey, [facility] [address]235 714.0 Information Technology Data Analyst 720.9 730.26 V58.69 Office Visit 05/05/2013 1:20p [facility]ology Services Kwasi Lind M.D. 81836 714.0 Of [facility] 720.9 V58.69 730.26 Office Visit 04/08/2013 1:30p [facility] Rei Santillan, 34327 786.50 Thea 250.00 Office Visit 02/09/2013 1:40p Rhe[facility]ology Services Kwasi Lind M.D. 27597 714.0 Of Information Technology Data Analyst 720.9 V58.69 Office Visit 12/14/2012 1:00p Rhe[facility]ology Services Kwasi Lind M.D. 27045 714.0 Of Information Technology Data Analyst V58.69 Office Visit 11/02/2012 3:00p Rhe[facility]ology Services Kwasi Lind M.D. 03558 714.0 Of [facility] 795.79 V58.69 Office Visit 01/08/2012 1:40p Neurosurgery Services Gary Matias 12636 724.2 Of [facility] AT [place] Thea 724.3 Office Visit 01/30/2009 10:40a [facility] Gary Maitas 07893 722.71 Of [facility] M.DJarett Office Visit 07/01/2008 11:00a [facility] Services Gary Matias 36534 722.0 Of [facility] M.DJarett Office Visit 04/21/2007 11:00a [facility] Aldo Chan 98350 401.0 Thea Sauceda 272.4 V72.81 Plan of Care Future Appointment(s):07/27/2018 9:15 am - Fredrick Tijerina M.D. at [facility]11/19/2018 10:00 am - Sarkis Riley M.D. at [facility] Of [facility]05/11/2018 - Sorin Thakur M.D.G56.01 Carpal tunnel syndrome, right upper limbG56.01 Carpal tunnel syndrome, right upper limb
[2018-06-04 10:48] VITALS: BP 157/77
--- NOTE | 2018-06-04 11:09 | UC ---
Skin Complaint HPI - HPI Summary HPI Summary: 68 y/o female with PMH sig for IDDM presents with open wound s/p R CTR 05/26/2018 , with sutures removed at 's office on 06/03/2018. Patient noted bottom part of wound opened this AM with discharge noted no fever, pain only around wound opening. Continued numbness/ tingling of finger tips despite R CTR , but no change since surgery. no other feeling ill. - History of Current Complaint Chief Complaint: UCUpperExtremity Time Seen by Provider: 06/04/18 10:51 Stated Complaint: HAND PAIN Hx Obtained From: Patient Hx Last Menstrual Period: n/a ?: No Onset Severity: Mild Current Severity: Mild Pain Intensity: 8 Pain Scale Used: 0-10 Numeric Location: Hand (Right) Character: Swelling, Redness, Painful - Allergy/Home Medications Allergies/Adverse Reactions: Allergies Allergy/AdvReac Type Severity Reaction Status Date / Time clonazepam Allergy Unknown Verified 06/04/18 10:49 Reaction Details Penicillins Allergy Rash Verified 06/04/18 10:49 Sulfa (Sulfonamide Allergy Rash Verified 06/04/18 10:49 Antibiotics) sulfamethoxazole Allergy Rash Verified 06/04/18 10:49 [From Bactrim] trimethoprim [From Bactrim] Allergy Rash Verified 06/04/18 10:49 Review of Systems Skin: Other - wound opening at base Musculoskeletal: Edema Is Patient Immunocompromised?: No All Other Systems Reviewed And Are Negative: Yes PMH/Surg Hx/FS Hx/Imm Hx Previously Healthy: No Endocrine History: Diabetes - IDDM - Surgical History Surgical History: Yes Surgery Procedure, Year, and Place: hysterectomy 1986 - [facility] [place]. [place] knee [place]. right knee replacement - [place]. right knee infection, had to have 2nd replacement - [place]. neck fusion - [facility] [place]. bilateral catarct extraction with IOL's. thyroglossal cyst removal - Family History Known Family History: Positive: None Negative: Cardiac Disease Family History: no cardio vascular issues in family lineage - Social History Alcohol Use: None Substance Use Type: None Smoking Status (MU): Never Smoked Tobacco Household Exposure Type: Cigarettes - Immunization History Most Recent Influenza Vaccination: Fall 2015 Most Recent [place] [facility] Recent Pneumonia Vaccination: July 2016 Physical Exam Triage Information Reviewed: Yes Appearance: Well-Appearing, No Pain Distress, Well-Nourished Vital Signs: Initial Vital Signs Temp 98 F 06/04/18 10:45 Pulse 68 06/04/18 10:45 Resp 16 06/04/18 10:45 BP 157/77 06/04/18 10:45 Pulse Ox 98 06/04/18 10:45 Vital Signs Reviewed: Yes Eye Exam: Normal Musculoskeletal: Positive: Strength Intact, ROM Intact, Other: - No TTP over all joints, full ROM, no evidence for deep infection Skin: Positive: Other - superficial wound dehisence on proximal insicsion site, minimal yellow thick drainage noted, erythema over approximately 1 cm, tender to palpation. area cleaned well, no futher opening Course/Dx - Course Course Of Treatment: appt to follow up with Dr. Thakur for eval tomorrow, call placed to his PA to inform about situation, abx given, area marked. - Differential Diagnoses - Skin Complaint Differential Diagnoses: Cellulitis - Diagnoses Provider Diagnoses: cellulitis Discharge - Sign-Out/Discharge Documenting (check all that apply): Patient Departure All imaging exams completed and their final reports reviewed: No Studies - Discharge Plan Condition: Good Disposition: HOME Prescriptions: DOXYcycline CAP(*) [DOXYcycline 100MG CAP(*)] 100 mg PO BID #20 cap Patient Education Materials: Cellulitis (DC) Referrals: Nikita Fairbanks MD [Primary Care Provider] - Additional Instructions: - ANtibiotics as directed - FOllow up with Dr. Nevarez office tomorrow at 9:20AM - keep bandage on until appointment - Go to ER with increased pain, swelling, joint pain, or fever - Billing Disposition and Condition Condition: GOOD Disposition: Home
== END 2018-06-04 11:30 | disposition home or self-care (01) ==
LOC: UCEAST 10:32
DX: L03.113 Cellulitis of right upper limb (principal); Z96.653 Presence of artificial knee joint, bilateral; Z88.0 Allergy status to penicillin; Z88.2 Allergy status to sulfonamides; Z88.8 Allergy status to other drugs, medicaments and biological substances
CPT/HCPCS: 99212; G0463

== ENCOUNTER 2018-06-05 11:19 | Inpatient (IN) | payer BC, MEDICARE ==
--- OUTSIDE RECORDS SUMMARY | 2018-06-05 12:09 | XMS REPORT ---
:1950 External Reference #:[id number] Author Organization [facility] [employer] [employer] Address [address] [facility] [place] [address] [place] [address] Phone [phone] Care Team Providers Name Role Phone Fredrick Tijerina M.D. Care Team Information Crew Clerk Unavailable Nikita Fairbanks MD Primary Care Physician Unavailable Payers Type Date Identification Payment Subscriber Numbers Provider Health Maintenance Effective: Policy Number: Medicare Blue Stacia Mancuso Organization (O) 03/25/2018 [id number] Ppo PayID: [id number] [address] [address] [place] June [address] Medigap Part B Effective: 11/24/2011 Policy Number: Jeniffer Corky Mancuso [id number] Expires: 04/24/2018 PayID: [id number] [address] [address] [place] June [address] Medigap Part B Expires: 04/24/2018 Policy Number: Medicare Stacia Mancuso [id number] PayID: [id number] [address] [place] [address] Problems Date Description Provider Status Onset: 11/02/2012 Rheumatoid arthritis Kwasi Lind M.D. Active Onset: 11/02/2012 Immunological Findings Nonspec Other Kwasi Lind M.D. Active & Unspec Onset: 11/02/2012 Medications Detention (Current) Use Kwasi Lind M.D. Active Encounter [...] Lives With Occupation Currently Working Has a [employer] ETOH Use Rarely consumes alcohol Smoking Patient [...] 10tab 1 PO Z48.89 s daily x [place], 10 days M.DJarett Rivastigmine 04/23 Active Capsules 3mg 180ca 1 by trisha ps mouth Thea Tijerina twice a day Memantine HCL 01/09 Active Tablets 10mg 60tab one s tablet Thea Tijerina twice a day Hydroxychloroquin 10/27 Active Tablets 200mg 180ta Take One Sarkis Perez bs Tablet By Thea Riley Mouth Two [...] day Gabapentin Active Capsules 300mg 1 by Resendiz, / mouth two FAMILIA NuñezP times a [...] Fast Dissolve Hx Tablets 5000mcg sl daily Dispers - 10/29 Famotidine Hx Tablets 10mg one by Unknown /0000 mouth - twice a Lantus Hx Solution 38-40Unit inject Unknown /0000 s 38-40 - units 04/22 subQ every day in in the morning Hydroxxchloroquin Hx 200mg one tab Sarkis e /0000 by rene Riley M.D. - twice a Vital Signs Date Vital Result Comment 06/03/2018 [...] 0.1 0-0.6 Abs Basophils 0.1 0-0.2 1 Surgical Scheduler: [id number] 2 Because ethnic data is not always [...] <145 5 Copy Result to: NIKITA FAIRBANKS ([id number]) 6 Acute inflammation: >10.00 7 Copy Result to: NIKITA FAIRBANKS ([id number]) 8 Copy Result to: NIKITA FAIRBANKS ([id number]) 9 Acute inflammation: >10.00 10 Please check [...] For detailed information regarding test interpretation see: www.texicoQCoefficient.[employer] [place]/test-catalog/ Clinical+and+Interpretive/94751 18 Test Performed by: [place] [address] Foot Caster: Joaquin Desir II, M.D., Ph.D. 19 Acute inflammation: >10.00 20 Please check this week 21 Test Performed by: [place] [address] Foot Caster: Joaquin Desir II, M.D., Ph.D. 22 Interpretation: Strong Positive (>=60.0) REFERENCE VALUE <20.0 (Negative) Test Performed by: [place] [address] Foot Caster: Joaquin Desir II, M.D., Ph.D. 23 Because [...] check this week 28 Test Performed by: [place] [address] Foot Caster: Joaquin Desir II, M.D., Ph.D. 29 Acute [...] VALUE -- <20.0 (Negative) Test Performed by: [place] [address] Foot Caster: Ricardo Fernandez III, M.D. 51 Test Performed by: [place] [address] Foot Caster: Ricardo Fernandez III, M.D. 52 -- REFERENCE [...] disorders. Method: Flow Cytometry Test Performed by: [facility] - [address] [address] Foot Caster: Ricardo Fernandez III, M.D. 54 COMMENTS? N 55 Anion gap measurement may be of limited value in the presence of any alkalosis, especially in a combined acid base disorder. . 56 Note change in reference range as of 04/14/08. The change was based on recommendations from the [place] [employer]. 57 Please note change in reference range effective 08 . 58 ---- RUN DATE: 07/20/08 [facility] NMI LIVE PAGE 1 RUN TIME: 1556 Specimen Inquiry RUN USER: INTERFACE -- [id number] Status: [facility] Re07/18/08 Age/Sex: 58/F Unit#: [id number] Location: [facility] : 52 -- Specimen: [id number] SOUT Spec Date: 07/18/[address]: Gary leung MD Spec Type: SURGICAL P Received: 07/19/08-1325 Copies to: SPECIMEN C5-6 DISC HISTORY PRE-OP DIAGNOSIS: C5-6 cord compression GROSS DESCRIPTION The specimen is received in formalin labelled Stacia WinnJarett Mancuso, C5-6 Disc, and consists of several fragments of mcgrath-brothers tissue, measuring in aggregate 1.7 x 1.5 x 0.5 cm. Sql Server Dba Developer sections, one cassette. 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 Signed Electronically by: SORAYA ADS 07/20/08 1556 -- -- DEPARTMENT OF PATHOLOGY, [address] [place] [address] [facility] Permit #[id number] Dhaval Horowitz M.D. Director Soraya Das M.D. Wildlife Policy Professional Dir kyung -- 59 Anion gap measurement may be of limited value in the presence of any alkalosis, especially in a combined acid base disorder. . 60 Note change in reference range as of 04/14/08. The change was based on recommendations from the [place] [employer]. 61 Please note change in [...] Procedures Date CPT Code Description Status 05/26/2018 96530 Carpal Tunnel Release Completed 03/13/2018 11795 Nerve Conduction 03-04 Studies Completed 05/12/2017 32121 EEG Recording Awake & Drowsy Completed 03/10/2017 75356 ECHO Transthorasic Realtime 2D W Doppler & Color Flow Completed Hosp 04/08/2013 54811 Treadmill Interp/Report Only Completed 04/08/2013 94528 Stress Test Supervsn W/Out I/R Completed 01/29/2011 20906 Treadmill Interp/Report Only Completed 01/29/2011 67103 Stress Test Supervsn W/Out I/R Completed 07/18/2008 82636 Arthrodesis, Anterior Cervical C2 And Below Completed 07/18/2008 46475 Application Of Spinal Device Completed 07/18/2008 27718 Discectomy,W/Decomp SP Cord/Nerve Root;Cervical Single Completed Interspace 07/18/2008 59865 Discectomy,W/Decomp SP Cord/Nerve Root;Cervical Single Completed Interspace 04/21/2007 24833 Stress ECHO Interpretation/Report Hospital Completed 04/21/2007 93750 Stress ECHO Interpretation/Report Hospital Completed 04/21/2007 93223 Treadmill Interp/Report Only Completed 04/21/2007 34784 Stress Test Supervsn W/Out I/R Completed 04/21/2007 12298 Stress Test Supervsn W/Out I/R Completed Encounters Type Date Location Provider CPT E/M Dx Office Visit 05/11/2018 [facility] Sorin Thakur M.D. 96269 G56.01 9:00a Of Medical Scientist G56.01 Office Visit 04/23/2018 10:00a [facility] Fredrick Tijerina, 77123 G56.01 Services Of Medical Scientist M.D. G31.84 Office Visit 02/19/2018 11:00a [facility] Services Sarkis Riley 65266 M05.79 Of Medical Scientist M.D. Z79.899 M17.0 R20.8 Office Visit 02/09/2018 3:30p [facility] Fredrick Tijerina, 70199 G31.84 Services Of Medical Scientist M.D. G47.10 R20.2 Office Visit 01/09/2018 11:00a [facility] Fredrick Tijerina, 97292 G31.84 Services Of Medical Scientist M.D. Office Visit 10/30/2017 10:15a [facility] Fredrick Tijerina, 96490 G31.84 M.D. R53.82 G47.10 Office Visit 08/14/2017 10:00a Rheumatology Services Sarkis Riley 60725 M05.79 Of Medical Scientist M.D. Z79.899 M17.0 R20.8 Office Visit 05/23/2017 4:00p [facility] Fredrick Tijerina, 29529 R41.1 Services Of Medical Scientist M.D. Office Visit 05/09/2017 11:15a [facility] Fredrick Tijerina, 58306 R41.1 Services Of Medical Scientist M.D. R41.82 Office Visit 03/08/2017 2:30p [facility] He [place], 69369 R55 Hospitalists Thea,FACP E11.8 Z79.4 Office Visit 02/12/2017 10:00a [facility]umatology Services Sarkis Riley 47411 M05.79 Of Medical Scientist M.D. Z79.899 M46.90 M17.0 Office Visit 11/12/2016 9:40a [facility] Sarkis Riley 50197 M05.79 Of Medical Scientist M.D. Z79.899 M46.90 M46.1 Office Visit 08/12/2016 9:40a [facility] Services Sarkis Riley 39670 M05.79 Of Medical Scientist M.D. Z79.899 M46.90 Office Visit 05/13/2016 11:40a [facility]umatology Services Sarkis Riley 12390 M05.79 Of Medical Scientist M.D. Z79.899 M46.90 Office Visit 04/22/2016 9:40a [facility] Services Sarkis Riley 43171 M05.79 Of Medical Scientist M.D. Z79.899 M46.1 M54.5 Office Visit 02/21/2016 11:40a [facility] Services Sarkis Riley 71136 M05.79 Of Medical Scientist M.D. Z79.899 R20.8 Office Visit 01/31/2016 10:20a [facility]ology Services Sarkis Riley 30427 M05.79 Of Medical Scientist M.D. Z79.899 R20.8 M46.1 M54.5 M89.419 E11.9 Office Visit 07/21/2013 1:20p Rhe[facility] Services Kwasi Lind M.D. 48915 714.0 Of Medical Scientist 730.26 720.9 V58.69 Office Visit 06/15/2013 9:40a [facility] Services Of JOAO Marx 08741 714.0 Medical Scientist 720.9 730.26 V58.69 Office Visit 05/05/2013 1:20p [facility]ology Services Kwasi Lind M.D. 50155 714.0 Of Medical Scientist 720.9 V58.69 730.26 Office Visit 04/08/2013 1:30p [facility] Rei Santillan, 19581 786.50 MJarettDJarett 250.00 Office Visit 02/09/2013 1:40p [facility]ology Services Kwasi Lind M.D. 13900 714.0 Of Medical Scientist 720.9 V58.69 Office Visit 12/14/2012 1:00p [facility] Services Kwasi Lind M.D. 47924 714.0 Of Medical Scientist V58.69 Office Visit 11/02/2012 3:00p [facility] Services Kwasi Lind M.D. 22447 714.0 Of Medical Scientist 795.79 V58.69 Office Visit 01/08/2012 1:40p Neurosurgery Services Gary Matias, 70778 724.2 Of [facility] AT [place] Thea 724.3 Office Visit 01/30/2009 10:40a [facility] Services Gary Matias, 25948 722.71 Of Rubina Sidhu Office Visit 07/01/2008 11:00a [facility]surgery Services Gary Matias, 51827 722.0 Of [facility] Thea Office Visit 04/21/2007 11:00a [facility] Qutayb S. 49665 401.0 Thea Sauceda 272.4 V72.81 Plan of Care Future Appointment(s):07/27/2018 9:15 am - Fredrick Tijerina M.D. at [facility]11/19/2018 10:00 am - Sarkis Riley M.D. at [facility]06/05/2018 - LUIS MANUEL Gallo-CZ48.89 Encounter for other specified surgical aftercareFollow up:Pt to be admitted by hospitalist.
[2018-06-05] MEDS ORDERED: Vancomycin(*) 1,500 MG in NS 0.9% 500 ML* 500 ML IVPB ONE (13:30)
[2018-06-05] MEDS ORDERED: Diclofenac 1% GEL (NF) 100 GM TUBE TOPICAL PRN (13:32)
[2018-06-05] MEDS ORDERED: Dextrose 50% Syringe 50 ML* 25 GM/50 ML SYRINGE IV PUSH PRN (13:42)
--- NOTE | 2018-06-05 13:53 | ADMNOTE ---
Subjective Date of Service: 06/05/18 Interval History: ADMISSION HISTORY AND PHYSICAL EXAM: Allergies Allergy/AdvReac Type Severity Reaction Status Date / Time clonazepam Allergy Unknown Verified 06/04/18 10:49 Reaction Details Penicillins Allergy Rash Verified 06/04/18 10:49 Sulfa (Sulfonamide Allergy Rash Verified 06/04/18 10:49 Antibiotics) sulfamethoxazole Allergy Rash Verified 06/04/18 10:49 [From Bactrim] trimethoprim [From Bactrim] Allergy Rash Verified 06/04/18 10:49 Home Medications Medication Instructions Recorded Confirmed Type Insulin Glargine,Hum.rec.anlog 38 units SUBCUT QAM 04/08/13 06/04/18 History [Lantus] Amlodipine Besylate [Norvasc 10 mg 10 mg PO QAM 02/07/15 06/04/18 History tab] Candesartan Cilexetil [Atacand] 32 mg PO QAM 02/07/15 06/04/18 History Cholecalciferol (Vitamin D3) 1,000 unit PO QAM 03/08/17 06/04/18 History [Vitamin D3] Hydroxychloroquine TAB* [Plaquenil 200 mg PO BID 03/08/17 06/04/18 History TAB*] [place]-3/Dha/Epa/Fish Oil [Fish Oil 1,000 mg PO BID 03/08/17 06/04/18 History 1,000 mg Softgel] Diclofenac 1% GEL (NF) [Voltaren 1 applic TOPICAL BID PRN 05/19/18 06/04/18 History 1% GEL (NF)] Gabapentin [Neurontin] 300 mg PO BID 05/19/18 06/04/18 History Memantine HCl 10 mg PO BID 05/19/18 06/04/18 History Repaglinide TAB* [Prandin TAB*] 1 mg PO TID WITH MEALS 05/19/18 06/04/18 History Rivastigmine CAP(NF) [Exelon (NF)] 3 mg PO BID 05/19/18 06/04/18 History Vitamin B Complex [Ultra B-100 1 each PO QAM 05/19/18 06/04/18 History Complex] Hydrocodone/Acetaminophen [[place] 1 each PO Q4H PRN #6 tablet MDD 6 05/26/1807/12 Rx 5-325 Tablet] DOXYcycline CAP(*) [DOXYcycline 100 mg PO BID #20 cap 06/04/18 Rx 100MG CAP(*)] HPI: The patient had R CTR 05/26/18. She was recovering well until shortly before she saw Dr. Thakur on 06/03/18. She had developed a "spot" on the surgical wound. Dr. Thakur prescribed levofloxacin. Yesterday the wound looked worse and the patient went to Urgent Care. They arranged for her to see LUIS MANUEL Garrett in Dr. Thakur's office today, and she was referred here for direct admission. Mild wound pain. No chills or sweats. Family History: Findings - heart disease, DM Social History: Findings - Never smoked. No alcohol abuse. Lives with her second who is her SDM. 3 children from her first marriage. Past Medical History: Unchanged from Admission - dementia, RA, DM, HTN, PA, hysterectomy, thyroglossal cyst sx, TKA x 4, CTR R Review of Systems - Review of Systems Constitutional Symptoms: Negative: Weight Gain, Weight Loss, Weakness, Fatigue, Fever, Night Sweats, Unexplained Falls, Other Dermatology: Positive: Normal HEENT: Positive: Normal Eyes: Positive: Normal Thyroid: Positive: Normal Pulmonary: Positive: Normal Cardiology: Positive: Normal Gastroenterology: Positive: Normal Genital - Urinary: Positive: Normal Musculoskeletal: Positive: Joint Pain Endocrinology: Positive: Diabetes Mellitus Hematologic/Lymphatic: Negative: Anemia, Easy Brusing, Hx Leukemia, Hx Lymphoma, Use of Anticoagulant, Use of Antiplatelet Drugs, Other Neurology: Positive: Change in Memory Psychiatry: Negative: Normal, Depression, Anxiety, Depressed Mood, Adhedonia, Sexual Dysfunction, Weight Change, Guilt Feelings, Tearfulness, Unusual Fatigue, Unusual Anxiety, Suicidal Ideation, Hypomania, Eating Disorders, Other Allergic/Immunologic: Negative: Hx Anaphylaxis, Hx Angioedema, Hx Environmental, Hx Seasonal, Athsma, Hx HIV, Immunocompromise, Swollen Glands LymphNodes, Other Objective Active Medications: Cholecalciferol (Vitamin D Tab*) 1,000 units PO QAM [place] Dextrose (D50w Syringe 50 Ml*) 12.5 gm IV PUSH .FOR FS < 60 - SS PRN PRN Reason: FS < 60 Diclofenac Sodium (Voltaren 1% Gel (Nf)) 1 applic TOPICAL BID PRN; Protocol PRN Reason: bilateral hand pain Enoxaparin Sodium (Lovenox(*)) 40 mg SUBCUT Q24H [facility] Hydroxychloroquine Sulfate (Plaquenil Tab*) 200 mg PO BID [facility] Vancomycin HCl 1,500 mg/ (Sodium Chloride) 500 mls @ 333.333 mls/hr IVPB ONCE ONE; Protocol Stop: 06/05/18 14:59 Insulin Glargine (Lantus(*)) 32 units SUBCUT Q24H [facility] Insulin Human Lispro (Humalog*) 0 units SUBCUT ACHS [facility]; Protocol Memantine (Namenda Tab*) 10 mg PO BID [facility] Non-Formulary Medication (Amlodipine Besylate [Norvasc 10 Mg Tab]) 10 mg PO QAM [facility] Non-Formulary Medication (Candesartan Cilexetil [Atacand]) 32 mg PO QAM [facility] Pharmacy Consult (Vancomycin Per Pharmacy*) 1 note FOLLOW UP .VANC PER PHARMACY [facility] Repaglinide (Prandin Tab*) 1 mg PO TID WITH MEALS [facility] Rivastigmine Tartrate (Exelon (Nf)) 3 mg PO BID [facility] Sertraline HCl (Zoloft*) 50 mg PO DAILY [facility] Oxygen Devices in Use Now: None Appearance: Alert, partly up in bed. In good spirits. Looks comfortable. Eyes: No Scleral Icterus Ears/Nose/Mouth/Throat: Clear Oropharnyx, Mucous Membranes Moist Neck: NL Appearance and Movements; NL JVP, No Thyroid Enlargement, Masses Respiratory: Symmetrical Chest Expansion and Respiratory Effort, Clear to Auscultation, Clear to Percussion Cardiovascular: NL Sounds; No Murmurs; No JVD, RRR, No Edema, - Abdominal: NL Sounds; No Tenderness; No Distention, No Hepatosplenomegaly, - Extremities: No Edema, No Clubbing, Cyanosis Skin: No Nodules or Sclerosis, - - R wrist CTR wound sl gaping, sl red, sl moist , white probably necrotic skin on edges Neurological: NL Sensation - GALVAN. Can answer most questions about her medical hx and care. Assess/Plan/Problems-Billing Assessment: - Patient Problems (1) Wound infection Current Visit: Yes Status: Acute Code(s): T14.8XXA - OTHER INJURY OF UNSPECIFIED BODY REGION, INITIAL ENCOUNTER; L08.9 - LOCAL INFECTION OF THE SKIN AND SUBCUTANEOUS TISSUE, UNSP SNOMED Code(s): 33806186 Comment: Start vancomycin. Surface C&S sent. Consider discharge on oral linezolid when clear she is improving--would then discharge on 1/4 her home dose sertraline. (2) Rheumatoid arthritis Current Visit: No Status: Chronic Code(s): M06.9 - RHEUMATOID ARTHRITIS, UNSPECIFIED SNOMED Code(s): 69773676 Comment: Continue hydroxychloroquine. 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 Reduce dose. Lispro by SS. Continue repaglinide if available. (4) Essential hypertension Current Visit: No Status: Chronic Code(s): I10 - ESSENTIAL (PRIMARY) HYPERTENSION SNOMED Code(s): 15148828 Comment: Continue amlodipine, valsartan. (5) Memory impairment Current Visit: No Status: Chronic Code(s): R41.3 - OTHER AMNESIA SNOMED Code(s): 239259502 Comment: Mild dementia. Continue home dementia meds. Sertraline halved, will reduce further when/if starting linezolid.
[2018-06-05] MEDS ORDERED: Vancomycin per Pharmacy* NOTE FOLLOW UP SCH (14:00)
[2018-06-05] MEDS ORDERED: Vancomycin Trough Check NOTE FOLLOW UP ONE (14:00)
[2018-06-05] MEDS ORDERED: Acetaminophen TAB* 325 MG PO PRN (14:08)
[2018-06-05 14:40] LABS: ABS Basophils 0 10^3/ul (0-0.2); ABS Eosinophils 0.2 10^3/ul (0-0.6); ABS Lymphocytes 1.8 10^3/ul (1.0-4.8); ABS Monocytes 0.7 10^3/ul (0-0.8); ABS Neutrophils 5.5 10^3/ul (1.5-7.7); ABS Nucleated RBC 0 10^3/ul; Eosinophil % 2.4 % (0-6); Hematocrit 38 % (35-47); Hemoglobin 12.6 g/dl (12.0-16.0); Lymphocyte % 22.2 % (25-47); Mean Corpuscular HGB Conc 34 g/dl (31-36); Mean Corpuscular Hemoglobin 29 pg (27-31); Mean Corpuscular Volume 87 fL (80-97); Mean Platelet Volume 8.3 um3 (7.4-10.4); Nucleated Red Blood Cells % 0.1; Platelet Count 235 10^3/ul (150-450); Red Blood Count 4.36 10^6/ul (4.00-5.40); Red Cell Distribution Width 15 % (10.5-15); White Blood Count 8.2 10^3/ul (3.5-10.8)
[2018-06-05] MEDS: Sertraline* 50 MG TAB PO SCH (14:41)
[2018-06-05] MEDS: Enoxaparin(*) 40 MG/0.4 ML SYR SUBCUT SCH (14:42)
[2018-06-05 14:56] LABS: EGFR Non-African American 70.7 (>60)
[2018-06-05] MEDS: Insulin LISPRO* 1 UNITS UNIT SUBCUT SCH ×2 (17:39→21:11)
[2018-06-05] MEDS: Repaglinide TAB* 1 MG PO SCH (17:40)
[2018-06-05] MEDS: Memantine TAB* 10 MG PO SCH (20:56)
[2018-06-05] MEDS: Hydroxychloroquine TAB* 200 MG PO SCH (20:56)
[2018-06-05] MEDS: RIVASTIGMINE 3 MG PO SCH (21:04)
[2018-06-05] MEDS: Vancomycin(*) 1,000 MG in NS 0.9% 250 ML* 250 ML IVPB SCH (22:23)
[2018-06-06] MEDS: Vancomycin(*) 1,000 MG in NS 0.9% 250 ML* 250 ML IVPB SCH ×3 (06:13→22:41)
[2018-06-06] MEDS: Insulin LISPRO* 1 UNITS UNIT SUBCUT SCH ×4 (07:59→21:37)
[2018-06-06] MEDS: amLODIPine TAB* 5 MG PO SCH (08:56)
[2018-06-06] MEDS: Memantine TAB* 10 MG PO SCH ×2 (08:56→21:37)
[2018-06-06] MEDS: Hydroxychloroquine TAB* 200 MG PO SCH ×2 (08:56→21:37)
[2018-06-06] MEDS: Sertraline* 50 MG TAB PO SCH (08:56)
[2018-06-06] MEDS: Valsartan TAB* 160 MG PO SCH (08:56)
[2018-06-06] MEDS: Repaglinide TAB* 1 MG PO SCH ×3 (08:56→17:42)
[2018-06-06] MEDS: Insulin GLARGINE(*) 1 UNITS UNIT SUBCUT SCH (08:56)
[2018-06-06] MEDS: Cholecalciferol TAB* 1000 UNITS PO SCH (08:56)
[2018-06-06] MEDS: RIVASTIGMINE 3 MG PO SCH ×2 (08:57→21:37)
--- NOTE | 2018-06-06 09:05 | PN ---
Subjective Date of Service: 06/06/18 Interval History: No pain. No chills or sweats. No bowel c/o. Appetite OK. No new c/o. Family History: Findings - heart disease, DM Social History: Findings - Never smoked. No alcohol abuse. Lives with her second who is her SDM. 3 children from her first marriage. Past Medical History: Unchanged from Admission - dementia, RA, DM, HTN, PA, hysterectomy, thyroglossal cyst sx, TKA x 4, CTR R Objective Active Medications: Acetaminophen (Tylenol Tab*) 650 mg PO Q4H PRN PRN Reason: PAIN Last Admin: 06/05/18 21:15 Dose: 650 mg Amlodipine Besylate (Norvasc Tab*) 10 mg PO QAM [facility] Last Admin: 06/06/18 08:56 Dose: 10 mg Cholecalciferol (Vitamin D Tab*) 1,000 units PO QAM [facility] Last Admin: 06/06/18 08:56 Dose: 1,000 units Dextrose (D50w Syringe 50 Ml*) 12.5 gm IV PUSH .FOR FS < 60 - SS PRN PRN Reason: FS < 60 Diclofenac Sodium (Voltaren 1% Gel (Nf)) 1 applic TOPICAL BID PRN; Protocol PRN Reason: bilateral hand pain Enoxaparin Sodium (Lovenox(*)) 40 mg SUBCUT Q24H [facility] Last Admin: 06/05/18 14:42 Dose: 40 mg Hydroxychloroquine Sulfate (Plaquenil Tab*) 200 mg PO BID [facility] Last Admin: 06/06/18 08:56 Dose: 200 mg Vancomycin HCl 1,000 mg/ (Sodium Chloride) 250 mls @ 166.667 mls/hr IVPB Q8H [facility] Last Admin: 06/06/18 06:13 Dose: 166.667 mls/hr Insulin Glargine (Lantus(*)) 32 units SUBCUT Q24H [facility] Last Admin: 06/06/18 08:56 Dose: 32 units Insulin Human Lispro (Humalog*) 0 units SUBCUT ACHS [facility]; Protocol Last Admin: 06/06/18 07:59 Dose: Not Given Memantine (Namenda Tab*) 10 mg PO BID [facility] Last Admin: 06/06/18 08:56 Dose: 10 mg Pharmacy Consult (Vancomycin Per Pharmacy*) 1 note FOLLOW UP .VANC PER PHARMACY [facility] Pharmacy Profile Note (Vancomycin Trough Check) 1 note FOLLOW UP .ENTER TIME ONE Stop: 06/06/18 14:01 Repaglinide (Prandin Tab*) 1 mg PO TID WITH MEALS [facility] Last Admin: 06/06/18 08:56 Dose: 1 mg Rivastigmine Tartrate (Exelon (Nf)) 3 mg PO BID [facility] Last Admin: 06/06/18 08:57 Dose: Not Given Sertraline HCl (Zoloft*) 50 mg PO DAILY [facility] Last Admin: 06/06/18 08:56 Dose: 50 mg Valsartan (Diovan Tab*) 160 mg PO QAM [facility] Last Admin: 06/06/18 08:56 Dose: 160 mg Vital Signs - 8 hr 06/06/18 06/06/18 03:43 07:20 Temperature 97.6 F 97.4 F Pulse Rate 58 56 Respiratory 17 20 Rate Blood Pressure 135/50 152/55 (mmHg) O2 Sat by Pulse 98 99 Oximetry Oxygen Devices in Use Now: None Appearance: Alert, sitting up in bed. In good spirits. Looks comfortable. Eyes: No Scleral Icterus Extremities: No Edema, No Clubbing, Cyanosis, - Skin: No Nodules or Sclerosis, - - R wrist wound sl swollen, dry, minimal surrounding erythema. Neurological: Alert and Oriented x 3, NL Sensation Result Diagrams: 06/05/18 14:25 06/05/18 14:25 Microbiology and Other Data: Microbiology 06/05/18 13:45 Gram Stain - Final Wrist Right Assess/Plan/Problems-Billing Assessment: - Patient Problems (1) Wound infection Current Visit: Yes Status: Acute Code(s): T14.8XXA - OTHER INJURY OF UNSPECIFIED BODY REGION, INITIAL ENCOUNTER; L08.9 - LOCAL INFECTION OF THE SKIN AND SUBCUTANEOUS TISSUE, UNSP SNOMED Code(s): 19492244 Comment: Start vancomycin. Surface C&S pending. Consider discharge on oral linezolid or cephalosporin when clear she is improving--would then discharge on 1/4 her home dose sertraline if on linezolid. (2) Rheumatoid arthritis Current Visit: No Status: Chronic Code(s): M06.9 - RHEUMATOID ARTHRITIS, UNSPECIFIED SNOMED Code(s): 90849087 Comment: Continue hydroxychloroquine. 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 Reduce dose. Lispro by SS. Continue repaglinide if available. (4) Essential hypertension Current Visit: No Status: Chronic Code(s): I10 - ESSENTIAL (PRIMARY) HYPERTENSION SNOMED Code(s): 38656759 Comment: Continue amlodipine, valsartan. (5) Memory impairment Current Visit: No Status: Chronic Code(s): R41.3 - OTHER AMNESIA SNOMED Code(s): 728293307 Comment: Mild dementia. Continue home dementia meds. Sertraline halved, will reduce further when/if starting linezolid.
[2018-06-06] MEDS ORDERED: Vancomycin Trough Check NOTE FOLLOW UP ONE (14:00)
[2018-06-06] MEDS: Enoxaparin(*) 40 MG/0.4 ML SYR SUBCUT SCH (15:35)
[2018-06-07] MEDS: Vancomycin(*) 1,000 MG in NS 0.9% 250 ML* 250 ML IVPB SCH (06:06)
[2018-06-07] MEDS: Insulin LISPRO* 1 UNITS UNIT SUBCUT SCH (08:17)
[2018-06-07 08:30] VITALS: BP 140/85
[2018-06-07] MEDS: Repaglinide TAB* 1 MG PO SCH (08:39)
[2018-06-07] MEDS: RIVASTIGMINE 3 MG PO SCH (08:39)
[2018-06-07] MEDS: Hydroxychloroquine TAB* 200 MG PO SCH (08:39)
[2018-06-07] MEDS: Insulin GLARGINE(*) 1 UNITS UNIT SUBCUT SCH (08:40)
[2018-06-07] MEDS: Valsartan TAB* 160 MG PO SCH (08:40)
[2018-06-07] MEDS: Cholecalciferol TAB* 1000 UNITS PO SCH (08:40)
[2018-06-07] MEDS: Memantine TAB* 10 MG PO SCH (08:40)
[2018-06-07] MEDS: Sertraline* 50 MG TAB PO SCH (08:40)
[2018-06-07] MEDS: amLODIPine TAB* 5 MG PO SCH (08:40)
--- NOTE | 2018-06-07 09:21 | CONS ---
CONSULTATION NOTE: DATE OF CONSULT: 06/06/18 HISTORY OF PRESENT ILLNESS: The patient is a very pleasant 68-year-old female who recently had right carpal tunnel release on 05/26/[address] Thakur. The patient tolerated the procedure well and returned for a followup with Dr. Thkaur on 06/03/18. The patient at that time was found to have a possible wound infection and was given levofloxacin. The patient was sent to urgent care the day prior to her admission and was seen by Lyly Garrett in the office, where she was found to have a wound infection and was sent for further evaluation and treatment. The patient was kindly admitted by the internal medicine service for IV antibiotics. The patient denies any fevers. Denies any chills. Denies any drainage from the wound. She denies any new weakness, numbness, or tingling of lower extremities. Report suggests chronic weakness on the right hand and numbness in the first 3 fingers, which was present prior to her surgery. She denies any urinary or GI incontinence. The patient is , lives with her and she has 3 children from her first marriage. PAST MEDICAL HISTORY: The patient has history of rheumatoid arthritis, diabetes , dementia, hypertension. PAST SURGICAL HISTORY: Hysterectomy, thyroglossal cyst surgery, right carpal tunnel release. MEDICATIONS: The patient is currently on: 1. Cholecalciferol. 2. Diclofenac. 3. Lovenox. 4. Hydroxychloroquine. 5. Vancomycin. 6. Insulin. 7. Amlodipine. 8. Candesartan. 9. Prandin. 10. Exelon. 11. Zoloft. ALLERGIES: The patient is allergic to PENICILLIN, SULFA, BACTRIM. SOCIAL HISTORY: Tobacco negative. Alcohol negative. Recreational use negative. PHYSICAL EXAM: The patient is awake, alert, oriented x3. Her pupils are equal and reactive. Cranial nerves II through II are grossly intact. Motor: 4-5/5 in all extremities with the exception of the right handgrip which is 4-/5, possibly ataxic or as the patient reports it was the finding. Sensory grossly intact to light touch. Deep tendon reflexes +1 bilaterally. No clonus. No Babinski. Clay's negative. Straight leg test negative in the sitting position. The patient's wound was examined, sutures have been removed and there is a small dehiscence with mild redness in the upper part of the incision without evidence of acute drainage or purulent discharge. ASSESSMENT: The patient is a very pleasant 68-year-old female, status post right carpal tunnel release with wound dehiscence and wound infection. PLAN: The patient at this point, is kindly admitted to the hospital by hospitalist service and she has been started on IV vancomycin. Her white count is 8.2. Will continue on antibiotics for now. Daily wound dressing changes. The patient may be a candidate for irrigation and debridement if she does not respond to antibiotics. Thank you for allowing us to participate in the care of this patient. Please do not hesitate to contact our office in case you have any further questions or concerns regarding the care of this patient. Earl Merida MD [id number]/[facility] #: [id number] ROM[facility]
--- NOTE | 2018-06-07 11:34 | PN ---
Progress Note - Progress Note Date of Service: 06/07/18 Note: Time spent on discharge 40 minutes, including exam of the patient, discussion with the patient, her , the nurse, the CM, the pharmacist, Dr. Herring.
--- NOTE | 2018-06-07 12:41 | PN ---
Progress Note - Progress Note Date of Service: 06/07/18 SOAP: Subjective: []No events ON. Patient was on IV Abx. No dc from wound Objective: []VSS, Afebrile. Wound soft, clean, dry. 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 Patient will follow up with Dr Thakur in the office in am. Full instructions were given. Earl Merida MD
--- NOTE | 2018-06-07 16:16 | DS ---
CC: Dr. Fairbanks DISCHARGE SUMMARY: DATE OF ADMISSION: 06/05/18 DATE OF DISCHARGE: 06/07/18 HOSPITAL COURSE: This 68-year-old woman was referred from the neurosurgical service. She had right carpal tunnel release by Dr. Thakur on 05/26/18. She seemed to be doing well postoperatively before her followup visit with Dr. Thakur on 06/03/18. Three days before she developed a spot on the surgical wound. Dr. Thakur felt that the wound was infected and prescribed levofloxacin. The wound seemed to be getting worse and the patient went to Urgent Care the next day and they arranged her to see Lyly ISSA, at Dr. Thakur's office the day of admission and she was referred in for direct admission. The rest of the history is detailed as follows. The patient was given intravenous vancomycin while she was in the hospital. Surface wound culture grew out Staph aureus positive, it was MRSA negative by PCR. Her temperature was below 99 degrees for her entire hospital stay. Her white blood count on the day of admission was 8.2, similar to her previous values when well. Her CRP was 6.94, also similar to previous values she has had on many occasions. The wound seemed to improve somewhat during her hospital stay, there was virtually no drainage, erythema pretty much resolved. There was some granulation type tissue or swelling about the wound but no erythema, no drainage. The wound closure seemed adequate and there was no pain. It was mildly tender. She has a history of rash to PENICILLIN many years ago. The does not remember it, it was so long ago. I am going to give her cefdinir, as a higher level generation cephalosporin is less likely to cause an allergic reaction in a penicillin-allergic patient. FINAL DIAGNOSES: 1. Wound infection. 2. Rheumatoid arthritis. 3. Diabetes mellitus. 4. Hypertension. 5. Memory impairment. DISCHARGE MEDICATIONS: 1. Cefdinir 300 mg b.i.d. for 16 doses. 2. Glargine insulin 32 units daily every 24 hours. 3. Sertraline 50 mg daily. 4. Amlodipine 10 mg daily. 5. Candesartan 32 mg daily. 6. Vitamin D3 1000 units daily. 7. Plaquenil 200 mg b.i.d. 8. Fish oil 1000 mg b.i.d. 9. Rivastigmine 3 mg b.i.d. 10. Memantine 10 mg b.i.d. 11. Diclofenac 1% gel b.i.d. p.r.n. 12. Vitamin B complex daily. 13. Gabapentin 300 mg b.i.d. 14. Repaglinide 1 mg t.i.d. with meals. 15. Hydrocodone and acetaminophen 5/325 mg 1 every 4 hours p.r.n. DISCHARGE DISPOSTION: home DISCHARGE CONDITION: good [id number]/[facility] #: [id number] [facility]
[2018-06-08] MEDS ORDERED: Vancomycin Trough Check NOTE FOLLOW UP ONE (13:30)
== END 2018-06-07 12:15 | disposition home or self-care (01) | DRG 721 ==
LOC: MED 12:05
PROVIDERS: ADMIT Internal Medicine; ATTEND Internal Medicine
DX: T81.41XA Infection following a procedure, superficial incisional surgical site, initial encounter (principal); T81.31XA Disruption of external operation (surgical) wound, not elsewhere classified, initial encounter; F03.90 Unspecified dementia, unspecified severity, without behavioral disturbance, psychotic disturbance, mood disturbance, and anxiety; B95.61 Methicillin susceptible Staphylococcus aureus infection as the cause of diseases classified elsewhere; M06.9 Rheumatoid arthritis, unspecified; E11.9 Type 2 diabetes mellitus without complications; I10 Essential (primary) hypertension; X58.XXXA Exposure to other specified factors, initial encounter; Z96.659 Presence of unspecified artificial knee joint; Z88.1 Allergy status to other antibiotic agents; Z88.0 Allergy status to penicillin; Z88.2 Allergy status to sulfonamides; Z82.49 Family history of ischemic heart disease and other diseases of the circulatory system; Z83.3 Family history of diabetes mellitus; Z79.899 Other long term (current) drug therapy; Z79.4 Long term (current) use of insulin
CPT/HCPCS: 36415; 80048; 80053; 80061; 80202; 82043; 82248; 82570; 82607; 84520; 85025; 86140; 87070; 87077; 87186; 87205; 87640; 87641; 99212; A9270-GY; G0463; J1650; J3370

== ENCOUNTER 2019-12-06 12:37 | Emergency (ER) | payer MEDICARE ==
--- NOTE | 2019-12-06 12:41 | UC ---
Hand/Wrist HPI - HPI Summary HPI Summary: 69 yo female presents, accompanied by , with RIGHT arm injury. Pt has dementia at baseline, but is quite coherent still. provides some of the history. They tell me about 3 days ago they were moving a greenhouse and pt tripped over debris on the ground and landed on her right forearm. Didn't have much pain, but develops swelling and bruising. Since that time the bruising and swelling have improved, but there is a localized swollen nodule on her forearm that is of most concern to them today. is also asking for an XR of her right shoulder as pt fell in the home about a month ago and landed on her right shoulder. Pt still complains of pain when laying on this shoulder intermittently. Currently pt states no pain in shoulder. Denies numbness or tingling or decreased ROM. - History Of Current Complaint Stated Complaint: RIGHT ARM INJURY Time Seen by Provider: 12/06/19 12:40 Hx Obtained From: Patient, Family/Research Physicist Hx Last Menstrual Period: n/a Onset/Duration: Sudden Onset Severity Initially: Mild Severity Currently: Mild Pain Intensity: 3 Pain Scale Used: 0-10 Numeric - Allergies/Home Medications Allergies/Adverse Reactions: Allergies Allergy/AdvReac Type Severity Reaction Status Date / Time Penicillins Allergy Rash Verified 12/06/19 12:53 Sulfa (Sulfonamide Allergy Rash Verified 12/06/19 12:53 Antibiotics) sulfamethoxazole Allergy Rash Verified 12/06/19 12:53 [From Bactrim] trimethoprim [From Bactrim] Allergy Rash Verified 12/06/19 12:53 Home Medications: Home Medications Amlodipine Besylate [Norvasc 10 mg tab] 10 mg PO QAM 02/07/15 [History Confirmed 12/06/19] Candesartan Cilexetil [Atacand] 32 mg PO QAM 02/07/15 [History Confirmed ] Hydroxychloroquine TAB* [Plaquenil TAB*] 200 mg PO BID 03/08/17 [History Confirmed 12/06/19] [place]-3/Dha/Epa/Fish Oil [Fish Oil 1,000 mg Softgel] 1,000 mg PO BID 03/08/17 [ History Confirmed 12/06/19] Diclofenac 1% GEL (NF) [Voltaren 1% GEL (NF)] 1 applic TOPICAL BID PRN 05/19/18 [History Confirmed 12/06/19] Memantine HCl 10 mg PO BID 05/19/18 [History Confirmed 12/06/19] Repaglinide TAB* [Prandin TAB*] 1 mg PO TID WITH MEALS 05/19/18 [History Confirmed 12/06/19] Rivastigmine CAP(NF) [Exelon (NF)] 4.5 mg PO BID 05/19/18 [History Confirmed ] Vitamin B Complex [Ultra B-100 Complex] 1 each PO QAM 05/19/18 [History Confirmed 12/06/19] Atorvastatin* [Lipitor 20 MG*] 20 mg PO DAILY 12/06/19 [History Confirmed ] Insulin GLARGINE(*) [Lantus 100 units/ml 10 ml VIAL (*)] 38 units SUBCUT Q24H [History Confirmed 12/06/19] Sertraline* [Zoloft*] 50 mg PO BID 12/06/19 [History Confirmed 12/06/19] PMH/Surg Hx/FS Hx/Imm Hx - Additional Past Medical History Additional PMH: Chronic pain Endocrine History: Diabetes Neurological History: Dementia - Surgical History Surgical History: Yes Surgery Procedure, Year, and Place[place] [facility] [place] knee [place]. right knee infection, had to have 2nd replacement [place] [facility] [place] catarct extraction with IOL's. thyroglossal cyst removal - Family History Known Family History: Positive: None Negative: Cardiac Disease Family History: no cardio vascular issues in family lineage - Social History Lives: With Family Alcohol Use: Rare Substance Use Type: None Smoking Status (MU): Never Smoked Tobacco Household Exposure Type: Cigarettes - Immunization History Most Recent Influenza Vaccination: Fall 2015 Most Recent [place] [facility] [place] Recent Pneumonia Vaccination: July 2016 Review of Systems All Other Systems Reviewed And Are Negative: No Constitutional: Positive: Negative Skin: Positive: Bruising Respiratory: Positive: Negative Cardiovascular: Positive: Negative Neurovascular: Positive: Negative Musculoskeletal: Positive: Other: - Right arm injury Neurological/Mental Status: Positive: Negative Psychological: Positive: Negative Physical Exam - Summary Physical Exam Summary: GENERAL: NAD. WDWN. No pain distress. SKIN: No rashes, sores, lesions, or open wounds. CHEST: No accessory muscle use. Breathing comfortably and in no distress. CV: Pulses intact radial and ulnar. Cap refill <2seconds MSK: RIGHT FOREARM: Mild fading ecchymosis about ulnar aspect of forearm with approx 1.0cm nodular soft hematoma on dorsal aspect mid-forearm. NTTP. No erythema or induration. FROM right wrist and elbow. Strength 5/5 including older adult social work specialist strength. No edema or obvious bony deformities. RIGHT SHOULDER: NTTP. FROM. Negative empty can, neer, christine, goyal. NEURO: Alert. Sensations intact hand and all fingers. PSYCH: Age appropriate behavior. Triage Information Reviewed: Yes Vital Signs: Vital Signs: Temp Pulse Resp BP Pulse Ox 97.9 F 66 18 163/65 99 12/06/19 12:50 12/06/19 12:50 12/06/19 12:50 12/06/19 12:50 12/06/19 12:50 Vital Signs Reviewed: Yes Diagnostics - Radiology Right forearm XR Radiology Interpretation Completed By: Radiologist Summary of Radiographic Findings: IMPRESSION: 1. SOFT TISSUE SWELLING ALONG THE MID DORSAL SOFT TISSUES WITH A PUNCTATE SUBCUTANEOUS RADIOPAQUE STRUCTURE. 2. NO DISPLACED FRACTURE 3. PROXIMAL CARPAL ARC CHONDROCALCINOSIS. 4. ADVANCED FIRST CMC OSTEOPHYTE ARTHROPATHY. Right shoulder XR Radiology Interpretation Completed By: Radiologist Summary of Radiographic Findings: IMPRESSION: No fracture of the right shoulder is noted. Hand/Wrist Course/Dx - Course Course Of Treatment: XR of shoulder and forearm negative for acute process. Noted in the right forearm film there is a punctate FB. Pt has no open wounds from her recent fall and states no wounds or punctures to the area that she knows of. The site of the punctate FB appears to be proximal 1.0cm-2.0cm to the nodule described in skin exam. This FB does not appear acute at this time, thus recommend f/u with PCP. Suspect hematoma of right forearm that appears to be improving. Advised continued supportive care RICE therapy. Will refer to Orthopedics for her continued right shoulder pain. - Differential Dx/Diagnosis Provider Diagnosis: Traumatic hematoma of right forearm, Right shoulder pain Discharge ED - Sign-Out/Discharge Documenting (check all that apply): Patient Departure All imaging exams completed and their final reports reviewed: Yes - Discharge Plan Condition: Stable Disposition: HOME Patient Education Materials: Hematoma (ED) Referrals: Nikita Fairbanks MD [Primary Care Provider] - Rocco Guzman MD [Medical Doctor] - If Needed Additional Instructions: If you develop a fever, shortness of breath, chest pain, new or worsening symptoms - please call your PCP or go to the ED immediately. Your blood pressure was high at todays visit. Please see your primary provider within 4 weeks for recheck and re-evaluation. The X-rays of your arm and shoulder were normal today. The XR did notice a pin- point small foreign body within your mid forearm that could be a metal shard. You have no open wounds recently to the area, thus this is likely due to a prior injury perhaps years old. I suspect the bruise to your arm will heal with rest, ice, and time. If you notice redness, increased swelling, warmth, or new symptoms please be rechecked If your shoulder continues to bother you - I recommend scheduling an appointment with an Orthopedic doctor for further evaluation. - Billing Disposition and Condition Condition: STABLE Disposition: Home
--- OUTSIDE RECORDS SUMMARY | 2019-12-06 12:46 | XMS REPORT | Continuity of Care Document ---
:1950 External Reference #:[id number] Author Name Sarkis Riley M.D. Address [address] [place] [address] Care Team Providers Name Role Phone Nikita Fairbanks MD - Endocrinology, Care Team Information Risk Assessment Analyst Diabetes & Metabolism Luis A Ovalle MD - Physical Care Team Information Risk Assessment Analyst Medicine & Rehabilitation Problems Active Problems Provider Date Rheumatoid arthritis Kwasi Lind M.D. Onset: 11/02/2012 Immunological Findings Nonspecified Other & Kwasi Lind M.D. Onset: 2012 Unspecified Medications Penitentiary (Current) Use Kwasi Lind M.D. Onset: 11/02/2012 Encounter Inflammatory spondylopathy Kwasi Lnid M.D. Onset: 02/09/2013 Osteomyelitis of lower leg Kwasi Lind M.D. Onset: 05/05/2013 Taking medication Carlos Dempsey, JOAO Onset: 04/19/2015 Amnesia Fredrick Tijerina M.D. Onset: 05/09/2017 Altered mental status Fredrick Tijerina M.D. Onset: 05/09/2017 Mild cognitive disorder Fredrick Tijerina M.D. Onset: 10/30/2017 Chronic fatigue syndrome Fredrick Tijerina M.D. Onset: 10/30/2017 Hypersomnia Fredrick Tijerina M.D. Onset: 10/30/2017 Skin sensation disturbance Fredrick Tijerina M.D. Onset: 02/09/2018 Carpal tunnel syndrome of right wrist Fredrick Tijerina M.D. Onset: 2017 Malaise and fatigue Fredrick Tijerina M.D. Onset: 09/03/2019 Obstructive sleep apnea syndrome Fredrick Tijerina M.D. Onset: 05/13/2019 Convalescence after surgery Sorin Thakur M.D. Onset: 06/03/2018 Social History Type Date Description Comments Sex Unknown Tobacco Use Start: Unknown Never Smoked Cigarettes Smoking Status Reviewed: 09/29/19 Never Smoked Cigarettes ETOH Use Rarely consumes alcohol Tobacco Use Start: Unknown Patient has never smoked Recreational Drug Use Denies Drug Use Exercise Type/Frequency Exercises regularly Allergies, Adverse Reactions, Alerts Active Allergies Reaction Severity Comments Date Sulfa Antibiotics 11/02/2012 Bactrim 11/02/2012 Penicillin 01/31/2016 Clonazepam 01/31/2016 Medications Active Medications SIG Qnty Indications Ordering Date Provider Rivastigmine Tartrate 1 by mouth 180caps G56.01 [facility] 4.5mg twice a day Thea Tijerina 9 Capsules Memantine HCL Take One Tablet 180tabs G31.84 [facility] 10mg Tablets By Mouth Twice Thea Tijerina 8 A Day Hydroxychloroquine take one tablet 180tabs Sarkis Riley, Sulfate by mouth two M.DJarett 8 200mg Tablets times a day for rheumatoid arthritis Sertraline HCL 1 by mouth bid 30tabs Sarkis Riley, 50mg Tablets every day M.D. 7 Voltaren apply 2 grams 200units Sarkis Riley, 1% Gel twice daily as M.D. 7 needed for pain to the hands Insulin Syringe/1ML/28G sc weekly for 12units Kwasi Lind, X 1/2" mtx as directed M.DJarett 3 28G X 1/2" 1 ML Misc Amlodipine Besylate 1 by mouth Unknown 10mg every day 0 Tablets Repaglinide 1 by mouth Unknown 1mg Tablets before all 0 meals Candesartan Cilexetil 1 by mouth Unknown 32mg every day 0 Tablets Fish Oil bid by mouth Unknown 1000mg Capsules every day 0 B Complete once a day Unknown Tablets 0 Atorvastatin Calcium Take One Tablet Unknown 20mg By Mouth Every 0 Tablets Day Latanoprost Instill 1 Drop Unknown 0.005% Solution Into Both Eyes 0 Every Night AT Bedtime Immunizations CPT Code Status Date Vaccine Lot # [id number] Given 09/11/2015 Pneumonia Vaccine Vital Signs Date Vital Result Comment 09/29/2019 9:58am Height 68 inches 5'8" Weight 210.00 lb Heart Rate 77 /min BP Systolic 132 mmHg BP Diastolic 64 mmHg O2 % BldC Oximetry 97 % BMI (Body Mass Index) 31.9 kg/m2 09/03/2019 8:27am Height 68 inches 5'8" Weight 215.00 lb Heart Rate 66 /min BP Systolic 132 mmHg BP Diastolic 82 mmHg BMI (Body Mass Index) 32.7 kg/m2 Results Test Acquired Date Facility Test Result H/L Range Note Urine 05/27/2019 [facility] Ur Microalbumin 25.5 mg/L Microalbumin 101 (mg/L) [place] [address] [phone] Urine Creatinine 121.04 mg/dL Urine Microalbumin/Creatinine 21.0 Normal <31 Lipid Profile 05/27/2019 [facility] Triglycerides 83 mg/dL 1 (Trig/Chol/HDL) [address] [place] [address] [phone] Cholesterol 200 mg/dL 2 HDL Cholesterol 63.5 mg/dL 3 LDL Cholesterol 120 mg/dL 4 Liver Function 05/27/2019 [facility] Total Protein 6.3 g/dL Low 6.4-8.[address] [place] [address] [phone] Albumin 3.9 g/dL Normal 3.2-5.2 Globulin 2.4 g/dL Normal 2-4 Albumin/Globulin Ratio 1.6 Normal 1-3 Total Bilirubin 0.40 mg/dL Normal 0.2-1.0 Direct Bilirubin 0.10 mg/dL Normal 0.03-0.18 Indirect Bilirubin 0.3 mg/dL Normal 0.3-1.0 Alkaline Phosphatase 83 U/L Normal 34-104 Alt 11 U/L Normal 7-52 Ast 14 U/L Normal 13-39 Laboratory test 05/27/2019 [facility] Vitamin B12 614 pg/mL Normal 180-[address] [place] [address] [phone] Laboratory test 05/27/2019 [facility] C Reactive 6.85 mg/L Normal <8.[address] [place] [address] [phone] Erythrocyte Sed Rate 28 mm/Hr Normal 0-29 7 CBC Auto 05/27/2019 [facility] White Blood 7.8 10^3/uL Normal 3.5-10.[address] [place] [address] [phone] Red Blood Count 4.49 10^6/uL Normal 3.70-4.87 Hemoglobin 12.8 g/dL Normal 12.0-16.0 Hematocrit 38 % Normal 35-47 Mean Corpuscular Volume 84 fL Normal 80-97 Mean Corpuscular Hemoglobin 28 pg Normal 27-31 Mean Corpuscular HGB Conc 34 g/dL Normal 31-36 Red Cell Distribution Width 15 % Normal 10-15 Platelet Count 291 10^3/uL Normal 150-450 Mean Platelet Volume 8.7 fL Normal 7.4-10.4 Abs Neutrophils 5.2 10^3/uL Normal 1.5-7.7 Abs Lymphocytes 1.8 10^3/uL Normal 1.0-4.8 Abs Monocytes 0.6 10^3/uL Normal 0-0.8 Abs Eosinophils 0.2 10^3/uL Normal 0-0.6 Abs Basophils 0.0 10^3/uL Normal 0-0.2 Abs Nucleated RBC 0.0 10^3/uL Granulocyte % 67.3 % Lymphocyte % 22.6 % Monocyte % 7.3 % Eosinophil % 2.2 % Basophil % 0.6 % Nucleated Red Blood Cells % 0.0 Comp Metabolic 05/27/2019 [facility] Sodium 143 mmol/L Normal 135-[address] [place] [address] [phone] Potassium 3.5 mmol/L Normal 3.5-5.0 Chloride 110 mmol/L Normal 101-111 Co2 Carbon Dioxide 26 mmol/L Normal 22-32 Anion Gap 7 mmol/L Normal 2-11 Glucose 86 mg/dL Normal 70-100 Blood Urea Nitrogen 11 mg/dL Normal 6-24 Creatinine 0.62 mg/dL Normal 0.51-0.95 BUN/Creatinine Ratio 17.7 Normal 8-20 Calcium 9.4 mg/dL Normal 8.6-10.3 Total Protein 6.4 g/dL Normal 6.4-8.9 Albumin 4.0 g/dL Normal 3.2-5.2 Globulin 2.4 g/dL Normal 2-4 Albumin/Globulin Ratio 1.7 Normal 1-3 Total Bilirubin 0.40 mg/dL Normal 0.2-1.0 Alkaline Phosphatase 87 U/L Normal 34-104 Alt 12 U/L Normal 7-52 Ast 14 U/L Normal 13-39 Egfr Non- 96.0 >60 Egfr 116.2 >60 8 Laboratory test finding 05/27/2019 [facility] Cortisol 17.74 g /dL [address] [place] [address] [phone] Desirable: <150 Borderline High: 150-199 High: 200-499 Very High: >500 2 Desirable: <200 Borderline High: 200-239 High: >239 3 Low: <40 Desirable: 40-60 High: >60 4 Desirable: <100 Near Optimal: 100-129 Borderline High: 130-159 High: 160-189 Very High: >189 5 Normal Range 180 to 914 Indeterminate Range 145 to 180 Deficient Range <145 6 Please check with upcoming lab draw with Dr. Fairbanks 7 Please check with upcoming lab draw with Dr. Fairbanks 8 Because ethnic data is not always readily [...] 15-29 5 Kidney failure <15 (or dialysis) 9 AM 8.7-22.4 PM <10 Procedures Description No Information Available Medical Devices Description No Information Available Encounters Type Date Location Provider Dx Diagnosis Office Visit 11/25/2019 Rheumatology Sarkis Riley, M06.9 Rheumatoid 8:20a [facility] arthritis, unspecified Z79.899 Other intermission coordinator (current) drug therapy M50.30 Other cervical disc degeneration, unsp cervical region Office Visit 09/29/2019 Pulmonology And Isatu G47.33 Obstructive sleep 10:00a [facility] Lou apnea (adult) [facility] (pediatric) R53.83 Other fatigue Office Visit 09/03/2019 [facility] Fredrick Tijerina, G31.84 Mild cognitive 8:15a Neurologic M.D. impairment, so [facility] stated G47.33 Obstructive sleep apnea (adult) (pediatric) R53.83 Other fatigue M06.9 Rheumatoid arthritis, unspecified Office Visit 08/27/2019 [facility] G47.33 Obstructive sleep 10:00a [facility] Lou apnea (adult) [facility] (pediatric) R53.83 Other fatigue Office Visit 07/19/2019 Pulmonology And Isatu G47.33 Obstructive sleep 9:00a [facility] Lou apnea (adult) [facility] (pediatric) G31.84 Mild cognitive impairment, so stated Office Visit 06/02/2019 8:30a Pulmonology And Becky G47.33 Obstructive sleep [facility] Demetria apnea (adult) [facility] (pediatric) G31.84 Mild cognitive impairment, so stated Assessments Date Code Description Provider 11/25/2019 M06.9 Rheumatoid arthritis, unspecified Sarkis Riley M.D. 11/25/2019 Z79.899 Other intermission coordinator (current) drug therapy Sarkis Riley M.D. 11/25/2019 M50.30 Other cervical disc degeneration, Sarkis Riley M.D. unspecified cervical region 09/29/2019 G47.33 Obstructive sleep apnea (adult) (pediatric) Isatu Lou NP 09/29/2019 R53.83 Other fatigue Isatu Lou NP 09/03/2019 G31.84 Mild cognitive impairment, so stated Fredrick Tijerina M.D. 09/03/2019 G47.33 Obstructive sleep apnea (adult) (pediatric) Fredrick Tijerina M.D. 09/03/2019 R53.83 Other fatigue Fredrick Tijerina M.D. 09/03/2019 M06.9 Rheumatoid arthritis, unspecified Fredrick Tijerina M.D. 08/27/2019 G47.33 Obstructive sleep apnea (adult) (pediatric) Isatu Lou NP 08/27/2019 R53.83 Other fatigue Isatu Lou NP 07/19/2019 G47.33 Obstructive sleep apnea (adult) (pediatric) Isatu Lou NP 07/19/2019 G31.84 Mild cognitive impairment, so stated Isatu Lou NP 06/02/2019 G47.33 Obstructive sleep apnea (adult) (pediatric) Becky Augustin MD 06/02/2019 G31.84 Mild cognitive impairment, so stated Becky Augustin MD Plan of Treatment Future Appointment(s):12/28/2019 10:00 am - Isatu Lou NP at [facility]01/10/2020 8:15 am - Fredrick Tijerina M.D. at [facility]09/03/2019 - Fredrick Tijerina M.D.G31.84 Mild cognitive impairment, so statedFollow up:Follow up in 4 [id number] Obstructive sleep apnea (adult) (pediatric)R53.83 Other [id number] Rheumatoid arthritis, unspecified Functional Status Description No Information Available Mental Status Description No Information Available Referrals Description No Information Available
--- OUTSIDE RECORDS SUMMARY | 2019-12-06 12:46 | XMS REPORT | Continuity of Care Document ---
:1950 External Reference #:[id number] Author Name Sarkis Riley M.D. (transmitted by agent of provider Nickie Olivas) Address [address] [place] [id number] Care Team Providers Name Role Phone Nikita Fairbanks MD - Endocrinology, Care Team Information Enamel Buffer Diabetes & Metabolism Luis A Ovalle MD - Physical Care Team Information Enamel Buffer Medicine & Rehabilitation Problems Active Problems Provider Date Rheumatoid arthritis Kwasi Lind M.D. Onset: 11/02/2012 Immunological Findings Nonspecified Other & Kwasi Lind M.D. Onset: 2012 Unspecified Medications Snf (Current) Use Kwasi Lind M.D. Onset: 11/02/2012 Encounter Inflammatory spondylopathy Kwasi Lind M.D. Onset: 02/09/2013 Osteomyelitis of lower leg Kwasi Lind M.D. Onset: 05/05/2013 Taking medication JOAO Marx Onset: 04/19/2015 Amnesia Fredrick Tijerina M.D. Onset: [...] Rivastigmine Tartrate 1 by mouth 180caps [facility]56.01 [facility] Thea Tijerina 9 Capsules Memantine HCL Take One Tablet 180tabs G31.84 [facility] 10[facility] Tablets By Mouth Twice Thea Tijerina 8 A Day Hydroxychloroquine take one tablet 180tabs Sarkis Riley, Sulfate by mouth two M.D. 8 200mg Tablets times a day for rheumatoid arthritis Sertraline HCL 1 by mouth bid 30tabs Sarkis Riley, 50mg Tablets every day M.D. 7 Voltaren apply 2 grams 200units Sarkis Riley, 1% Gel twice daily as M.D. 7 needed for pain to the hands Insulin Syringe/1ML/28G sc weekly for 12units Kwasi Lind, X 1/2" mtx as directed M.D. 3 28G X 1/2" 1 ML Misc [...] CPT Code Status Date Vaccine Lot # [id number] Given 09/11/2015 Pneumonia Vaccine Vital Signs Date [...] BMI (Body Mass Index) 32.7 kg/m2 Results Description No Information Available Procedures Description No Information Available Medical Devices Description No Information Available Encounters Type Date Location Provider Dx Diagnosis Office Visit 11/25/2019 Rheumatology Sarkis Riley, M06.9 Rheumatoid 8:20a [facility] arthritis, unspecified Z79.899 Other prison (current) drug therapy M50.30 Other cervical disc degeneration, unsp cervical region Office Visit 09/29/2019 [facility] G47.33 Obstructive sleep 10:00a [facility] Lou apnea (adult) [facility] (pediatric) R53.83 Other fatigue Office Visit 09/03/2019 Marcos Tijerina, G31.84 Mild cognitive 8:15a Neurologic M.DJarett impairment, so [facility] stated G47.33 Obstructive sleep apnea (adult) (pediatric) R53.83 Other fatigue M06.9 Rheumatoid arthritis, unspecified Office Visit 08/27/2019 Pulmonology And Isatu G47.33 Obstructive sleep 10:00a [facility] Lou apnea (adult) [facility] (pediatric) R53.83 Other fatigue Office Visit 07/19/2019 Pulmonology And Isatu G47.33 Obstructive sleep 9:00a [facility] Lou apnea (adult) [facility] (pediatric) G31.84 Mild cognitive impairment, so stated Office Visit 06/02/2019 8:30a Pulmonology And Becky G47.33 Obstructive sleep [facility] Demetria apnea (adult) [facility] (pediatric) G31.84 Mild cognitive impairment, so stated Assessments Date Code Description Provider 11/25/2019 M06.9 Rheumatoid arthritis, unspecified Sarkis Riley M.D. 11/25/2019 Z79.899 Other exterminator helper (current) drug therapy Sarkis Riley M.D. 11/25/2019 M50.30 Other cervical disc degeneration, Sarkis Riley M.D. unspecified cervical region 09/29/2019 G47.33 Obstructive sleep apnea (adult) (pediatric) Isatu Lou, [facility] 09/29/2019 R53.83 Other fatigue Isatu Lou, [facility] 09/03/2019 G31.84 Mild cognitive impairment, so stated [...] NP at [facility]01/10/2020 8:15 am - Fredrick Tijerina M.D. at [place] [facility]09/03/2019 - Fredrick Tijerina M.D.G31.84 Mild cognitive impairment, so statedFollow up:Follow up in 4 [id number] Obstructive sleep apnea (adult) (pediatric)R53.83 Other [id number] Rheumatoid arthritis, unspecified Functional Status Description No Information Available Mental Status Description No Information Available Referrals Description No Information Available
--- OUTSIDE RECORDS SUMMARY | 2019-12-06 12:46 | XMS REPORT | Continuity of Care Document ---
:1950 External Reference #:[id number] Author Name Sarkis Riley M.D. Address [address] [place] [address] Care Team Providers Name Role Phone Nikita Fairbanks MD - Endocrinology, Care Team Information [facility] Rheumatology Diabetes & Metabolism Luis A Ovalle MD - Physical Care Team Information [facility] Rheumatology [phone] Medicine & Rehabilitation Problems Active Problems Provider Date Rheumatoid arthritis Kwasi Lind M.D. Onset: 11/02/2012 Immunological Findings Nonspecified Other & Kwasi Lind M.D. Onset: 2012 Unspecified Medications Long-Term (Current) Use Kwasi Lind M.D. Onset: 11/02/2012 [...] Rivastigmine Tartrate 1 by mouth 180caps G56.01 Jackson 4.5mg twice a day Thea Tijerina 9 Capsules Memantine HCL Take One Tablet 180tabs G31.84 Jackson 10mg Tablets By Mouth Twice Thea Tijerina [...] CPT Code Status Date Vaccine Lot # [id number] Given 09/11/2015 Pneumonia Vaccine Vital Signs Date [...] Test Result H/L Range Note Urine 05/27/2019 [facility] Ur Microalbumin 25.5 mg/L Microalbumin 101 (mg/L) [place] [address] [phone] Urine Creatinine 121.04 mg/dL Urine Microalbumin/Creatinine 21.0 Normal <31 Lipid Profile 05/27/2019 [facility] Triglycerides 83 mg/dL 1 (Trig/Chol/HDL) [address] [place] [address] [phone] Cholesterol 200 mg/dL 2 HDL Cholesterol 63.5 mg/dL 3 LDL Cholesterol 120 mg/dL 4 Liver Function 05/27/2019 [facility] Total Protein 6.3 g/dL Low 6.4-8.[address] [place] [address] [phone] Albumin 3.9 g/dL Normal 3.2-5.2 Globulin 2.4 g/dL Normal 2-4 Albumin/Globulin Ratio 1.6 Normal 1-3 Total Bilirubin 0.40 mg/dL Normal 0.2-1.0 Direct Bilirubin 0.10 mg/dL Normal 0.03-0.18 Indirect Bilirubin 0.3 mg/dL Normal 0.3-1.0 Alkaline Phosphatase 83 U/L Normal 34-104 Alt 11 U/L Normal 7-52 Ast 14 U/L Normal 13-39 Laboratory test 05/27/2019 [facility] Vitamin B12 614 pg/mL Normal 180-[address] [place] [address] [phone] Laboratory test 05/27/2019 [facility] C Reactive 6.85 mg/L Normal <8.[address] [place] [address] [phone] Erythrocyte Sed Rate 28 mm/Hr Normal 0-29 7 CBC Auto 05/27/2019 [facility] White Blood 7.8 10^3/uL Normal 3.5-10.[address] [place] [address] [phone] Red Blood Count 4.49 10^6/uL Normal 3.70-4.87 [...] Blood Cells % 0.0 Comp Metabolic 05/27/2019 [facility] Sodium 143 mmol/L Normal 135-[address] [place] [address] [phone] Potassium 3.5 mmol/L Normal 3.5-5.0 Chloride 110 [...] 116.2 >60 8 Laboratory test finding 05/27/2019 [facility] Cortisol 17.74 g /dL [address] [place] [address] [phone] 1 Desirable: <150 Borderline High: 150-199 High: [...] Of Rubina Sidhu arthritis, unspecified Z79.899 Other moth exterminator (current) drug therapy M50.30 Other cervical disc degeneration, unsp cervical region Office Visit 09/29/2019 [facility] G47.33 Obstructive sleep 10:00a [facility] Lou apnea (adult) [facility] (pediatric) R53.83 Other fatigue Office Visit 09/03/2019 Marcos Fredrick Tijerina, G31.84 Mild cognitive 8:15a Neurologic M.D. impairment, so [facility] stated G47.33 Obstructive sleep apnea (adult) (pediatric) R53.83 Other fatigue M06.9 Rheumatoid arthritis, unspecified Office Visit 08/27/2019 [facility] G47.33 Obstructive sleep 10:00a [facility] Lou apnea (adult) [facility] (pediatric) R53.83 Other fatigue Office Visit 07/19/2019 [facility] G47.33 Obstructive sleep 9:00a [facility] Lou apnea (adult) [facility] (pediatric) G31.84 Mild cognitive impairment, so stated Office Visit 06/02/2019 8:30a [facility] G47.33 Obstructive sleep [facility] apnea (adult) [facility] (pediatric) G31.84 Mild cognitive impairment, so stated Assessments Date Code Description Provider 11/25/2019 M06.9 Rheumatoid arthritis, unspecified Sarkis Riley M.D. 11/25/2019 Z79.899 Other moth exterminator (current) drug therapy Sarkis Riley M.D. 11/25/2019 [...] NP at [facility]01/10/2020 8:15 am - Fredrick Tijerina M.D. at [facility]09/03/2019 - Fredrick Tijerina M.D.G31.84 Mild cognitive impairment, so statedFollow up:Follow up in 4 [id number] Obstructive sleep apnea (adult) (pediatric)R53.83 Other leibtodA03.9 Rheumatoid arthritis, unspecified Functional Status Description No Information Available Mental Status Description No Information Available Referrals Description No Information Available
[2019-12-06 12:53] VITALS: BP 163/65
== END 2019-12-06 13:50 | disposition home or self-care (01) ==
LOC: UCEAST 12:37
DX: S50.11XA Contusion of right forearm, initial encounter (principal); M25.511 Pain in right shoulder; M11.241 Other chondrocalcinosis, right hand; M25.741 Osteophyte, right hand; W01.0XXA Fall on same level from slipping, tripping and stumbling without subsequent striking against object, initial encounter; Y93.89 Activity, other specified; Y92.096 Garden or yard of other non-institutional residence as the place of occurrence of the external cause; F03.90 Unspecified dementia, unspecified severity, without behavioral disturbance, psychotic disturbance, mood disturbance, and anxiety; E11.9 Type 2 diabetes mellitus without complications; Z79.4 Long term (current) use of insulin; Z88.0 Allergy status to penicillin; Z88.2 Allergy status to sulfonamides; Z96.653 Presence of artificial knee joint, bilateral
CPT/HCPCS: 99212; G0463

== ENCOUNTER 2021-03-19 15:13 | Observation (INO) ==
[2021-03-19 16:41] LABS: Urine Appearance Cloudy; Urine Bilirubin Negative (Negative); Urine Blood Negative (Negative); Urine Color Yellow; Urine Glucose 1+(50 mg/dL) (Negative); Urine Ketones Trace (Negative); Urine Nitrite Negative (Negative); Urine Protein 1+(30 mg/dL) (Negative); Urine Specific Gravity 1.024 (1.002-1.030); Urine Urobilinogen Negative (Negative)
[2021-03-19 16:49] LABS: Urine Bacteria Absent (Absent); Urine Red Blood Cell Absent (Absent); Urine Squamous Epithelial Cell Present (Absent); Urine Transitional Epithelial Present (Absent); Urine White Blood Cell 3+(>20/hpf) (Absent)
[2021-03-19 17:40] LABS: ABS Eosinophils 0.1 10^3/ul (0-0.6); ABS Lymphocytes 1.5 10^3/ul (1.0-4.8); ABS Monocytes 0.7 10^3/ul (0-0.8); ABS Neutrophils 7.6 10^3/ul (1.5-7.7); Eosinophil % 0.7 %; Hematocrit 38 % (35-47); Hemoglobin 12.4 g/dL (12.0-16.0); Lymphocyte % 15.1 %; Mean Corpuscular HGB Conc 32 g/dL (31-36); Mean Corpuscular Hemoglobin 28 pg (27-31); Mean Corpuscular Volume 85 fL (80-97); Mean Platelet Volume 8.2 fL (7.4-10.4); Platelet Count 306 10^3/uL (150-450); Red Blood Count 4.51 10^6 /uL (3.70-4.87); Red Cell Distribution Width 16 % (10-15); White Blood Count 9.9 10^3/uL (3.5-10.8)
[2021-03-19 17:54] LABS: Urine Benzodiazepine Screen None Detected (None Detect); Urine Cannabinoids Screen None Detected (None Detect); Urine Opiates Screen None Detected (None Detect)
[2021-03-19 17:58] LABS: ALT 19 U/L (7-52); AST 30 U/L (13-39); Albumin 4.2 g/dL (3.2-5.2); Albumin/Globulin Ratio 1.3 (1-3); Alkaline Phosphatase 84 U/L (35-149); Anion Gap 12 mmol/L (2-11); Blood Urea Nitrogen 16 mg/dL (6-24); CO2 Carbon Dioxide 21 mmol/L (22-32); Calcium 9.6 mg/dL (8.6-10.3); Chloride 108 mmol/L (101-111); EGFR African American 83.6 (>60); EGFR Non-African American 69.1 (>60); Globulin 3.2 g/dL (2-4); Glucose 134 mg/dL (70-100); Potassium 3.7 mmol/L (3.5-5.0); Sodium 141 mmol/L (135-145); Total Protein 7.4 g/dL (6.4-8.9)
[2021-03-19 18:29] LABS: Acetaminophen < 15 mcg/mL; Alcohol, S < 10 mg/dL (<10); Salicylate < 2.50 mg/dL (<30)
[2021-03-20] MEDS ORDERED: cefTRIAXone 1 gm/50 mL NS BAG 1 GM/50 ML BAG IVPB ONE (00:26)
[2021-03-20] MEDS ORDERED: Dextrose 50% Syringe 50 ml 25 GM/50 ML SYRINGE IV PUSH PRN (01:42)
[2021-03-20] MEDS: Enoxaparin 40 MG/0.4 ML SYR SUBCUT SCH ×2 (04:45→21:01)
[2021-03-20 05:00] LABS: ABS Basophils 0.1 10^3/ul (0-0.2); ABS Eosinophils 0.2 10^3/ul (0-0.6); ABS Lymphocytes 1.6 10^3/ul (1.0-4.8); ABS Monocytes 0.7 10^3/ul (0-0.8); ABS Neutrophils 5.7 10^3/ul (1.5-7.7); Eosinophil % 1.8 %; Hematocrit 35 % (35-47); Hemoglobin 11.7 g/dL (12.0-16.0); Lymphocyte % 19.1 %; Mean Corpuscular HGB Conc 34 g/dL (31-36); Mean Corpuscular Hemoglobin 28 pg (27-31); Mean Corpuscular Volume 84 fL (80-97); Mean Platelet Volume 8.4 fL (7.4-10.4); Platelet Count 265 10^3/uL (150-450); Red Blood Count 4.14 10^6 /uL (3.70-4.87); Red Cell Distribution Width 16 % (10-15); White Blood Count 8.2 10^3/uL (3.5-10.8)
[2021-03-20 05:19] LABS: Calcium 9.2 mg/dL (8.6-10.3); EGFR African American 98.8 (>60); EGFR Non-African American 81.6 (>60); Potassium 3.4 mmol/L (3.5-5.0)
[2021-03-20] MEDS: Insulin GLARGINE 100 un/ml 10 ml VIAL SUBCUT SCH (09:22)
[2021-03-20] MEDS: Potassium Chlor 20 meq TAB.ER PO SCH (09:23)
[2021-03-20] MEDS: Latanoprost 0.005% 2.5 ml BTL BOTH EYES SCH (21:01)
[2021-03-21] MEDS ORDERED: cefTRIAXone 1 gm/50 mL NS BAG 1 GM/50 ML BAG IVPB SCH (01:00)
[2021-03-21] MEDS: Potassium Chlor 20 meq TAB.ER PO SCH (09:34)
[2021-03-21] MEDS: Insulin GLARGINE 100 un/ml 10 ml VIAL SUBCUT SCH (09:35)
[2021-03-21] MEDS: Enoxaparin 40 MG/0.4 ML SYR SUBCUT SCH (20:45)
[2021-03-21] MEDS: Latanoprost 0.005% 2.5 ml BTL BOTH EYES SCH (20:46)
[2021-03-22] MEDS: Insulin GLARGINE 100 un/ml 10 ml VIAL SUBCUT SCH (09:04)
[2021-03-22] MEDS: Potassium Chlor 20 meq TAB.ER PO SCH (09:05)
[2021-03-22] MEDS: Enoxaparin 40 MG/0.4 ML SYR SUBCUT SCH (20:17)
[2021-03-22] MEDS: Latanoprost 0.005% 2.5 ml BTL BOTH EYES SCH (20:22)
[2021-03-23] MEDS: Insulin GLARGINE 100 un/ml 10 ml VIAL SUBCUT SCH (08:47)
[2021-03-23] MEDS: Potassium Chlor 20 meq TAB.ER PO SCH (08:47)
[2021-03-23 12:30] VITALS: BP 140/74
== END 2021-03-23 12:59 | disposition swing bed (61) ==
LOC: ED 15:13 → MEDTELE 03-20 01:31 → INTOOBSV 03-20 01:31
PROVIDERS: ADMIT Internal Medicine; ATTEND Hospitalist

== ENCOUNTER 2021-03-23 14:00 | Inpatient (IN) ==
[2021-03-23] MEDS ORDERED: Dextrose 50% Syringe 50 ml 25 GM/50 ML SYRINGE IV PUSH PRN ×3 (17:05→17:26)
[2021-03-23 18:12] LABS: Glucose Confirmatory 474 mg/dL (70-100)
[2021-03-23] MEDS: Enoxaparin 40 MG/0.4 ML SYR SUBCUT SCH (21:16)
[2021-03-23] MEDS: Latanoprost 0.005% 2.5 ml BTL BOTH EYES SCH (21:17)
[2021-03-24] MEDS: Insulin GLARGINE 100 un/ml 10 ml VIAL SUBCUT SCH (08:52)
[2021-03-24] MEDS: Enoxaparin 40 MG/0.4 ML SYR SUBCUT SCH (19:28)
[2021-03-24] MEDS: Latanoprost 0.005% 2.5 ml BTL BOTH EYES SCH (19:31)
[2021-03-25] MEDS ORDERED: Lorazepam PYXIS KEY PRN ×3 (06:24→17:07)
[2021-03-25] MEDS: LORazepam 2 mg VIAL 1 ml IV PUSH ONE ×2 (06:35→07:02)
[2021-03-25] MEDS ORDERED: LORazepam 2 mg VIAL 1 ml IM ONE (06:40)
[2021-03-25] MEDS: Insulin GLARGINE 100 un/ml 10 ml VIAL SUBCUT SCH (08:22)
[2021-03-25] MEDS ORDERED: LORazepam 2 mg VIAL 1 ml IV PUSH PRN (17:07)
[2021-03-25] MEDS ORDERED: Haloperidol 5 mg/ml SDV IV/IM 5 MG/ML AMP ONE (17:14)
[2021-03-25] MEDS: Haloperidol 5 mg/ml SDV IV/IM 5 MG/ML AMP IM PRN (17:15)
[2021-03-25] MEDS: Enoxaparin 40 MG/0.4 ML SYR SUBCUT SCH (19:48)
[2021-03-25] MEDS: Latanoprost 0.005% 2.5 ml BTL BOTH EYES SCH (19:49)
[2021-03-26] MEDS: Haloperidol 5 mg/ml SDV IV/IM 5 MG/ML AMP IM PRN (01:03)
[2021-03-26] MEDS: Nystatin TOP POWDER 15 GM BTL TOPICAL SCH ×3 (02:55→20:31)
[2021-03-26] MEDS: Insulin GLARGINE 100 un/ml 10 ml VIAL SUBCUT SCH (08:49)
[2021-03-26] MEDS: Latanoprost 0.005% 2.5 ml BTL BOTH EYES SCH (20:30)
[2021-03-26] MEDS: Enoxaparin 40 MG/0.4 ML SYR SUBCUT SCH (20:31)
[2021-03-27] MEDS ORDERED: Senna TAB 8.6 mg TAB PO PRN (08:15)
[2021-03-27] MEDS ORDERED: Magnesium Hydroxide LIQ 30 ML UDC PO PRN (08:15)
[2021-03-27] MEDS: Insulin GLARGINE 100 un/ml 10 ml VIAL SUBCUT SCH (09:30)
[2021-03-27] MEDS: Polyethylene Glycol 3350 17 GM PACKET PO PRN (09:30)
[2021-03-27] MEDS: Nystatin TOP POWDER 15 GM BTL TOPICAL SCH ×2 (09:31→20:54)
[2021-03-27] MEDS: Magnesium Hydroxide LIQ 30 ML UDC PO SCH ×2 (09:31→21:00)
[2021-03-27] MEDS: Enoxaparin 40 MG/0.4 ML SYR SUBCUT SCH (20:51)
[2021-03-27] MEDS: Latanoprost 0.005% 2.5 ml BTL BOTH EYES SCH (20:54)
[2021-03-28] MEDS: Insulin GLARGINE 100 un/ml 10 ml VIAL SUBCUT SCH (09:06)
[2021-03-28] MEDS: Polyethylene Glycol 3350 17 GM PACKET PO PRN (09:06)
[2021-03-28] MEDS: Magnesium Hydroxide LIQ 30 ML UDC PO SCH ×2 (09:10→19:59)
[2021-03-28] MEDS: Nystatin TOP POWDER 15 GM BTL TOPICAL SCH ×2 (09:11→19:57)
[2021-03-28] MEDS: Latanoprost 0.005% 2.5 ml BTL BOTH EYES SCH (19:55)
[2021-03-28] MEDS: Enoxaparin 40 MG/0.4 ML SYR SUBCUT SCH (19:55)
[2021-03-29 07:58] VITALS: BP 148/85
[2021-03-29] MEDS: Magnesium Hydroxide LIQ 30 ML UDC PO SCH (08:44)
[2021-03-29] MEDS: Polyethylene Glycol 3350 17 GM PACKET PO PRN (08:45)
[2021-03-29] MEDS: Insulin GLARGINE 100 un/ml 10 ml VIAL SUBCUT SCH (08:45)
[2021-03-29] MEDS: Nystatin TOP POWDER 15 GM BTL TOPICAL SCH (09:07)
== END 2021-03-29 11:47 | disposition home or self-care (01) | DRG 57 ==
LOC: MEDTELE 14:00
PROVIDERS: ADMIT Hospitalist; ATTEND Internal Medicine

== ENCOUNTER 2021-12-25 13:46 | Inpatient (IN) ==
[2021-12-25 18:03] LABS: ABS Eosinophils 0.1 10^3/ul (0-0.6); ABS Lymphocytes 1.5 10^3/ul (1.0-4.8); ABS Monocytes 0.8 10^3/ul (0-0.8); ABS Neutrophils 5.6 10^3/ul (1.5-7.7); Eosinophil % 1.3 %; Hematocrit 37 % (35-47); Hemoglobin 11.9 g/dL (12.0-16.0); Lymphocyte % 18.8 %; Mean Corpuscular HGB Conc 33 g/dL (31-36); Mean Corpuscular Hemoglobin 27 pg (27-31); Mean Corpuscular Volume 84 fL (80-97); Mean Platelet Volume 8.5 fL (7.4-10.4); Platelet Count 259 10^3/uL (150-450); Red Blood Count 4.38 10^6 /uL (3.70-4.87); Red Cell Distribution Width 16 % (10-15)
[2021-12-25 18:39] LABS: Albumin/Globulin Ratio 1.4 (1-3); Calcium 9.8 mg/dL (8.6-10.3); Globulin 2.8 g/dL (2-4); Potassium 3.7 mmol/L (3.5-5.0); Total Bilirubin 0.4 mg/dL (0.2-1.0); Total Protein 6.8 g/dL (6.4-8.9); eGFR CKD-EPI 83.5 (>60)
[2021-12-25] MEDS ORDERED: Dextrose 50% Syringe 50 ml 25 GM/50 ML SYRINGE IV PUSH PRN (21:32)
[2021-12-25] MEDS ORDERED: Al Hydrox/Mg Hydrox/Simet LIQ 30 ML UDC PO PRN (21:33)
[2021-12-25] MEDS: Enoxaparin 40 MG/0.4 ML SYR SUBCUT SCH (23:04)
[2021-12-26] MEDS: Insulin GLARGINE 100 un/ml 10 ml VIAL SUBCUT SCH (10:00)
[2021-12-26 10:30] LABS: Urine Appearance Clear; Urine Bilirubin Negative (Negative); Urine Blood Negative (Negative); Urine Color Yellow; Urine Glucose 1+(50 mg/dL) (Negative); Urine Ketones Negative (Negative); Urine Nitrite Negative (Negative); Urine Protein Negative (Negative); Urine Urobilinogen Negative (Negative)
[2021-12-26] MEDS ORDERED: Haloperidol 5 mg/ml SDV IV/IM 5 MG/ML AMP IV SLOW PU PRN (10:57)
[2021-12-26] MEDS ORDERED: Haloperidol 5 mg/ml SDV IV/IM 5 MG/ML AMP ONE (10:59)
[2021-12-26] MEDS: Enoxaparin 40 MG/0.4 ML SYR SUBCUT SCH (20:14)
[2021-12-26] MEDS: Latanoprost 0.005% 2.5 ml BTL BOTH EYES SCH (20:15)
[2021-12-27] MEDS: Insulin GLARGINE 100 un/ml 10 ml VIAL SUBCUT SCH (09:35)
[2021-12-27] MEDS: Enoxaparin 40 MG/0.4 ML SYR SUBCUT SCH (21:36)
[2021-12-27] MEDS: Latanoprost 0.005% 2.5 ml BTL BOTH EYES SCH (21:45)
[2021-12-28] MEDS: Insulin GLARGINE 100 un/ml 10 ml VIAL SUBCUT SCH (10:29)
[2021-12-28] MEDS: Enoxaparin 40 MG/0.4 ML SYR SUBCUT SCH (21:19)
[2021-12-28] MEDS: Latanoprost 0.005% 2.5 ml BTL BOTH EYES SCH (21:21)
[2021-12-29] MEDS ORDERED: Insulin GLARGINE 100 un/ml 10 ml VIAL SUBCUT SCH (09:00)
[2021-12-29] MEDS: Enoxaparin 40 MG/0.4 ML SYR SUBCUT SCH (20:37)
[2021-12-29] MEDS: Latanoprost 0.005% 2.5 ml BTL BOTH EYES SCH (20:38)
[2021-12-30] MEDS ORDERED: NS 0.9% 500 ml BAG 500 ML IV ONE (08:45)
[2021-12-30] MEDS ORDERED: Insulin GLARGINE 100 un/ml 10 ml VIAL SUBCUT SCH (09:00)
[2021-12-30 10:02] LABS: Calcium 10.4 mg/dL (8.6-10.3); Potassium 4.9 mmol/L (3.5-5.0); eGFR CKD-EPI 32.7 (>60)
[2021-12-30] MEDS ORDERED: Dextrose 50% Syringe 50 ml 25 GM/50 ML SYRINGE IV PUSH PRN ×3 (12:25→16:02)
[2021-12-30 12:30] LABS: Calcium 10.2 mg/dL (8.6-10.3); Potassium 4.6 mmol/L (3.5-5.0); eGFR CKD-EPI 26.2 (>60)
[2021-12-30 13:24] LABS: ABS Lymphocytes 0.5 10^3/ul (1.0-4.8); ABS Monocytes 0.9 10^3/ul (0-0.8); ABS Neutrophils 11.5 10^3/ul (1.5-7.7); Hematocrit 39 % (35-47); Hemoglobin 12.4 g/dL (12.0-16.0); Lymphocyte % 3.8 %; Mean Corpuscular HGB Conc 32 g/dL (31-36); Mean Corpuscular Hemoglobin 27 pg (27-31); Mean Corpuscular Volume 85 fL (80-97); Mean Platelet Volume 9.3 fL (7.4-10.4); Platelet Count 285 10^3/uL (150-450); Red Blood Count 4.56 10^6 /uL (3.70-4.87); Red Cell Distribution Width 16 % (10-15)
[2021-12-30] MEDS ORDERED: Vancomycin 1,000 MG in NS 0.9% 250 ml 250 ML IVPB ONE (15:32)
[2021-12-30] MEDS ORDERED: hydrALAZINE 20 mg/ml 1 ML Vial IV IV SLOW PU PRN (15:38)
[2021-12-30] MEDS ORDERED: Insulin Infusion 100unit/100mL 100 UNIT/100 ML BAG IV SCH ×2 (16:00→17:00)
[2021-12-30] MEDS ORDERED: Vancomycin per Pharmacy 1 EA NOTE FOLLOW UP SCH (16:00)
[2021-12-30] MEDS ORDERED: Lactated Ringers 1000 ml BAG 1,000 ML IV SCH (16:00)
[2021-12-30] MEDS ORDERED: Cefepime 2 GM in Dextrose 2 GM/50 ML BAG IV SCH (16:00)
[2021-12-30 16:02] LABS: Urine Appearance Clear; Urine Bilirubin Negative (Negative); Urine Blood 1+ (Negative); Urine Color Yellow; Urine Glucose 3+(>=500 mg/dL) (Negative); Urine Ketones Negative (Negative); Urine Nitrite Negative (Negative); Urine Protein Negative (Negative); Urine Specific Gravity 1.018 (1.002-1.030); Urine Urobilinogen Negative (Negative)
[2021-12-30] MEDS ORDERED: Lactated Ringers 1000 ml BAG 1,000 ML IV ONE (16:02)
[2021-12-30 16:08] LABS: Urine Bacteria Absent (Absent); Urine Red Blood Cell Trace(0-2/hpf) (Absent); Urine Squamous Epithelial Cell Present (Absent); Urine White Blood Cell Trace(0-5/hpf) (Absent)
[2021-12-30 16:17] LABS: Blood Urea Nitrogen 61 mg/dL (6-24); CO2 Carbon Dioxide 23 mmol/L (22-32); Chloride 104 mmol/L (101-111); Sodium 137 mmol/L (135-145)
[2021-12-30 16:21] LABS: PCO2 Arterial 40 mmHg (35-45); PO2 Arterial 92 mmHg (80-100)
[2021-12-30 16:23] LABS: Anion Gap 10 mmol/L (2-11); Glucose 523 mg/dL (70-100)
[2021-12-30 16:40] LABS: TSH Ultra Thyroid Stim Horm 2.37 mcIU/mL (0.34-5.60)
[2021-12-30] MEDS ORDERED: Vancomycin 2,000 MG in NS 0.9% 500 ml BAG 500 ML IVPB ONE (17:00)
[2021-12-30] MEDS ORDERED: Atropine 1% (ORAL/SL) 15 ML BTL SL PRN (17:36)
[2021-12-30] MEDS ORDERED: Morphine 2 MG/ML SYRINGE IV PRN (17:36)
[2021-12-30] MEDS ORDERED: Lorazepam PYXIS KEY PRN (17:36)
[2021-12-30] MEDS ORDERED: LORazepam 2 mg VIAL 1 ml IV PUSH PRN (17:36)
[2021-12-31 02:00] LABS: Magnesium 2.4 mg/dL (1.9-2.7); Potassium Redraw 4.6 mmol/L (3.5-5.0)
[2021-12-31] MEDS ORDERED: Senna TAB 8.6 mg TAB PO PRN (19:14)
[2021-12-31] MEDS ORDERED: Ondansetron 4 mg VIAL 2 MG/ML 2 ml VIAL IV PRN (19:14)
[2022-01-01] MEDS: Polyethylene Glycol 3350 17 GM PACKET PO PRN (03:39)
[2022-01-01] MEDS ORDERED: Atropine 1% (ORAL/SL) 15 ML BTL SL PRN (11:30)
[2022-01-02] MEDS: Polyethylene Glycol 3350 17 GM PACKET PO PRN (09:49)
[2022-01-02] MEDS: LORazepam 2 mg VIAL 1 ml IV PUSH PRN (13:01)
[2022-01-03 08:04] VITALS: BP 140/68
[2022-01-03] MEDS: Morphine 2 MG/ML SYRINGE IV PRN ×5 (10:36→22:00)
[2022-01-04] MEDS: Morphine 2 MG/ML SYRINGE IV PRN ×6 (00:21→12:03)
[2022-01-04] MEDS: LORazepam 2 mg VIAL 1 ml IV PUSH PRN ×2 (07:49→12:02)
== END 2022-01-04 13:05 | disposition expired | DRG 951 ==
LOC: UNDODISIN → EDHOLD 13:46 → ED 13:46 → EDHOLD 12-26 00:59 → MEDTELE 12-26 01:37 → SUATTDRO 12-26 13:23 → ICU 12-30 15:34 → MEDTELE 12-31 01:03 → MED 12-31 13:54
PROVIDERS: ADMIT Internal Medicine; ATTEND Internal Medicine